=== PATIENT | male | born 1965 | race Caucasian/White ===

== ENCOUNTER 2020-01-22 15:58 | Inpatient (IN) | payer BC, MEDICAID, SELFPAY ==
[2020-01-22] VITALS (9 sets, daily range): BP systolic 128–182; BP diastolic 94–127; PULSE 72–91; RESP 14–23; TEMP 35.7–36; O2SAT 95–98; BMI 31.5
--- NOTE | ~2020-01-22 | US_ITS ---
US right upper quadrant DATE: 01/24/2020 08:32 INDICATION: Elevated liver function tests TECHNIQUE: Real-time imaging and Doppler analysis of the right upper quadrant COMPARISON: None FINDINGS: There is no evidence of gallstones, gallbladder wall thickening, pericholecystic fluid aleisha ection. Negative sonographic Ramirez's sign. The common bile duct measures 3.5 mm, normal. Normal hepatopedal portal venous flow direction. The pancreas is obscured by bowel gas. IMPRESSION: Pancreas is obscured Hepatic steatosis Unremarkable gallbladder Reviewed, dictated and finalized at [facility]. Reviewed, dictated and finalized at location A.
--- NOTE | ~2020-01-22 | CT_ITS ---
EXAMINATION: CT brain wo con EXAM DATE: 01/22/2020 20:15 INDICATION: Seizure in the waiting room. TECHNIQUE: Spiral CT of the head was performed without contrast. Axial, coronal and sagittal images were reviewed. The dose-length product (DLP) for this examination was 605.33 mGy-cm. The exposure w as tailored according to patient size, and iterative reconstruction (ASIR) was used as additional dos e reduction technique. There is no prior study for comparison. FINDINGS: There is no acute intraparenchymal hemorrhage. No evidence of intraparenchymal brain mass lesion. No evidence of acute infarction. There is no mass effect or midline shift. The ventricles are normal in size. There are no extra-axial collections. There are no acute calvarial fractures. T he orbits are unremarkable. Soft tissue is unremarkable. The visualized sinuses and mastoid air lisa ls are well aerated. IMPRESSION: 1. No acute intracranial findings. Reviewed, dictated and finalized at location A.
--- NOTE | ~2020-01-22 | XR_ITS ---
XR chest 1V portable DATE: 01/24/2020 07:59 INDICATION: Shortness of breath TECHNIQUE: Portable AP chest on 01/24/2020 at 0758 hours COMPARISON: None FINDINGS: Normal heart size. No hilar or mediastinal enlargement. No pulmonary infiltrate or consolid ation, pleural effusion or pulmonary vascular congestion or pneumothorax is evident. Mild left apical capping. IMPRESSION: No active cardiopulmonary disease Reviewed, dictated and finalized at location A.
--- NOTE | ~2020-01-22 | XR_ITS ---
EXAMINATION: XR chest 1V portable DATE: 01/27/2020 12:17 INDICATION: Shortness of breath. TECHNIQUE: A single frontal view of the chest was obtained. COMPARISON: Chest single view 01/24/2020 FINDINGS: There is mild atelectasis in left lower lung zone. No pleural effusion or pneumothorax. The heart size is normal. IMPRESSION: 1. Mild atelectasis in left lower lung zone. Reviewed, dictated and finalized at location A.
--- NOTE | 2020-01-22 18:30 | PC.NURSE ---
pt observed in waiting room start shaking and slidding out of a wheel chair. Possible seizure activity noted. RN brought back to room 14 and placed pt on bed with seizure pads. BS 197. RN at bedside for iv insertion. pt placed on cardiac, nibp, o2 monitor at this time.
[2020-01-22 18:33] LABS: Glucose Point of Care 197 (65-105)
[2020-01-22 18:57] LABS: Basophils Absolute Auto 0.1 K/mm3 (0.0-0.1); Basophils Percent Auto 0.4 % (0.2-1.2); Eosinophils Percent Auto 0.3 % (0-4.4); Hematocrit 52.8 % (42.0-52.0); Hemoglobin 18.2 g/dL (14.0-18.0); Immature Granulocyte Absolute 0.07 K/mm3 (0.00-0.031); Immature Granulocyte Percent A 0.6 % (0-0.5); Lymphocytes Absolute Auto 1.81 K/mm3 (0.9-3.2); Lymphocytes Percent Auto 15.8 % (18.3-44.2); Mean Corpuscular HGB Conc 34.5 g/dl (32-36); Mean Corpuscular Volume 95.7 fl (80-100); Mean Platelet Volume 10.2 fl (7.4-10.4); Monocytes Absolute Auto 1.2 K/mm3 (0.1-0.6); Monocytes Percent Auto 10.5 % (2.6-8.5); Neutrophils Absolute Auto 8.3 K/mm3 (1.3-6.7); Neutrophils Percent Auto 72.4 % (45.5-73.1); Platelet Count Result 139 k/mm3 (150-375); Red Blood Count 5.52 M/mm3 (4.6-6.20); Red Cell Distribution Width 12.1 % (11.5-14.5); White Blood Count 11.5 K/mm3 (4.5-10.0)
[2020-01-22 19:14] LABS: Ethanol < 10 mg/dL (<10)
[2020-01-22] MEDS: LACTATED RINGERS 1,000 ML 999 ML IV CONT ×2 (19:35→21:55)
[2020-01-22] MEDS: THIAMINE HCL 200 MG/2 ML VIAL IV PUSH (19:35)
[2020-01-22 19:38] LABS: Albumin Level 4.5 g/dL (3.5-5.1); Alkaline Phosphatase 123 U/L (38-126); Anion Gap 22.8 mmol/L (7-16); Aspartate Amino Transferase 153 U/L (17-59); Blood Urea Nitrogen 10 mg/dL (9-20); Calcium 9.3 mg/dL (8.4-10.2); Carbon Dioxide 24 mmol/L (22-30); Chloride 88 mmol/L (98-107); Estimated CRCL calculation 163 ml/min; Estimated Glomerular Filt Rate > 60; Glucose 156 mg/dL (75-110); Lipase 181 U/L (23-300); Potassium 3.8 mmol/L (3.4-5.0); Sodium 131 mmol/L (137-145)
[2020-01-22 19:45] LABS: Alanine Aminotransferase 66 U/L (4-50)
--- NOTE | 2020-01-22 19:52 | ED.GENADULT ---
HPI - General Adult General Chief complaint: Unspecified Stated complaint: Muscle Spasms Time Seen by Provider: 01/22/20 18:45 Source: patient and family History of Present Illness HPI narrative: 54-year-old male He is currently out of work and as such has been drinking about 18+ beers a day sometimes with a little bit of hard liquor but generally not He was recently seen for back pain and had some new medications prescribed including Neurontin and metformin About 3 days ago he started to become more shaky and tremulous and dizzy and his back pain got worse He is also had nausea vomiting and anorexia for a couple of days As such his alcohol consumption is rather precipitously dropped from the above 18 beers a day to 0-1 beers a day His shakiness has increased His thinks he may have been hallucinating He had a brief seizure in the waiting room while his blood sugar was 190 Onset (ago): day(s) Associated symptoms: confusion, diaphoresis, loss of appetite, malaise, nausea/vomiting and seizure Treatments prior to arrival: none Related Data Home Medications Medication Instructions Recorded Confirmed metoprolol tartrate 01/22/20 sertraline 01/22/20 Allergies Allergy/AdvReac Type Severity Reaction Status Date / Time No Known Allergies Allergy Unverified 01/22/20 16:48 Review of Systems Review of Systems: All systems reviewed & are unremarkable except as noted in HPI and below Constitutional: Constitutional: Reports chills, Reports fatigue, Denies fever(s), Denies headache(s) and Denies night sweats Eyes: Eyes: Denies change in vision, Denies loss of vision and Denies other visual disturbances ENT: Denies headache(s), Denies hoarseness, Denies epistaxis, Denies nasal congestion and Denies sore throat Cardiovascular: Cardiovascular: Denies chest pain, Denies leg edema, Denies palpitations and Denies dyspnea Respiratory: Respiratory: Denies cough, Denies dyspnea and Denies wheezing Gastrointestinal: Gastrointestinal: Denies abdominal pain, Reports diarrhea, Reports nausea and Reports vomiting Genitourinary: Genitourinary: Denies hematuria, Denies dysuria and Denies urinary frequency Musculoskeletal: Musculoskeletal: Denies abnormal gait, Denies deformity, Denies joint swelling, Denies muscle weakness and Denies numbness Integumentary/Breasts: Skin/Breast: Denies rash, Denies unusual bruising and Denies wounds Neurologic: Denies abnormal gait, Reports confusion, Reports dizziness, Denies headache(s), Denies focal weakness, Denies loss of vision, Denies numbness and Reports weakness Psychiatric: Psychiatric: Reports no additional psychiatric complaints Endocrine: Endocrine: Denies fatigue and Denies palpitations Hematologic/Lymphatic: Hematologic/Lymphatic: Denies easy bleeding and Denies easy bruising Allergic/Immunologic: Allergic/Immunologic: Denies wheezing [facility] Social History Social History Gender identity (if verbalized by the patient): Male Exam Const: General: confusion Limitations: altered mental status HENMT: Head: normal to inspection Mouth: Yes moist mucous membranes Other: oral laceration Eyes: Conjunctivae: conjunctivae normal Pupils: Equal, round and reactive pupils present Resp: Effort & Inspection: normal respiratory effort Auscultation: clear to auscultation bilaterally and no wheezes Cardio: Rate: regular rate Rhythm: regular rhythm GI: Inspection: non-distended GI Palp: Yes Soft to palpation Skin: General skin exam: normal color and no jaundice Neuro: General: moves all extremities, no meningeal signs and no focal motor deficits Other: Tremulous Extrem: Other: Abrasion to the back of the left shoulder Course Course Emergency Course: d/w dr verdugo for admit wd tx'ed w/ jarek cote Vital Signs Vital signs: Vital Signs Temperature 35.7 C L 01/22/20 16:36 Pulse Rate 91 01/22/20 16:36
--- NOTE | 2020-01-22 20:05 | ECG_ITS ---
Measurements Intervals [place] Rate: 72 P: 66 [place]: 173 QRS: 4 QRSD: 96 T: 47 QT: 402 QTc: 443 Interpretive Statements SINUS RHYTHM BASELINE ARTIFACT- I, II, III, AVR, AVL, AVF, V1-V6 BORDERLINE ECG Electronically Signed On 01-23-2020 7:34:32 CDT by Damir Larsen D.O.
[2020-01-22 21:04] LABS: Amphetamine Screen Urine Negative (Negative); Barbiturate Screen Urine Negative (Negative); Benzodiazepines Screen Urine Positive (Negative); Cannabinoid Screen Urine Negative (Negative); Cocaine Screen Urine Negative (Negative); Methadone Screen Urine Negative (Negative); Opiate Screen Urine Negative (Negative); Phencyclidine Screen Urine Negative (Negative)
[2020-01-22] MEDS: chlordiazePOXIDE 25 MG CAPSULE 50 MG PO ×2 (21:55→23:59)
--- NOTE | 2020-01-22 23:15 | ADMGEN ---
This patient, Vu Yung, was admitted to IMU Room 207-01. Patient/family oriented to hospital policies and general routines including ID bracelet, bed and alarms, visiting hours, pain management, procedures, bathroom and other care routines, personal items, smoking policy, room service/diet, and visiting hours. Valuables list has been completed. Information on how to activate the Rapid Response Team has been discussed. Patient/Family are encouraged to report perceived risks to care and to ask questions if they do not understand what they are told or what they should do.
--- NOTE | 2020-01-22 23:30 | PM.IMHP ---
H&P: HPI History of Present Illness Chief complaint: muscle spasms, shaking Narrative: date and time of patient contact: 01/22/2020 at 11:30 p.m. Vu Yung is a 54 year old male with a past medical history of hypertension, diabetes and chronic alcohol abuse who presented to the ER with complaints of involuntary muscle spasms and shaking. he reports that he went to a new primary care doctor January 06 and was started on Wellbutrin in addition to his prior prescription for sertraline. He returned to his primary care provider on the and received new prescriptions for metformin Neurontin and diclofenac. He did not start the metformin. However he did start the Neurontin and diclofenac. A few days after starting the medications he became dizzy And had some vomiting. He stopped taking the medications. however he had not been able to drink his usual amount of alcohol during the days when he was having dizziness and vomiting. He denies hematemesis or coffee-ground emesis. he has not had any further nausea or vomiting since arrival to the ER. He denies dizziness currently. He has not had any diarrhea or changes in bowel habits. He usually drinks about 18 alcoholic beverages a day. Over recent days he has only been able to drink 1 or 2 alcoholic beverages. His last alcoholic beverage was at least 2 days ago. The patient is easily distracted and had reported having some visual hallucinations. He reports a couple of days of having hallucinations was laying in bed. He would see objects that he thought were present but when he would reach for them they would be gone. He had also been noticing muscle spasms in his legs and shaking all over. he had been unable to get up and walk around due to his shaking. His girlfriend thought that his symptoms may be due to anxiety because the patient's brother 3 days ago complications of coronary artery disease and stage IV lung cancer. Patient was tremoring so much in the ER waiting room that it was thought he may have had a seizure. The patient vehemently denies having a seizure. He still states that he was having an anxiety attack. at the time of my interview patient could not do serial additions and stated that her 7+ 7 equal 13. He initially had difficulty naming the hospital. He required frequent redirection and was repeatedly trying to climb out of the bed. He had perfuse diaphoresis and was tremoring to the point that he was shaking the bed. He stated that he has had intermittent paresthesias over the last couple of days. Reports the paresthesias have improved since he has received medications here. He reported having facial paresthesias a couple of weeks ago and was evaluated at [facility]. Patient denies feeling anxious but is evasive when answering questions regarding anxiety or mood. The patient's CIWA score at the time my evaluation was 23. Source of information is ER records and patient report. The patient himself is a poor historian. Review of Systems Review of Systems: Narrative: 12 systems were reviewed with pertinent positives and negatives per HPI. Except as documented in the HPI, all other systems were reviewed and are negative. However , the patient is confused and is a poor historian. [facility] Past Medical History Medical History (Updated 01/23/20 @ 02:07 by Shayy Qureshi DO) Chronic lower back pain Depression Essential hypertension Obstructive sleep apnea intolerant to CPAP therapy Type 2 diabetes mellitus Surgical History Surgical History (Updated 01/23/20 @ 00:48 by Shayy Qureshi DO) History of hand surgery right hand surgery x5 due to trauma Family History Family History (Updated 01/23/20 @ 01:55 by Shayy Qureshi DO) Sibling , brother 01/20/2020 At 61 years of age Lung cancer Heart attack Social History Social History (Updated 01/23/20 @ 01:57 by Shayy Qureshi DO) Social History: Primary care provider:
[2020-01-23] VITALS (21 sets, daily range): BP systolic 97–159; BP diastolic 51–104; PULSE 65–101; RESP 18–45; TEMP 36.5–37.7; O2SAT 93–100
[2020-01-23 00:04] LABS: Glucose Point of Care 138 (65-105)
[2020-01-23] MEDS: chlordiazePOXIDE 25 MG CAPSULE 50 MG PO (00:14)
[2020-01-23] MEDS: LACTATED RINGERS 1,000 ML 125 ML IV CONT ×2 (00:17→07:57)
[2020-01-23] MEDS: NICOTINE (*PBKC) 4 MG GUM PO (03:54)
[2020-01-23] MEDS: chlordiazePOXIDE 25 MG CAPSULE 100 MG PO ×2 (05:07→14:19)
[2020-01-23 05:43] LABS: Glucose Point of Care 109 (65-105)
--- NOTE | 2020-01-23 05:43 | P.PNCROSS_ITS ---
Event Note Event Note Event Note: 01/23/2020 at around 5:20 a.m. nursing staff called me to notify me that the patient had climbed out of bed and was crawling on the floor. He was searching the floor for his nephews toy. The patient had artery he received over 250 mg and 112 hours. He had received a stat dose of 2 mg of Ativan in addition to the 2 mg of Ativan he had received an hour and 15 minutes prior. His next p.r.n. dose of Ativan was available to be given in subsequently the patient received 6 mg of Ativan in 2 hours. Despite these medications and measures the patient's CIWA score which had initially improved from 23 down to 20 has now climbed up to 30. on examination:He was having continuous hallucinations, moderately agitated and restless, extremely anxious, with obvious sweating and continuous tremor. Assessment: Alcohol withdrawal with worsening delirium Plan: I contacted the feather separator who agreed the patient would benefit from transfer to the ICU. I have ordered a Precedex bolus and continuous infusion. 30 minutes was spent in critical care activities. This case had a high probability of a clinically significant, sudden, or life threatening deterioration of this patient's condition which required my full and direct attention, intervention and personal management.
--- NOTE | 2020-01-23 06:06 | PC.NURSE ---
Called and spoke with pt's harriet Manriquez to let her know that pt would need to be moved over to icu for a sedative drip for withdrawal. She states that she understands.
--- NOTE | 2020-01-23 06:34 | PC.NURSE ---
This patient, Vu Yung, was received from [ 207] on 01/23/20 at 0620. Personal belongings list checked and signed. Patient/family oriented to unit policies and routines
--- NOTE | 2020-01-23 06:34 | PC.NURSE ---
This patient, Vu Yung, was transferred to [ icu 10] on 01/23/20 at 0615 for withdrawal symptoms unmanaged by ativan. Pt to be placed on precedex drip. Personal belongings sent with patient. Belongings list checked and signed with receiving [ ]. Report given to [Shelley ]. Appropriate documentation sent with patient.
[2020-01-23 08:03] LABS: Hematocrit 42.6 % (42.0-52.0); Hemoglobin 14.6 g/dL (14.0-18.0); Immature Platelet Fraction Pct 4.3 % (0.9-11.2); Mean Corpuscular HGB Conc 34.3 g/dl (32-36); Mean Corpuscular Hemoglobin 32.9 pg (26-34); Mean Corpuscular Volume 95.9 fl (80-100); Mean Platelet Volume 9.6 fl (7.4-10.4); Platelet Count Result 80 k/mm3 (150-375); Red Blood Count 4.44 M/mm3 (4.6-6.20); Red Cell Distribution Width 12.3 % (11.5-14.5); White Blood Count 4.7 K/mm3 (4.5-10.0)
[2020-01-23 08:10] LABS: Alanine Aminotransferase 55 U/L (4-50); Albumin Level 3.6 g/dL (3.5-5.1); Alkaline Phosphatase 91 U/L (38-126); Anion Gap 14.2 mmol/L (7-16); Aspartate Amino Transferase 98 U/L (17-59); Bilirubin,Total 2.1 mg/dL (0.2-1.3); Blood Urea Nitrogen 12 mg/dL (9-20); Calcium 8.8 mg/dL (8.4-10.2); Carbon Dioxide 28 mmol/L (22-30); Chloride 93 mmol/L (98-107); Estimated CRCL calculation 186 ml/min; Estimated Glomerular Filt Rate > 60; Glucose 132 mg/dL (75-110); Magnesium 1.4 mg/dL (1.6-2.3); Phosphorus 4.3 mg/dL (2.5-4.5); Potassium 3.2 mmol/L (3.4-5.0); Sodium 132 mmol/L (137-145)
[2020-01-23 08:42] LABS: Lipase 149 U/L (23-300)
[2020-01-23 09:15] LABS: Folic Acid 6.3 ng/mL (2.76->20)
--- NOTE | 2020-01-23 10:00 | WPDCNINT ---
Assessment and Plan Assessment and plan (1) Alcohol withdrawal: Code(s): F10.239 - Alcohol dependence with withdrawal, unspecified Status: Acute Assessment and Plan: Continue CIWA score monitoring; start scheduled Ativan IV (too somnolent for PO Librium at this time) and wean Precedex as able. Continue thiamine and folate. (2) Diabetes mellitus: Code(s): E11.9 - Type 2 diabetes mellitus without complications Status: Acute Assessment and Plan: Continue metformin when able to take PO. (3) Hypertension: Code(s): I10 - Essential (primary) hypertension Status: Acute Assessment and Plan: Continue metoprolol. (4) Thrombocytopenia: Code(s): D69.6 - Thrombocytopenia, unspecified Status: Acute Assessment and Plan: Query if related to alcoholic liver disease/splenic sequestration. May need abdominal imaging. Monitor. No bleeding. (5) Elevated LFTs: Code(s): R79.89 - Other specified abnormal findings of blood chemistry Status: Acute Assessment and Plan: May have alcoholic hepatitis vs development of cirrhosis. Check viral hepatitis panel and RUQ U/S in AM. Trend. Additional Plan Critical care time: 32 minutes. [employer] Consult Note Consult date: 01/23/20 Time Seen: 08:00 HPI: Vu Yung is a 54 year old male with a history of alcoholism, HTN, DM II, and ILYA not on CPAP who presented to the ED with involuntary shaking. The history is obtained from the Hospitalist H&P as he is currently encephalopathic and unable to provide. Per the H&P: He reports that he went to a new primary care doctor January 06 and was started on Wellbutrin in addition to his prior prescription for sertraline. He returned to his primary care provider on the and received new prescriptions for metformin Neurontin and diclofenac. He did not start the metformin. However he did start the Neurontin and diclofenac. A few days after starting the medications he became dizzy And had some vomiting. He stopped taking the medications. however he had not been able to drink his usual amount of alcohol during the days when he was having dizziness and vomiting. He typically drinks 18 beers a day but has not had a drink for the past 2-4 days. His brother 3 days prior to admission due to lung CA and CAD which may have contributed to his symptoms. He was admitted to the medical floor for alcohol withdrawals but had continued symptoms. He was transferred to the ICU for Precedex infusion. He has never had withdrawals before per his girlfriend. Review of Systems Review of Systems: ROS unobtainable: Yes unobtainable due to mental status PMFSH Past Medical History Medical History (Updated 01/23/20 @ 14:30 by Ildefonso Esquivel DO) Chronic lower back pain Depression Essential hypertension Obstructive sleep apnea intolerant to CPAP therapy Type 2 diabetes mellitus Surgical History Surgical History (Updated 01/23/20 @ 00:48 by Shayy Qureshi DO) History of hand surgery right hand surgery x5 due to trauma Family History Family History (Updated 01/23/20 @ 01:55 by Shayy Qureshi DO) Sibling , brother 01/20/2020 At 61 years of age Lung cancer Heart attack Social History Social History (Updated 01/23/20 @ 01:57 by Shayy Qureshi DO) Social History: Primary care provider: Sloan Peng the patient has 3 adult children who reportedly healthy. Smoking status: Former smoker Smokeless tobacco user: chewing tobacco Additional smoking assessment comments: 1 can of chewing tobacco daily since age 21. Alcohol intake: current Drinks per week: 126 Alcohol use details: Patient drinks about 18 pack a day. He has drank heavily since was 19 years old. Substance use: former Substance use type: marijuana Additional living arrangements comments: The patient lives with girlfriend for the last 8 years. He has a
[2020-01-23 13:26] LABS: Glucose Point of Care 128 (65-105)
[2020-01-23] MEDS: FAMOTIDINE 20 MG/2 ML VIAL IV PUSH ×2 (14:20→21:47)
[2020-01-23] MEDS: ENOXAPARIN 40 MG/0.4 ML SYRINGE SUB-Q (14:20)
[2020-01-23] MEDS: FOLIC ACID 1 MG TABLET PO (14:21)
[2020-01-23] MEDS: metFORMIN HCL 500 MG TABLET PO ×2 (14:21→18:29)
[2020-01-23] MEDS: SERTRALINE HCL 50 MG TABLET 100 MG PO (14:21)
[2020-01-23] MEDS: METOPROLOL SUCCINATE EXT REL 100 MG TABCR 200 MG PO (14:21)
[2020-01-23] MEDS: THIAMINE HCL 100 MG TABLET PO (14:22)
--- NOTE | 2020-01-23 14:46 | PM.IMPN ---
Progress Note: A&P Assessment and Plan (1) Alcohol withdrawal: Code(s): F10.239 - Alcohol dependence with withdrawal, unspecified Status: Acute Assessment and Plan: Patient was having hallucinations and his CIWA score on initial assessment was 23. Patient received Ativan IV and high dose Librium but his condition worsened and ultimately moved to ICU of 01/23/20 and started on Precedex. Librium stopped and started on scheduled Ativan IV. Appreciate concessions manager input. Continue Thiamine and Folate. (2) Alcoholism: Code(s): F10.20 - Alcohol dependence, uncomplicated Status: Acute Assessment and Plan: Will need to educate patient about benefits of abstaining from alcohol later. CM to provide information about services available to help stop drinking. (3) Diabetes mellitus: Code(s): E11.9 - Type 2 diabetes mellitus without complications Status: Acute Assessment and Plan: Glucose reviewed on 01/23/2020. Glucose well controlled. Metformin has been resumed. Continue to monitor with Accu-Cheks covering with sliding scale protocol. (4) Hypertension: Code(s): I10 - Essential (primary) hypertension Status: Acute Assessment and Plan: BP reviewed on 01/23/20. BP soft at times but overall stable. Continue to monitor closely. Continue Metoprolol XL 200mg. Watch for lows. (5) Polycythemia: Code(s): D75.1 - Secondary polycythemia Status: Acute Assessment and Plan: Hgb 18.2. [place] 2nd to volume depletion. Repeat Hgb down to 14. Continue to monitor. (6) Obstructive sleep apnea: Code(s): G47.33 - Obstructive sleep apnea (adult) (pediatric) Status: Acute Assessment and Plan: Margarita has odd respiratory pattern when he sleeps which could be related to his untreated ILYA and the sedation. Monitor closely. (7) Elevated LFTs: Code(s): R79.89 - Other specified abnormal findings of blood chemistry Status: Acute Assessment and Plan: LFTs elevated on admission with TB 2, AST 153 and ALT 66. Related to alcoholism and probable underlying alcoholic liver disease. AST and ALT trending downward. Will check RUQ US. Check hepatitis panel (8) Thrombocytopenia: Code(s): D69.6 - Thrombocytopenia, unspecified Status: Acute Assessment and Plan: Plt count 139K on admission but has dropped to 80K. Probably related to either underlying live disease or the toxic effects of alcohol. Contineue to monitor. Subjective Date/time seen: 01/23/20 14:46 Interval history: 54yo male with alcoholism, HTN and DM here for alcohol withdrawal. Patient moved to the ICU earlier and started on Precedex due to hallucinations and agitation. Patient seen in the ICU and is awake but not very alert with mumbled speech. Family in the room. Exam Narrative: Exam Narrative: AF 133/68 73 37 93% Gen - tachypneic with short breaths Chest - clear anteriorly and in the flanks. CV - RRR S1/S2; Tele showing no significnat dysrhythmias Abd - Soft, obese, NT, umbilical reducible hernia noted Ext - No pedal edema Neuro - mumbled speech Skin - diaphoretic Called by RN about increased RR and more somnolent so Precedex to be turned down. Returned to see patient and he was tachypneic sleeping but improved when awoke. He mildly obtunded but oriented x4. philosophy instructor equal. (seen after Precedex turned down) Objective Data Vital Signs Vital Signs: Vital Signs - 24 hr 01/22/20 16:36 01/22/20 18:34 01/22/20 19:36 Temperature 96.2 F L Pulse Rate 91 72 89 Pulse Rate [Monitor] Respiratory Rate 18 14 23 H Blood Pressure 128/96 H 182/95 H 158/99 H Pulse Oximetry 98 98 96 01/22/20 22:04 01/22/20 22:09 01/22/20 23:01 Temperature Pulse Rate 90 90 90 Pulse Rate [Monitor] Respiratory Rate 18 18 18 Blood Pressure 137/127 H 137/127 H 137/127 H Pulse Oximetry 95 95 95 01/22/20 23:16 01/22/20
[2020-01-23] MEDS: MAGNESIUM SULF 2 GM/WATER 50ML 2 GM/50 ML BAG IVPB (15:04)
[2020-01-23] MEDS: SODIUM CHLORIDE 0.9% IV 1,000 ML 100 ML IV CONT (15:04)
[2020-01-23 22:35] LABS: Alveolar/Arterial O2 Gradient 31.7 mmHg; Base Excess ABG 3.4 mEq/l (+/-2.0); Carboxyhemoglobin 0.8 % THb (0-2.0); Device ROOM AIR; Fractional Inspired Oxygen 21 %; HCO3 ABG 27.2 mEq/l (22.0-26.0); Methemoglobin ABG 0.4 %THb (0-1.5); Modified Allen's Test Pass; Oxygen Content ABG 19.3 %vol (16.0-22.0); Oxygen Saturation ABG 95.3 % (95.0-100.0); Oxyhemoglobin 92.9 % THb (90.0-100.0); PCO2 ABG 38.7 mmHg (35.0-45.0); PO2 ABG 71.7 mmHg (80.0-100.0); PO2 FiO2 Ratio Arterial Blood 3.41 %; Reduced Hemoglobin 5.9 %THb (0-5.0); Site Drawn RIGHT RADIAL; Total Hemoglobin 14.8 g/dL (12.0-18.0); pH ABG 7.465 (7.350-7.450)
[2020-01-24] VITALS (27 sets, daily range): BP systolic 94–158; BP diastolic 63–108; PULSE 62–86; RESP 20–41; TEMP 36.7–37.7; O2SAT 93–99
[2020-01-24 01:17] LABS: Glucose Point of Care 110 (65-105)
[2020-01-24 04:21] LABS: Basophils Percent Auto 0.5 % (0.2-1.2); Eosinophils Absolute Auto 0.1 K/mm3 (0-0.3); Eosinophils Percent Auto 1.4 % (0-4.4); Hematocrit 40.9 % (42.0-52.0); Hemoglobin 13.8 g/dL (14.0-18.0); Immature Granulocyte Absolute 0.02 K/mm3 (0.00-0.031); Immature Granulocyte Percent A 0.5 % (0-0.5); Immature Platelet Fraction Pct 3.7 % (0.9-11.2); Lymphocytes Absolute Auto 0.73 K/mm3 (0.9-3.2); Lymphocytes Percent Auto 17.6 % (18.3-44.2); Mean Corpuscular HGB Conc 33.7 g/dl (32-36); Mean Corpuscular Hemoglobin 32.9 pg (26-34); Mean Corpuscular Volume 97.4 fl (80-100); Mean Platelet Volume 9.9 fl (7.4-10.4); Monocytes Absolute Auto 0.3 K/mm3 (0.1-0.6); Monocytes Percent Auto 7.5 % (2.6-8.5); Neutrophils Percent Auto 72.5 % (45.5-73.1); Platelet Count Result 75 k/mm3 (150-375); Red Cell Distribution Width 12.3 % (11.5-14.5); White Blood Count 4.1 K/mm3 (4.5-10.0)
[2020-01-24 04:29] LABS: INR 1.2; Prothrombin Time 14.5 Seconds (11.1-14.7)
[2020-01-24 04:38] LABS: Alanine Aminotransferase 50 U/L (4-50); Albumin Level 3.4 g/dL (3.5-5.1); Alkaline Phosphatase 81 U/L (38-126); Anion Gap 10.4 mmol/L (7-16); Aspartate Amino Transferase 86 U/L (17-59); Bilirubin,Total 1.9 mg/dL (0.2-1.3); Blood Urea Nitrogen 11 mg/dL (9-20); Calcium 8.3 mg/dL (8.4-10.2); Carbon Dioxide 30 mmol/L (22-30); Chloride 95 mmol/L (98-107); Estimated CRCL calculation 186 ml/min; Estimated Glomerular Filt Rate > 60; Glucose 109 mg/dL (75-110); Potassium 3.4 mmol/L (3.4-5.0); Sodium 132 mmol/L (137-145)
[2020-01-24 05:49] LABS: Hepatitis B Surface Antigen Negative (Negative)
[2020-01-24 05:55] LABS: HAV RESULT Negative (Negative); Hepatitis B Core IgM Result Negative (Negative)
[2020-01-24 06:07] LABS: Hepatitis C Virus Antibody Negative (Negative)
[2020-01-24] MEDS: SODIUM CHLORIDE 0.9% IV 1,000 ML 100 ML IV CONT ×2 (06:48→16:00)
--- NOTE | 2020-01-24 07:35 | WPDINTPN ---
Progress Note: A&P Assessment and Plan (1) Alcohol withdrawal: Code(s): F10.239 - Alcohol dependence with withdrawal, unspecified Status: Acute Assessment and Plan: Continue CIWA score monitoring; start scheduled PO Librium with PRN IV Ativan and wean Precedex as able. Continue thiamine and folate. (2) Diabetes mellitus: Code(s): E11.9 - Type 2 diabetes mellitus without complications Status: Acute Assessment and Plan: Continue metformin when able to take PO. (3) Hypertension: Code(s): I10 - Essential (primary) hypertension Status: Acute Assessment and Plan: Continue metoprolol. (4) Thrombocytopenia: Code(s): D69.6 - Thrombocytopenia, unspecified Status: Acute Assessment and Plan: Query if related to alcoholic liver disease/splenic sequestration. Monitor. No bleeding. (5) Elevated LFTs: Code(s): R79.89 - Other specified abnormal findings of blood chemistry Status: Acute Assessment and Plan: RUQ U/S suggestive of alcoholic steatosis. Additional Plan Critical care time: 32 minutes. Subjective Date/time seen: 01/24/20 07:35 Pt denies any complaints. Remains on Precedex at 0.2mcg/kg/hr. Review of Systems Review of Systems: All systems reviewed & are unremarkable except as noted in HPI and below (HPI) Exam Const: General: no acute distress HENMT: Mouth: Yes moist mucous membranes Eyes: Pupils: Equal, round and reactive pupils present Neck: Neck: no JVD Resp: Auscultation: clear to auscultation bilaterally Other: more tachypneic today, audible wheezes in all lung granda Cardio: Rate: regular rate Rhythm: regular rhythm Skin: General skin exam: normal color Neuro: Cranial nerves: Yes Equal, round and reactive pupils present Other: Moving all extremities spontaneously, tremulous. Extrem: General: normal to inspection Objective Data Vital Signs Vital Signs: Vital Signs - 24 hr 01/23/20 07:48 01/23/20 08:00 01/23/20 09:30 Temperature 36.5 C Pulse Rate 71 67 Pulse Rate [Monitor] 73 Respiratory Rate 39 H 33 H Blood Pressure 104/59 L Pulse Oximetry 96 01/23/20 10:00 01/23/20 11:00 01/23/20 12:00 Temperature 37.1 C Pulse Rate 65 67 68 Pulse Rate [Monitor] 67 67 Respiratory Rate 41 H 41 H 41 H Blood Pressure 101/51 L 97/58 L Pulse Oximetry 97 96 01/23/20 14:00 01/23/20 14:21 01/23/20 16:00 Temperature 36.9 C Pulse Rate 73 75 71 Pulse Rate [Monitor] 73 73 Respiratory Rate 37 H 32 H Blood Pressure 133/68 112/64 Pulse Oximetry 93 100 01/23/20 18:00 01/23/20 20:00 01/23/20 20:01 Temperature 37.7 C H Pulse Rate 76 85 85 Pulse Rate [Monitor] 73 85 Respiratory Rate 20 35 H Blood Pressure 126/85 125/72 125/72 Pulse Oximetry 99 96 01/23/20 22:00 01/23/20 22:01 01/24/20 00:00 Temperature Pulse Rate 71 71 69 Pulse Rate [Monitor] 70 70 Respiratory Rate 45 H Blood Pressure 125/89 125/89 126/77 Pulse Oximetry 93 01/24/20 00:01 01/24/20 02:00 01/24/20 02:01 Temperature 37.7 C H Pulse Rate 69 70 70 Pulse Rate [Monitor] 70 Respiratory Rate 41 H 39 H Blood Pressure 126/77 127/84 127/84 Pulse Oximetry 95 98 01/24/20 04:00 01/24/20 04:01 01/24/20 06:00 Temperature 37.5 C Pulse Rate 75 82 78 Pulse Rate [Monitor] 70 70 Respiratory Rate 30 H Blood Pressure 94/63 L 94/63 L 147/108 H Pulse Oximetry 01/24/20 06:01 Temperature Pulse Rate 78 Pulse Rate [Monitor] Respiratory Rate 29 H Blood Pressure 147/108 H Pulse Oximetry Intake/Output Intake/Output: Intake & Output 01/21/20 01/22/20 01/23/20 01/24/20 23:59 23:59 23:59 23:59 Intake Total 1999 3500 1000 Output Total 525 375 Balance 1999 2975 631 Meds/Results Medications: Active Medications Generic Name Dose Route Start Last Admin Trade Name Freq PRN Reason Stop Dose Admin Acetaminophen 650 mg 01/22/20 21:26 Tylenol Tablet PO Q4H PRN Mil
[2020-01-24] MEDS: FAMOTIDINE 20 MG/2 ML VIAL IV PUSH (08:39)
[2020-01-24] MEDS: METOPROLOL SUCCINATE EXT REL 100 MG TABCR 200 MG PO (08:40)
[2020-01-24] MEDS: FOLIC ACID 1 MG TABLET PO (08:40)
[2020-01-24] MEDS: metFORMIN HCL 500 MG TABLET PO ×2 (08:40→18:31)
[2020-01-24] MEDS: SERTRALINE HCL 50 MG TABLET 100 MG PO (08:40)
[2020-01-24] MEDS: NICOTINE (*PBKC) 4 MG GUM PO (08:41)
[2020-01-24] MEDS: THIAMINE HCL 100 MG TABLET PO (08:41)
[2020-01-24] MEDS: ALBUTEROL SULFATE NEB 2.5 MG/0.5 ML INH INHALATION ×3 (09:25→21:37)
[2020-01-24] MEDS: chlordiazePOXIDE 25 MG CAPSULE PO ×2 (12:46→18:30)
[2020-01-24 13:03] LABS: Glucose Point of Care 119 (65-105)
--- NOTE | 2020-01-24 19:04 | PM.IMPN ---
Progress Note: A&P Assessment and Plan (1) Alcohol withdrawal: Code(s): F10.239 - Alcohol dependence with withdrawal, unspecified Status: Acute Assessment and Plan: Patient was having hallucinations and his CIWA score on initial assessment was 23. Patient received Ativan IV and high dose Librium but his condition worsened and ultimately moved to ICU of 01/23/20 and started on Precedex. Currently on Precedex and Librium. Ativan IV availoable as needed. Appreciate olericulturist input. Continue Thiamine and Folate. (2) Alcoholism: Code(s): F10.20 - Alcohol dependence, uncomplicated Status: Acute Assessment and Plan: Will need to educate patient about benefits of abstaining from alcohol later. CM to provide information about services available to help stop drinking. Continue thiamine and folate. (3) Diabetes mellitus: Code(s): E11.9 - Type 2 diabetes mellitus without complications Status: Acute Assessment and Plan: Glucose reviewed on 01/24/2020. Glucose well controlled. Metformin has been resumed. Continue to monitor with Accu-Cheks covering with sliding scale protocol. (4) Hypertension: Code(s): I10 - Essential (primary) hypertension Status: Acute Assessment and Plan: BP reviewed on 01/24/20. BP overall stable. Continue to monitor closely. Continue Metoprolol XL 200mg. HR okay. Watch for lows. (5) Polycythemia: Code(s): D75.1 - Secondary polycythemia Status: Acute Assessment and Plan: Hgb 18.2. [place] 2nd to volume depletion. Repeat Hgb down to 14. Continue to monitor. (6) Obstructive sleep apnea: Code(s): G47.33 - Obstructive sleep apnea (adult) (pediatric) Status: Acute Assessment and Plan: Pateint has odd respiratory pattern when he sleeps which could be related to his untreated ILYA and/or the sedation. Monitor closely. Will encourage complinace when he is down on the sedation. (7) Elevated LFTs: Code(s): R79.89 - Other specified abnormal findings of blood chemistry Status: Acute Assessment and Plan: LFTs elevated on admission with TB 2, AST 153 and ALT 66. Related to alcoholism and/or probable underlying alcoholic liver disease. AST and ALT trending downward. RUQ US showing hepatic steatosis. Hepatitis panel negative. (8) Thrombocytopenia: Code(s): D69.6 - Thrombocytopenia, unspecified Status: Acute Assessment and Plan: Plt count 139K on admission but has dropped to 75K. Probably related to either underlying live disease and/or the toxic effects of alcohol. Continue to monitor. Subjective Date/time seen: 01/24/20 19:04 Interval history: 54yo male with alcoholism, HTN and DM here for alcohol withdrawal. Patient more tremulous earlier per RN but better now. Patietn eating okay. He feels lethargic. Still on Precedex. Oral medications adjusted. Has not been able to wean down precendex today. No CP or SOB. +BM. Urine incontinent. Exam Narrative: Exam Narrative: AF 131/75 80 23 98% Gen - NARD sitting up in bed Chest - CTA bilaterally CV - RRR S1/S2; Tele showing no significant dysrhythmias Abd - Soft, obese, NT, umbilical reducible hernia noted Ext - No pedal edema Neuro - Alert, mildly obtunded but oriented x4. mild tremors notes Skin - warm and dry Objective Data Vital Signs Vital Signs: Vital Signs - 24 hr 01/23/20 20:00 01/23/20 20:01 01/23/20 22:00 Temperature 99.9 F H Pulse Rate 85 85 71 Pulse Rate [Bilateral Pedal (Dorsalis Pedis) Palpation] Pulse Rate [Monitor] 85 70 Respiratory Rate 35 H Blood Pressure 125/72 125/72 125/89 Pulse Oximetry 96 01/23/20 22:01 01/24/20 00:00 01/24/20 00:01 Temperature 99.8 F H Pulse Rate 71 69 69 Pulse Rate [Bilateral Pedal (Dorsalis Pedis) Palpation] Pulse Rate [Monitor] 70 Respiratory Rate 45 H 41 H Blood Pressure 125/89 126/77 126/77
[2020-01-25] VITALS (16 sets, daily range): BP systolic 141–164; BP diastolic 82–106; PULSE 60–82; RESP 17–52; TEMP 36.4–36.9; O2SAT 96–100
[2020-01-25] MEDS: chlordiazePOXIDE 25 MG CAPSULE PO ×2 (00:54→06:03)
[2020-01-25 01:02] LABS: Glucose Point of Care 115 (65-105)
[2020-01-25] MEDS: SODIUM CHLORIDE 0.9% IV 1,000 ML 100 ML IV CONT (02:51)
[2020-01-25 05:10] LABS: Hemoglobin 13.6 g/dL (14.0-18.0); Immature Platelet Fraction Pct 3.9 % (0.9-11.2); Mean Corpuscular Volume 97.1 fl (80-100); Mean Platelet Volume 10.1 fl (7.4-10.4); Platelet Count Result 69 k/mm3 (150-375); Red Blood Count 4.12 M/mm3 (4.6-6.20); White Blood Count 3.6 K/mm3 (4.5-10.0)
[2020-01-25 05:21] LABS: Albumin Level 3.2 g/dL (3.5-5.1); Anion Gap 10.2 mmol/L (7-16); Blood Urea Nitrogen 6 mg/dL (9-20); Carbon Dioxide 29 mmol/L (22-30); Chloride 95 mmol/L (98-107); Estimated CRCL calculation 187 ml/min; Estimated Glomerular Filt Rate > 60; Glucose 109 mg/dL (75-110); Magnesium 1.7 mg/dL (1.6-2.3); Phosphorus 4.3 mg/dL (2.5-4.5); Potassium 3.2 mmol/L (3.4-5.0); Sodium 131 mmol/L (137-145)
[2020-01-25] MEDS: ALBUTEROL SULFATE NEB 2.5 MG/0.5 ML INH INHALATION (06:06)
[2020-01-25] MEDS: SERTRALINE HCL 50 MG TABLET 100 MG PO (08:58)
[2020-01-25] MEDS: FOLIC ACID 1 MG TABLET PO (08:58)
[2020-01-25] MEDS: METOPROLOL SUCCINATE EXT REL 100 MG TABCR 200 MG PO (08:58)
[2020-01-25] MEDS: THIAMINE HCL 100 MG TABLET PO (08:59)
[2020-01-25] MEDS: metFORMIN HCL 500 MG TABLET PO ×2 (08:59→18:27)
[2020-01-25] MEDS: MAGNESIUM SULF 2 GM/WATER 50ML 2 GM/50 ML BAG IVPB (10:59)
[2020-01-25] MEDS: POTASSIUM CHLORIDE 20 MEQ TABLET 40 MEQ PO (10:59)
[2020-01-25 12:21] LABS: Glucose Point of Care 116 (65-105)
[2020-01-25] MEDS: chlordiazePOXIDE 25 MG CAPSULE 50 MG PO ×3 (12:26→23:49)
[2020-01-25 12:33] LABS: Hemoglobin A1C 7.3 % (<5.7)
--- NOTE | 2020-01-25 14:34 | WPDINTPN ---
Progress Note: A&P Assessment and Plan (1) Alcohol withdrawal: Qualifiers: Complication of substance-induced condition: with delirium Qualified Code(s): F10.231 - Alcohol dependence with withdrawal delirium Code(s): F10.239 - Alcohol dependence with withdrawal, unspecified Status: Acute Assessment and Plan: Continue CIWA score monitoring; - increase Librium, continue IV Ativan p.r.n. and Precedex infusion. Wean Precedex as tolerated - Continue thiamine and folate. (2) Diabetes mellitus: Code(s): E11.9 - Type 2 diabetes mellitus without complications Status: Acute Assessment and Plan: Continue metformin when able to take PO. (3) Hypertension: Code(s): I10 - Essential (primary) hypertension Status: Acute Assessment and Plan: Continue metoprolol. (4) Thrombocytopenia: Code(s): D69.6 - Thrombocytopenia, unspecified Status: Acute Assessment and Plan: Query if related to alcoholic liver disease/splenic sequestration. Monitor. No bleeding. (5) Elevated LFTs: Code(s): R79.89 - Other specified abnormal findings of blood chemistry Status: Acute Assessment and Plan: RUQ U/S suggestive of alcoholic steatosis. Additional Plan discussed with patient updated with his condition and plan of care. He is aware that Precedex infusion is being weaned off. Librium doses increased Critical care time: 32 minutes. code status: Full code Subjective Date/time seen: 01/25/20 14:34 Interval history: 01/25/2020: Patient seen and examined this morning. Is awake, alert, able to answer questions appropriately. Patient is on Precedex 0.1 mcg /kg/hr infusion. Patient continues to have mild tremors on outstretched hands. Patient denies any chest pain, shortness of breath, abdominal pain, nausea, vomiting Review of Systems Review of Systems: All systems reviewed & are unremarkable except as noted in HPI and below (HPI) Exam Const: General: no acute distress HENMT: Mouth: Yes moist mucous membranes Eyes: Pupils: Equal, round and reactive pupils present Neck: Neck: no JVD Resp: Effort & Inspection: normal respiratory effort Auscultation: clear to auscultation bilaterally Other: more tachypneic today, audible wheezes in all lung granda Cardio: Rate: regular rate Rhythm: regular rhythm GI: Inspection: non-distended GI Palp: Yes Soft to palpation and No Tenderness to palpation present (GI) Auscultation: normal bowel sounds : Other: deferred Urinary Catheter: Urinary Catheter: urine clear Skin: General skin exam: normal color Neuro: Cranial nerves: Yes Equal, round and reactive pupils present Speech: normal speech Other: patient is awake, alert, answers to questions appropriately and moves all extremities. Patient does have tremors on outstretched hands Extrem: General: normal to inspection, no edema and no pedal edema Psych: Mental Status: mental status grossly normal Affect: Anxious affect present Objective Data Vital Signs Vital Signs: Vital Signs - 24 hr 01/24/20 16:00 01/24/20 16:55 01/24/20 17:08 Temperature Pulse Rate 80 74 69 Pulse Rate [Monitor] 76 Respiratory Rate 38 H 22 H 26 H Blood Pressure 153/93 H Pulse Oximetry 93 01/24/20 18:00 01/24/20 18:29 01/24/20 20:00 Temperature 98.4 F Pulse Rate 77 81 70 Pulse Rate [Monitor] 77 77 Respiratory Rate 20 34 H 34 H Blood Pressure 135/81 130/98 H Pulse Oximetry 98 98 01/24/20 21:37 01/24/20 21:44 01/24/20 22:00 Temperature Pulse Rate 75 71 67 Pulse Rate [Monitor] 77 Respiratory Rate 22 H 24 H 32 H Blood Pressure 158/92 H Pulse Oximetry 96 99 01/25/20 00:00 01/25/20 01:22 01/25/20 02:00 Temperature 98.5 F Pulse Rate 70 67 63 Pulse Rate [Monitor] 77 77 Respiratory Rate 38 H 38 H 30 H Blood Pressure 162/92 H 153/82 H Pulse Oximetry 100 97 01/25/20 02:51 01/25/20 03:50 01/25/20 04:00 Temperat
[2020-01-25] MEDS: NICOTINE (*PBKC) 4 MG GUM PO (16:45)
[2020-01-25 18:02] LABS: Glucose Point of Care 112 (65-105)
--- NOTE | 2020-01-25 21:15 | PM.IMPN ---
Progress Note: A&P Assessment and Plan (1) Alcohol withdrawal: Qualifiers: Complication of substance-induced condition: with delirium Qualified Code(s): F10.231 - Alcohol dependence with withdrawal delirium Code(s): F10.239 - Alcohol dependence with withdrawal, unspecified Status: Acute Assessment and Plan: Patient was having hallucinations and his CIWA score on initial assessment was 23. Patient received Ativan IV and high dose Librium but his condition worsened and ultimately moved to ICU of 01/23/20 and started on Precedex. Able to come off of the Precedex and just on the Librium now. Ativan IV available as needed. Continue Thiamine and Folate. (2) Alcoholism: Code(s): F10.20 - Alcohol dependence, uncomplicated Status: Acute Assessment and Plan: Alcohol cessation reinforced. CM to provide information about services available to help stop drinking. Continue thiamine and folate. (3) Diabetes mellitus: Code(s): E11.9 - Type 2 diabetes mellitus without complications Status: Acute Assessment and Plan: Glucose reviewed on 01/25/2020. Glucose well controlled. Continue Metformin. Continue to monitor with Accu-Cheks covering with sliding scale protocol. (4) Hypertension: Code(s): I10 - Essential (primary) hypertension Status: Acute Assessment and Plan: BP reviewed on 01/25/20. BP mildly elevated at times probably related to withdrawal. Continue to monitor closely. Continue Metoprolol XL 200mg. HR okay. (5) Polycythemia: Code(s): D75.1 - Secondary polycythemia Status: Acute Assessment and Plan: Hgb was 18.2. [place] 2nd to volume depletion. Repeat Hgb down to 13.6 with IV fluids. Continue to monitor intermittently. (6) Obstructive sleep apnea: Code(s): G47.33 - Obstructive sleep apnea (adult) (pediatric) Status: Acute Assessment and Plan: Pateint has odd respiratory pattern when he sleeps which could be related to his untreated ILYA and/or the sedation and/or withdrawal. Monitor closely. (7) Elevated LFTs: Code(s): R79.89 - Other specified abnormal findings of blood chemistry Status: Acute Assessment and Plan: LFTs elevated on admission with TB 2, AST 153 and ALT 66. Related to alcoholism and/or probable underlying alcoholic liver disease. AST and ALT have been trending downward (not checked today). RUQ US showing hepatic steatosis. Hepatitis panel negative. (8) Thrombocytopenia: Code(s): D69.6 - Thrombocytopenia, unspecified Status: Acute Assessment and Plan: Plt count 139K on admission but has dropped to 69K. Probably related to either underlying liver disease and/or the toxic effects of alcohol. Continue to monitor periodically. Lovenox on hold. Subjective Date/time seen: 01/25/20 21:15 Interval history: 54yo male with alcoholism, HTN and DM here for alcohol withdrawal. Patient able to come off of the Precedex and able to moved out of the ICU. He feels less tremulous. Eating okay. No CP or SOB. Exam Narrative: Exam Narrative: AF 153/93 80 18 96% Gen - NARD lying semi-recumbent in bed Chest - decreased BS in the bases o/w clear CV - RRR S1/S2 Abd - Soft, obese, NT, umbilical reducible hernia noted Ext - No pedal edema Neuro - Alert, mildly obtunded but oriented x4. very minimal tremors noted Skin - warm and dry Objective Data Vital Signs Vital Signs: Vital Signs - 24 hr 01/24/20 21:37 01/24/20 21:44 01/24/20 22:00 Temperature Pulse Rate 75 71 67 Pulse Rate [Monitor] 77 Respiratory Rate 22 H 24 H 32 H Blood Pressure 158/92 H Pulse Oximetry 96 99 01/25/20 00:00 01/25/20 01:22 01/25/20 02:00 Temperature 98.5 F Pulse Rate 70 67 63 Pulse Rate [Monitor] 77 77 Respiratory Rate 38 H 38 H 30 H Blood Pressure 162/92 H 153/82 H Pulse Oximetry 100 97 01/25/20 02:51 01/25/20 03:50 07
[2020-01-26] VITALS (8 sets, daily range): BP systolic 107–165; BP diastolic 73–98; PULSE 64–84; RESP 18–22; TEMP 36.2–37; O2SAT 97–99
[2020-01-26 01:04] LABS: Glucose Point of Care 99 (65-105)
[2020-01-26] MEDS: chlordiazePOXIDE 25 MG CAPSULE 50 MG PO ×4 (05:56→23:29)
[2020-01-26] MEDS: ACETAMINOPHEN 325 MG TABLET 650 MG PO (06:00)
[2020-01-26] MEDS: NICOTINE (*PBKC) 4 MG GUM PO ×2 (08:55→12:20)
[2020-01-26] MEDS: METOPROLOL SUCCINATE EXT REL 100 MG TABCR 200 MG PO (09:00)
[2020-01-26] MEDS: SERTRALINE HCL 50 MG TABLET 100 MG PO (09:00)
[2020-01-26] MEDS: FOLIC ACID 1 MG TABLET PO (09:02)
[2020-01-26] MEDS: metFORMIN HCL 500 MG TABLET PO ×2 (09:02→17:05)
[2020-01-26] MEDS: THIAMINE HCL 100 MG TABLET PO (09:04)
--- NOTE | 2020-01-26 12:12 | ADMGEN ---
This patient, Vu Yung, was admitted to [facility] Surg Room 312-01. Patient/family oriented to hospital policies and general routines including ID bracelet, bed and alarms, visiting hours, pain management, procedures, bathroom and other care routines, personal items, smoking policy, room service/diet, and visiting hours. Valuables list has been completed. Information on how to activate the Rapid Response Team has been discussed. Patient/Family are encouraged to report perceived risks to care and to ask questions if they do not understand what they are told or what they should do.
[2020-01-26 12:30] LABS: Glucose Point of Care 121 (65-105)
--- NOTE | 2020-01-26 14:10 | PM.IMPN ---
Progress Note: A&P Assessment and Plan (1) Alcohol withdrawal: Qualifiers: Complication of substance-induced condition: with delirium Qualified Code(s): F10.231 - Alcohol dependence with withdrawal delirium Code(s): F10.239 - Alcohol dependence with withdrawal, unspecified Status: Acute Assessment and Plan: Patient is still tremuolous and shakey. continue thiamine and folate and librium. ON CIWA precautions in IMU (2) Alcoholism: Code(s): F10.20 - Alcohol dependence, uncomplicated Status: Acute Assessment and Plan: Adviced to quit alcholol, rehab outpatient number given to patient pt is calling around today, hopeful discharge octavio AM (3) Diabetes mellitus: Code(s): E11.9 - Type 2 diabetes mellitus without complications Status: Acute Assessment and Plan: Continue to monitor with Accu-Cheks covering with sliding scale protocol. (4) Hypertension: Code(s): I10 - Essential (primary) hypertension Status: Acute Assessment and Plan: continue to watch Bps today bp is 147/81 pt is on metoprolol. (5) Polycythemia: Code(s): D75.1 - Secondary polycythemia Status: Acute Assessment and Plan: Hgb is 13 (6) Obstructive sleep apnea: Code(s): G47.33 - Obstructive sleep apnea (adult) (pediatric) Status: Acute Assessment and Plan: Benefits from a sleep study OPD (7) Elevated LFTs: Code(s): R79.89 - Other specified abnormal findings of blood chemistry Status: Acute Assessment and Plan: LFTs elevated on admission Related to alcoholism. (8) Thrombocytopenia: Code(s): D69.6 - Thrombocytopenia, unspecified Status: Acute Assessment and Plan: PLts are 69. Continue to monitor periodically. Lovenox on hold. pt walking in the room Subjective Date/time seen: 01/26/20 14:10 Interval history: 54yo male with alcoholism, HTN and DM here for alcohol withdrawal. Pt is very shakey and tremulous, just discharged from ICU. Pt is eating better but still appears anxious. Pt is calling outpatient rehab numbers today. Review of Systems Review of Systems: All systems reviewed & are unremarkable except as noted in HPI and below Exam Const: General: cooperative and healthy appearing Nutritional Appearance: overweight Orientation/consciousness: Other orientation findings (Mild confusion at times very anxious and tremulous ) HENMT: Head: normal to inspection Resp: Effort & Inspection: no respiratory distress Auscultation: no rhonchi and no wheezes Cardio: Rate: regular rate Rhythm: regular rhythm GI: Inspection: normal to inspection GI Palp: No abdominal tenderness, No Guarding due to palpation present (GI) and No Hepatomegaly present Auscultation: normal bowel sounds Objective Data Vital Signs Vital Signs: Vital Signs - 24 hr 01/25/20 16:00 01/25/20 20:00 01/26/20 00:00 Temperature 36.8 C 36.7 C Pulse Rate 78 80 74 Pulse Rate [Bilateral Pedal (Dorsalis Pedis) Palpation] Pulse Rate [Monitor] 77 Respiratory Rate 28 H 18 18 Blood Pressure 144/94 H 153/93 H 140/89 Pulse Oximetry 97 96 99 01/26/20 04:00 01/26/20 08:21 01/26/20 09:00 Temperature 36.2 C L Pulse Rate 66 72 Pulse Rate [Bilateral Pedal (Dorsalis Pedis) Palpation] 64 Pulse Rate [Monitor] Respiratory Rate 20 Blood Pressure 107/73 Pulse Oximetry 98 01/26/20 11:50 Temperature 36.8 C Pulse Rate 74 Pulse Rate [Bilateral Pedal (Dorsalis Pedis) Palpation] Pulse Rate [Monitor] Respiratory Rate 18 Blood Pressure 147/81 H Pulse Oximetry 99 Intake/Output Intake/Output: Intake & Output 01/23/20 01/24/20 01/25/20 01/26/20 23:59 23:59 23:59 23:59 Intake Total 3500 5559 1721 480 Output Total 870 9865 1925 300 Balance 2975 2003 180 Meds/Results Medications: Active Medications Generic Name Dose Route Start Last Admin Trade Nam
[2020-01-26 21:34] LABS: Glucose Point of Care 122 (65-105)
[2020-01-27] VITALS (9 sets, daily range): BP systolic 137–149; BP diastolic 86–88; PULSE 78–84; RESP 18–28; TEMP 36.2–37.1; O2SAT 94–98
[2020-01-27] MEDS: chlordiazePOXIDE 25 MG CAPSULE 50 MG PO ×3 (05:34→17:43)
[2020-01-27 05:43] LABS: Glucose Point of Care 102 (65-105)
[2020-01-27] MEDS: SERTRALINE HCL 50 MG TABLET 100 MG PO (09:28)
[2020-01-27] MEDS: THIAMINE HCL 100 MG TABLET PO (09:29)
[2020-01-27] MEDS: FOLIC ACID 1 MG TABLET PO (09:29)
[2020-01-27] MEDS: METOPROLOL SUCCINATE EXT REL 100 MG TABCR 200 MG PO (09:29)
[2020-01-27] MEDS: metFORMIN HCL 500 MG TABLET PO ×2 (09:30→17:39)
--- NOTE | 2020-01-27 12:00 | PM.IMPN ---
Progress Note: A&P Assessment and Plan (1) Alcohol withdrawal: Qualifiers: Complication of substance-induced condition: with delirium Qualified Code(s): F10.231 - Alcohol dependence with withdrawal delirium Code(s): F10.239 - Alcohol dependence with withdrawal, unspecified Status: Acute Assessment and Plan: Patient less tremuolous and shakey. continue thiamine and folate and librium. ON CIWA precautions (2) Alcoholism: Code(s): F10.20 - Alcohol dependence, uncomplicated Status: Acute Assessment and Plan: Adviced to quit alcholol, rehab outpatient number given to patient pt is calling around today, hopeful discharge (3) Diabetes mellitus: Code(s): E11.9 - Type 2 diabetes mellitus without complications Status: Acute Assessment and Plan: Continue to monitor with Accu-Cheks covering with sliding scale protocol. (4) Hypertension: Code(s): I10 - Essential (primary) hypertension Status: Acute Assessment and Plan: pt is on metoprolol. (5) Polycythemia: Code(s): D75.1 - Secondary polycythemia Status: Acute Assessment and Plan: Hgb is 13 (6) Obstructive sleep apnea: Code(s): G47.33 - Obstructive sleep apnea (adult) (pediatric) Status: Acute Assessment and Plan: Benefits from a sleep study OPD order CXR today as pt is slightly SOB and order incentive spirometer (7) Elevated LFTs: Code(s): R79.89 - Other specified abnormal findings of blood chemistry Status: Acute Assessment and Plan: LFTs elevated on admission Related to alcoholism. (8) Thrombocytopenia: Code(s): D69.6 - Thrombocytopenia, unspecified Status: Acute Assessment and Plan: PLts are 69. Continue to monitor periodically. Lovenox on hold. pt walking in the room , rechecks labs in AM Subjective Date/time seen: 01/27/20 12:00 Interval history: 54yo male with alcoholism, HTN and DM here for alcohol withdrawal. Pt appears less tremulous today, but is SOB and weak in his legs. Pt is calling outpatient rehab numbers today. Continue PT/ OT, order CXR and incentive spirometry Review of Systems Review of Systems: All systems reviewed & are unremarkable except as noted in HPI and below Exam Const: General: cooperative and healthy appearing Nutritional Appearance: overweight Orientation/consciousness: Other orientation findings (Mild confusion at times very anxious and tremulous ) Resp: Effort & Inspection: tachypneic Auscultation: no rhonchi and no wheezes Cardio: Rate: regular rate Rhythm: regular rhythm GI: Inspection: normal to inspection Auscultation: normal bowel sounds Objective Data Vital Signs Vital Signs: Vital Signs - 24 hr 01/26/20 14:00 01/26/20 20:00 01/26/20 21:37 Temperature 36.5 C 37.0 C Pulse Rate 81 84 Pulse Rate [Bilateral Pedal (Dorsalis Pedis) Palpation] 80 Respiratory Rate 18 22 H Blood Pressure 165/98 H 151/82 H Pulse Oximetry 98 97 01/27/20 00:00 01/27/20 06:00 01/27/20 08:00 Temperature 36.2 C L Pulse Rate 80 80 Pulse Rate [Bilateral Pedal (Dorsalis Pedis) Palpation] 78 78 Respiratory Rate 22 H 22 H Blood Pressure 149/88 H 149/88 H Pulse Oximetry 98 98 Intake/Output Intake/Output: Intake & Output 01/24/20 01/25/20 01/26/20 01/27/20 23:59 23:59 23:59 23:59 Intake Total 3279 1721 1290 840 Output Total 1275 1925 300 750 Balance 2003 990 90 Meds/Results Medications: Active Medications Generic Name Dose Route Start Last Admin Trade Name Freq PRN Reason Stop Dose Admin Acetaminophen 650 mg 01/22/20 21:26 01/26/20 06:00 Tylenol Tablet PO 650 mg Q4H PRN Administration Mild Pain (1-3) or Fever Albuterol 2.5 mg 01/24/20 07:35 01/25/20 06:06 Albuterol Sulf Neb 2.5mg/0.5ml INHALATION 2.5 mg Q6HRT PRN Administration Shortness Of Breath C
[2020-01-27 12:12] LABS: Glucose Point of Care 141 (65-105)
[2020-01-27 17:54] LABS: Glucose Point of Care 134 (65-105)
[2020-01-27] MEDS: ALBUTEROL SULFATE NEB 2.5 MG/0.5 ML INH INHALATION (21:16)
--- NOTE | 2020-01-27 21:43 | ECG_ITS ---
Measurements Intervals [place] Rate: 82 P: 46 WV: 167 QRS: -14 QRSD: 110 T: 10 QT: 384 QTc: 449 Interpretive Statements SINUS RHYTHM BORDERLINE T WAVE ABNORMALITY- INFERIOR LEADS BASELINE ARTIFACT- II, III, AVR, AVL, AVF, V2 BORDERLINE ECG Electronically Signed On 01-28-2020 7:20:40 CDT by Damir Larsen D.O.
[2020-01-27 21:59] LABS: Hematocrit 40.6 % (42.0-52.0); Mean Corpuscular HGB Conc 34.5 g/dl (32-36); Mean Corpuscular Hemoglobin 32.8 pg (26-34); Mean Corpuscular Volume 95.1 fl (80-100); Mean Platelet Volume 9.6 fl (7.4-10.4); Platelet Count Result 117 k/mm3 (150-375); Red Blood Count 4.27 M/mm3 (4.6-6.20); Red Cell Distribution Width 12.1 % (11.5-14.5); White Blood Count 4.5 K/mm3 (4.5-10.0)
[2020-01-27 22:06] LABS: Alveolar/Arterial O2 Gradient 38.5 mmHg; Base Excess ABG 0.2 mEq/l (+/-2.0); Carboxyhemoglobin 0.7 % THb (0-2.0); Fractional Inspired Oxygen 21 %; HCO3 ABG 23.9 mEq/l (22.0-26.0); Methemoglobin ABG 0.3 %THb (0-1.5); Oxygen Content ABG 19.5 %vol (16.0-22.0); Oxygen Saturation ABG 94.2 % (95.0-100.0); Oxyhemoglobin 92.4 % THb (90.0-100.0); PCO2 ABG 36.4 mmHg (35.0-45.0); PO2 ABG 67.6 mmHg (80.0-100.0); PO2 FiO2 Ratio Arterial Blood 3.22 %; Reduced Hemoglobin 6.6 %THb (0-5.0); pH ABG 7.436 (7.350-7.450)
[2020-01-27 22:07] LABS: Device ROOM AIR; Modified Allen's Test Pass; Site Drawn RIGHT RADIAL
[2020-01-27 22:10] LABS: D Dimer 0.37 ug/mL (<0.48)
[2020-01-27 22:16] LABS: Alanine Aminotransferase 42 U/L (4-50); Albumin Level 3.4 g/dL (3.5-5.1); Alkaline Phosphatase 103 U/L (38-126); Anion Gap 12.3 mmol/L (7-16); Aspartate Amino Transferase 69 U/L (17-59); Blood Urea Nitrogen 11 mg/dL (9-20); Calcium 8.5 mg/dL (8.4-10.2); Carbon Dioxide 26 mmol/L (22-30); Chloride 98 mmol/L (98-107); Estimated CRCL calculation 186 ml/min; Estimated Glomerular Filt Rate > 60; Glucose 109 mg/dL (75-110); Magnesium 1.8 mg/dL (1.6-2.3); Potassium 3.3 mmol/L (3.4-5.0); Sodium 133 mmol/L (137-145)
[2020-01-28] VITALS (7 sets, daily range): BP systolic 129–148; BP diastolic 79–90; PULSE 75–84; RESP 18–44; TEMP 36.4–36.9; O2SAT 96–100
[2020-01-28] MEDS: chlordiazePOXIDE 25 MG CAPSULE 50 MG PO ×4 (00:18→17:09)
[2020-01-28 00:31] LABS: Glucose Point of Care 108 (65-105)
[2020-01-28 05:57] LABS: Glucose Point of Care 97 (65-105)
[2020-01-28 06:16] LABS: Hematocrit 41.9 % (42.0-52.0); Hemoglobin 14.2 g/dL (14.0-18.0); Immature Platelet Fraction Pct 2.8 % (0.9-11.2); Mean Corpuscular HGB Conc 33.9 g/dl (32-36); Mean Corpuscular Volume 97.4 fl (80-100); Mean Platelet Volume 9.6 fl (7.4-10.4); Platelet Count Result 144 k/mm3 (150-375); Red Cell Distribution Width 12.2 % (11.5-14.5); White Blood Count 4.5 K/mm3 (4.5-10.0)
[2020-01-28 06:31] LABS: Anion Gap 11.1 mmol/L (7-16); Blood Urea Nitrogen 10 mg/dL (9-20); Calcium 8.4 mg/dL (8.4-10.2); Carbon Dioxide 28 mmol/L (22-30); Chloride 98 mmol/L (98-107); Estimated CRCL calculation 158 ml/min; Estimated Glomerular Filt Rate > 60; Glucose 102 mg/dL (75-110); Potassium 3.1 mmol/L (3.4-5.0); Sodium 134 mmol/L (137-145)
[2020-01-28] MEDS: THIAMINE HCL 100 MG TABLET PO (08:35)
[2020-01-28] MEDS: metFORMIN HCL 500 MG TABLET PO ×2 (08:35→17:09)
[2020-01-28] MEDS: METOPROLOL SUCCINATE EXT REL 100 MG TABCR 200 MG PO (08:36)
[2020-01-28] MEDS: POTASSIUM CHLORIDE 20 MEQ PACKET (FOR LIQUID) 40 MEQ PO (08:37)
[2020-01-28] MEDS: FOLIC ACID 1 MG TABLET PO (08:37)
[2020-01-28] MEDS: SERTRALINE HCL 50 MG TABLET 100 MG PO (08:38)
--- NOTE | 2020-01-28 12:04 | PM.IMPN ---
Progress Note: A&P Assessment and Plan (1) Alcohol withdrawal: Qualifiers: Complication of substance-induced condition: with delirium Qualified Code(s): F10.231 - Alcohol dependence with withdrawal delirium Code(s): F10.239 - Alcohol dependence with withdrawal, unspecified Status: Acute Assessment and Plan: Patient less tremuolous and shakey. continue thiamine and folate and librium. ON CIWA precautions (2) Alcoholism: Code(s): F10.20 - Alcohol dependence, uncomplicated Status: Acute Assessment and Plan: Adviced to quit alcholol, rehab outpatient number given to patient pt is calling around today, hopeful discharge soon (3) Diabetes mellitus: Code(s): E11.9 - Type 2 diabetes mellitus without complications Status: Acute Assessment and Plan: Continue to monitor with Accu-Cheks covering with sliding scale protocol. (4) Hypertension: Code(s): I10 - Essential (primary) hypertension Status: Acute Assessment and Plan: pt is on metoprolol. (5) Polycythemia: Code(s): D75.1 - Secondary polycythemia Status: Acute Assessment and Plan: Hgb is 13 (6) Obstructive sleep apnea: Code(s): G47.33 - Obstructive sleep apnea (adult) (pediatric) Status: Acute Assessment and Plan: Benefits from a sleep study OPD (7) Elevated LFTs: Code(s): R79.89 - Other specified abnormal findings of blood chemistry Status: Acute Assessment and Plan: LFTs elevated on admission Related to alcoholism. (8) Thrombocytopenia: Code(s): D69.6 - Thrombocytopenia, unspecified Status: Acute Assessment and Plan: PLts are 69. Continue to monitor periodically. Lovenox on hold. pt walking in the room , rechecks labs in AM (9) Bronchitis: Code(s): J40 - Bronchitis, not specified as acute or chronic Status: Acute Assessment and Plan: Order BT oxygen for pt , pt had cxr yesterday Subjective Date/time seen: 01/28/20 12:04 Interval history: 54yo male with alcoholism, HTN and DM here for alcohol withdrawal. Pt appears less tremulous today, but is SOB and weak in his legs. Pt is more SOB and wheezy today, states he chews tobacco. Continue PT/ OT, order BT and spirometry Review of Systems Review of Systems: ROS unobtainable: Yes other (SOB, wheezing, shakes and weakness ) Exam Const: General: cooperative and healthy appearing Nutritional Appearance: overweight Orientation/consciousness: Other orientation findings (Mild confusion at times very anxious and tremulous ) Resp: Effort & Inspection: tachypneic Auscultation: no rhonchi Other: wheezy lungs Cardio: Rate: regular rate Rhythm: regular rhythm GI: Inspection: normal to inspection Auscultation: normal bowel sounds Objective Data Vital Signs Vital Signs: Vital Signs - 24 hr 01/27/20 14:00 01/27/20 16:00 01/27/20 21:18 Temperature 37.1 C Pulse Rate 81 80 Pulse Rate [Bilateral Pedal (Dorsalis Pedis) Palpation] 78 Respiratory Rate 18 24 H Blood Pressure 137/86 137/86 Pulse Oximetry 94 01/27/20 21:28 01/27/20 22:00 01/28/20 06:00 Temperature 36.6 C 36.4 C Pulse Rate 84 84 75 Pulse Rate [Bilateral Pedal (Dorsalis Pedis) Palpation] Respiratory Rate 28 H 24 H 25 H Blood Pressure 146/86 H 148/90 H Pulse Oximetry 96 99 01/28/20 08:36 Temperature Pulse Rate 82 Pulse Rate [Bilateral Pedal (Dorsalis Pedis) Palpation] Respiratory Rate Blood Pressure Pulse Oximetry Intake/Output Intake/Output: Intake & Output 01/25/20 01/26/20 01/27/20 01/28/20 23:59 23:59 23:59 23:59 Intake Total 1721 1290 1640 780 Output Total 3948 478 3307 Balance -204 990 40 780 Meds/Results Medications: Active Medications Generic Name Dose Route Start Last Admin Trade Name Freq PRN Reason Stop Dose Admin Acetaminophen 650 mg 01/22/20 21:26
[2020-01-28 13:20] LABS: Glucose Point of Care 139 (65-105)
--- NOTE | 2020-01-28 15:39 | PC.NURSE ---
1400 CALLED GIRLFRIEND AND REPORTED WHAT DR GOINS IS GOING TO DO FOR DISCHARGE MEDICATION [facility].
[2020-01-28 17:22] LABS: Glucose Point of Care 104 (65-105)
[2020-01-29] VITALS (7 sets, daily range): BP systolic 135–139; BP diastolic 89; PULSE 72–80; RESP 18–22; TEMP 36.6–37.7; O2SAT 93–99
[2020-01-29] MEDS: chlordiazePOXIDE 25 MG CAPSULE 50 MG PO ×4 (00:19→17:13)
[2020-01-29 00:39] LABS: Glucose Point of Care 142 (65-105)
[2020-01-29 00:39] LABS: Glucose Point of Care 124 (65-105)
[2020-01-29 05:55] LABS: Glucose Point of Care 104 (65-105)
[2020-01-29] MEDS: metFORMIN HCL 500 MG TABLET PO ×2 (08:47→17:13)
[2020-01-29] MEDS: METOPROLOL SUCCINATE EXT REL 100 MG TABCR 200 MG PO (08:47)
[2020-01-29] MEDS: FOLIC ACID 1 MG TABLET PO (08:47)
[2020-01-29] MEDS: SERTRALINE HCL 50 MG TABLET 100 MG PO (08:49)
[2020-01-29] MEDS: THIAMINE HCL 100 MG TABLET PO (08:49)
[2020-01-29] MEDS: POTASSIUM CHLORIDE 20 MEQ PACKET (FOR LIQUID) 40 MEQ PO (08:49)
[2020-01-29] MEDS: NICOTINE (*PBKC) 4 MG GUM PO (08:50)
[2020-01-29 13:06] LABS: Glucose Point of Care 123 (65-105)
--- NOTE | 2020-01-29 13:49 | PCDIET ---
Weekly nutritional screen. Patient is tolerating current diet with adequate intake. No weight loss reported. No nutritional needs at this time.
--- NOTE | 2020-01-29 14:36 | PCOTNOTE ---
OT treatment unable to be completed as patient was eating breakfast on first attempt then declined due to fatigue on second attempt. Will continue per plan of care.
--- NOTE | 2020-01-29 15:39 | PM.DS ---
DS: Admitting Diagnosis Admitting Diagnosis Admitting Diagnosis: Alcohol dependence with withdrawal, unspecified DS: Discharge Diagnosis Discharge Diagnosis (1) Alcohol withdrawal: Qualifiers: Complication of substance-induced condition: with delirium Qualified Code(s): F10.231 - Alcohol dependence with withdrawal delirium Code(s): F10.239 - Alcohol dependence with withdrawal, unspecified Status: Resolved Assessment and Plan: (2) Alcoholism: Code(s): F10.20 - Alcohol dependence, uncomplicated Status: Acute Assessment and Plan: Adviced to quit alcholol, rehab outpatient number given to patient. Pt to follow outpatient (3) Diabetes mellitus: Code(s): E11.9 - Type 2 diabetes mellitus without complications Status: Acute Assessment and Plan: Continue to monitor at home (4) Hypertension: Code(s): I10 - Essential (primary) hypertension Status: Acute Assessment and Plan: Pt is on metoprolol. (5) Polycythemia: Code(s): D75.1 - Secondary polycythemia Status: Acute Assessment and Plan: Hgb is 13 (6) Obstructive sleep apnea: Code(s): G47.33 - Obstructive sleep apnea (adult) (pediatric) Status: Acute Assessment and Plan: Benefits from a sleep study OPD (7) Elevated LFTs: Code(s): R79.89 - Other specified abnormal findings of blood chemistry Status: Acute Assessment and Plan: LFTs elevated on admission Related to alcoholism. (8) Thrombocytopenia: Code(s): D69.6 - Thrombocytopenia, unspecified Status: Acute Assessment and Plan: PLts are 69. Continue to monitor periodically. (9) Bronchitis: Code(s): J40 - Bronchitis, not specified as acute or chronic Status: Acute Assessment and Plan: Order BT oxygen, pt looks much better told dc with inhaler DS: Summary Time Spent with Patient Time attestation: Total time spent providing and/or coordinating discharge services:40 minutes on day of discharge Exam Const: General: cooperative and healthy appearing Nutritional Appearance: overweight Resp: Auscultation: no rhonchi and no wheezes Cardio: Rate: regular rate Rhythm: regular rhythm GI: Inspection: normal to inspection Auscultation: normal bowel sounds DS: Data Data Completed and Pending Labs on day of discharge: Labs from last 24 hours 01/29/20 01/29/20 01/29/20 13:03 05:43 00:20 POC Capillary Glucose 123 H 104 124 H 01/28/20 01/28/20 19:54 17:20 POC Capillary Glucose 142 H 104 Discharge Plan Discharge Attending physician on discharge: Nancy Guadarrama Consulting providers: ; Ildefonso Esquivel Discharging Clinician: Nancy Guadarrama Anticipated Discharge Date/Time: 01/29/20 15:34 Patient Disposition: Home, Self-Care Activity: as tolerated Diet: regular Patient Instructions: Antibiotic Form, Alcohol Intoxication (DC), Alcohol Withdrawal (DC) Stand Alone Forms: General Discharge Information Follow-up/Referrals: Danish,NY Guillermo [Primary Care Provider] - Discharge Medications: New chlordiazepoxide HCl 25 mg Capsule 25 mg PO Q6HR Qty: 20 RF: 0 thiamine HCl (vitamin B1) [Vitamin B-1] 100 mg Tablet 100 mg PO QAM Qty: 30 RF: 0 potassium chloride 20 mEq Packet 40 meq PO DAILY Qty: 10 RF: 0 albuterol sulfate [ProAir HFA] 90 mcg/actuation HFA aerosol inhaler 1 inhalation INHALATION QID PRN (Reason: shortness of breath or wheezing) Qty: 6.7 RF: 0 Continued metformin 500 mg tablet 500 mg PO BID RF: 0 bupropion HCl 150 mg tablet sustained-release 12 hr 150 mg PO BID RF: 0 metoprolol succinate 200 mg tablet extended release 24 hr 200 mg PO DAILY RF: 0 sertraline 100 mg tablet 100 mg PO DAILY RF: 0 gabapentin 300 mg capsule 300 mg PO TID RF: 0 diclofenac sodium 75
== END 2020-01-29 17:40 | disposition home or self-care (01) | DRG 775 ==
LOC: ANHED 21:39 → ANHIMU 23:38 → ANHICU 01-23 06:54 → ANH3MEDSUR 01-27 10:22 → ANHICU 02-02 11:58 → ANHIMU 02-02 11:58
PROVIDERS: Family Medicine; Internal Medicine Critical Care Medicine; Physician Assistant; Admitting Provider Internal Medicine; Emergency Provider Emergency Medicine; PCP Physician Assistant; Visit Provider Internal Medicine
DX: F10.231 Alcohol dependence with withdrawal delirium (principal); D69.6 Thrombocytopenia, unspecified; R56.9 Unspecified convulsions; D75.1 Secondary polycythemia; I10 Essential (primary) hypertension; J40 Bronchitis, not specified as acute or chronic; G47.33 Obstructive sleep apnea (adult) (pediatric); F17.220 Nicotine dependence, chewing tobacco, uncomplicated; E11.9 Type 2 diabetes mellitus without complications; R79.89 Other specified abnormal findings of blood chemistry; M54.5 Low back pain; G89.29 Other chronic pain; Z79.84 Long term (current) use of oral hypoglycemic drugs; Z79.899 Other long term (current) drug therapy; Z63.4 Disappearance and death of family member
CPT/HCPCS: 36415; 36600; 70450; 71045; 76705; 80048; 80053; 80069; 80074; 80307; 82375; 82607; 82746; 82805; 83036; 83050; 83690; 83735; 84100; 85025; 85027; 85055; 85380; 85610; 93005; 94640; 96361; 96374; 96375; 97110; 97116; 97161; 97165; 97535; 99285; A9270; J1650; J2060; J3411; J3475; J3480; J7030; J7120

== ENCOUNTER 2024-10-15 10:34 | Emergency (ER) | payer BC, OTHER, SELFPAY ==
--- NOTE | ~2024-10-15 | CT_ITS ---
History: Fall PROCEDURE: CT head without contrast. COMPARISON: 01/22/2020 TECHNIQUE: Axial imaging of the head performed from the skull base to the vertex without IV contrast. Sagittal a nd coronal reformations obtained. DLP: 605 mGy-cm FINDINGS: The ventricles are normal in size, shape and position. There is no mass, mass effect or midline shift. There is no abnormal extra-axial fluid collection or intracranial hemorrhage. Visualized paranasal sinuses are clear. The mastoid air cells are well aerated. No acute displaced fractures within the overlying cranium. Impression: No acute intracranial hemorrhage or suspicious mass effect. Reviewed, dictated and finalized at location A. Impression: No acute intracranial hemorrhage or suspicious mass effect.
--- NOTE | ~2024-10-15 | XR_ITS ---
HISTORY: fall COMPARISON: None TECHNIQUE: 2 views of the left shoulder were performed FINDINGS: No acute fracture. The glenohumeral and acromioclavicular joint space is maintained The visualized portion of the adjacent left lung is clear. The humeral head is well seated within the glenoid fossa. IMPRESSION: No acute fracture or anterior dislocation. Reviewed, dictated and finalized at location A.
--- NOTE | ~2024-10-15 | XR_ITS ---
HISTORY: fall COMPARISON: None TECHNIQUE: 2 views of the left humerus were performed. FINDINGS: No acute or subacute fracture. Joint spaces are preserved and alignment is maintained. Soft tissues are unremarkable without radiopaque foreign body or significant calcification. Age-appropriate mineralization. IMPRESSION: No acute fracture or dislocation, as detailed above. Reviewed, dictated and finalized at location A.
--- NOTE | ~2024-10-15 | XR_ITS ---
EXAMINATION: XR elbow LT min 3V DATE: 10/15/2024 13:17 INDICATION: Left elbow injury post fall TECHNIQUE: Anteroposterior, two oblique and lateral views of the left elbow were obtained. COMPARISON: None. FINDINGS: Alignment is normal. No fracture. Mild osteoarthritis at the left elbow with some subarticular cystli ke changes along the coronoid process of the olecranon and at the capitellum. Small enthesophyte and adjacent corticated enthesopathic ossicle at the lateral epicondyle. Additional small enthesopathic o ssicle at the posterior margin of the medial epicondyles. No elbow joint effusion.. Soft tissues are unremarkable. IMPRESSION: 1. Mild osteoarthritis at the left elbow. No joint effusion or acute osseous abnormality. Reviewed, dictated and finalized at location A. IMPRESSION: 1. Mild osteoarthritis at the left elbow. No joint effusion or acute osseous ab normality.
[2024-10-15 10:49] VITALS: BP 133/78; PULSE 98; RESP 17; TEMP 36.4; O2SAT 97
--- OUTSIDE RECORDS SUMMARY | 2024-10-15 11:24 | XMS_ITS | Clinical Summary ---
Author Organization [facility] Address [address] [place] [address] Care Team Providers Care Tangled Yarn Worker Name Role Phone Edgar Li MD Primary Care Provider [phone] Source Comments [facility],non-owned Affiliates and Associated Physician Practices is amultiple site organization consisting of ambulatory clinics and hospital sitesin [place], [place], [place] and [place]. This disclosure is being madepursuant to the Care Everywhere program and may not contain all information available regarding this patient. Last updated 18.[facility] Allergies No known active allergies Medications * Be aware that medications may not be up to date on this document. Alwaysverify current medications with the patient. atorvastatin (Lipitor) 40 MG tabletIndicatio ns:Diabetes mellitus, new onset (HCC) Take 1 (one) tablet by mouth at bedtime 90 tablet 1 03/18/20 23 Active buPROPion XL 24hr (Wellbutrin-XL) 150 MG tablet Take 1 (one) tablet by mouth once daily 90 tablet 1 03/18/20 23 Active gabapentin (Neurontin) 300 MG capsule Take 1 (one) capsule by mouth 3 times daily 270 capsule 1 03/18/20 23 Active sildenafil (Viagra) 50 MG tablet Take 1 (one) tablet by mouth once as needed 20 tablet 3 03/18/20 23 Active ibuprofen (Motrin) 600 MG tablet Take 1 (one) tablet by mouth every 6 hours as needed for Pain 30 tablet 06/11/20 23 Active senna-docusate (Senokot-S) 8.6-50 MG tablet Take 1 (one) tablet by mouth once daily 30 tablet 06/11/20 23 Active Additional Information Patient not taking.Reported on 08/20/2023 metFORMIN (Glucophage) 500 MG tabletIndicatio ns:Type 2 diabetes mellitus with other specified complication, without long-term current use of insulin (HCC) Take 2 (two) tablets by mouth 2 times daily with morning and evening meal 400 tablet 1 01/15/20 24 025 Active DULoxetine (Cymbalta) 60 MG capsuleIndicati ons:Current severe episode of major depressive disorder without psychotic features without prior episode (HCC) Take 1 capsule by mouth once daily 30 capsule 08/17/19 25 Active Trulicity 1.5 MG/0.5ML injectionIndica tions:Type 2 diabetes mellitus with other specified complication, without long-term current use of insulin (HCC) INJECT 1.5MG SUBCUTANEOUSLY ONCE WEEKLY 4 mL 08/21/19 25 Active chlorthalidone (Hygroton) 25 MG tabletIndicatio ns:Hypertension , unspecified type Take 1 tablet by mouth once daily 30 tablet 08/24/19 25 Active Active Problems Problem Noted Date Diagnosed Date Umbilical hernia without obstruction and without gangrene 05/20/2023 Type 2 diabetes mellitus wit h other specified complication, without long-term current use of insulin 03/18/2023 Current severe episode of ma buck depressive disorder without psychotic features without prior episode 07/25/2021 Obesity 06/07/2010 Gastroesophageal reflux disease 11/10/2009 Essential hypertension 08/09/2005 Panic disorder without agoraphobia 06/05/2004 Resolved Problems Problem Noted Date Diagnosed Date Resolved Date Alcohol abuse, daily use 08/18/2015 Chewing tobacco use 06/16/2013 03/18/20 23 Prediabetes 12/08/2012 03/18/2023 Encounters Date Type Department Care Team Description 09/21/2024 Refill [facility] - Family Medicine [address] [place] [address], [place] [phone] Edgar Li MD Refill Request 09/15/2024 Telephone [facility] [address], [place] [address] Edgar Li MD Appointment 09/14/[address], [place] [address] Edgar Li MD Refill Request 09/14/[address], [place] [address] Edgar Li MD Refill Request 08/23/[address], [place] [address] Edgar Li MD Refill Request 08/21/[address], [place] [address] Edgar Li MD Refill Request 08/15/[address], [place] [address] Edgar Li MD Refill Request 07/29/[address], [place] [address] Edgar Li MD Refill Request 07/28/[address], [place] [address] Edgar Li MD Refill Request 07/19/[address], [place] [address] Edgar Li MD Refill Request from Last 3 Months Immunizations Immunization Administration Dates Next Due INFLUENZA VACCINE, TRIV. (AF LURIA, FLUZONE TRIVALENT; 6MO+) (IIV3) 04/02/2014,03/31/2014 FLU VACCINE TRI IIV3 SPLIT PF IM (FLUVIRIN) 09/2017 HEP B VACCINE, ADULT 3 DOSE 08/20/202309/30 INFLUENZA VACCINE 07/04/2017 INFLUENZA VACCINE, QUADR. (F LUZONE; FLULAVAL; FLUARIX; AFLURIA QUADRIVALENT; 6MO+), 0.5 ML (IIV4) 07/02/2023 PNEUMOCOCCAL PPSV23 07/25/2021 TDAP (7yrs+) 07/25/2021,11/08/2009 TETANUS 12/06/2009 Zoster Hzv Vacc Recombinant Inj Im 08/20/2023, Social History Tobacco Use Types Packs/Day Years Used Date Smoking Tobacco: Never Smokeless Tobacco: Current Chew Tobacco Cessation:Ready to Q uit: Not Asked; Counseling Given: Not Answered Alcohol Use Standard Drinks/Week Comments Not Currently 0 (1 standard drink = 0.6 oz pur e alcohol) AUDIT-C Answer Date Recorded Q1: How often do you have a drink containing alc ohol? Never 05/19/2021 Q2: How many drinks containi ng alcohol do you have on a typical day when you are drinking? 1 or 2 05/19/2021 Q3: How often do you have six or more drinks on one occasion? Never 05/19/2021 PHQ-2 Answer Date Recorded Patient Health Questionnaire-2 Score 0 07/02/2023 Sex and Gender Information Value Date Recorded Sex Assigned at Not on file Legal Sex Male 12:39 PM CDT Gender Identity Not on file Sexual Orientation Not on file Last Filed Vital Signs Vital Sign Reading Time Taken Comments Blood Pressure 124/88 08/20/2023 1:11 PM JANITORIAL TECH Pulse 105 08/20/2023 1:11 PM JANITORIAL TECH Temperature 36.7 C (98.1 F) 06/11/2023 10:09 AM JANITORIAL TECH Respiratory Rate 16 06/17/2023 3:24 PM JANITORIAL TECH Oxygen Saturation 98% 08/20/2023 1:11 PM JANITORIAL TECH Inhaled Oxygen Concentration - - Weight 108.4 kg (239 lb) 08/20/2023 1:11 PM JANITORIAL TECH Height 188 cm (6' 2 ) 08/20/2023 1:11 PM JANITORIAL TECH Body Mass Index 30.69 08/20/2023 1:11 PM JANITORIAL TECH Plan of Treatment Health Maintenance Due Date Last Done Comments COLOGUARD (AGES 45-75) - COLON CA SCREENING 1964 COLON MONITORING 1964 COLONOSCOPY - COLON CA SCREENING 1964 CT COLONOGRAPHY - COLON CA SCREENING 1964 Colorectal Cancer Screening 1964 FIT - COLON CA SCREENING 1964 FLEX SIG - COLON CA SCREENING 1964 PNEUMOCOCCAL VACCINE 50+ (2 of 2 - PCV) 07/25/2022 07/25/2021 HEPATITIS B VACCINE (2 of 3 - Risk 3-dose series) 09/17/2023 08/20/2023 DIABETES-HGB A1C 11/18/2023 08/20/2023, , 03/09/2022, Additional history exists COVID-19 VACCINE (2 - season) 2024 06/21/2021 DIABETES-FOOT EXAM WITH MONOFILAMENT 03/18/2024 03/18/2023 DIABETES-SERUM CREATININE 03/26/20242022, 03/09/2022, 07/31/2021, Additional history exists DEPRESSION SCREENING 07/01/2024 07/02/2023, 05/06/2023, 03/18/2023, Additional history exists DIABETES - URINE PROTEIN SCREENING 07/01/2024 03/26/2023, 07/31/2021, 05/03/2014 DIABETES RETINOPATHY SCREENING 01/29/2025 01/29/2023 (Done Outside Per Patient) INFLUENZA VACCINE (Season Ended) 2025 07/02/2023, 07/04/2017, 07/04/2017, Additional history exists DTAP/TDAP/TD VACCINES (4 - Td or Tdap) 07/25/2031 07/25/2021, 12/06/2009, 11/08/2009 Respiratory Syncytial Virus (RSV) Vaccine Pt: or over 60 yrs (1 - 1-dose 75+ series) 2039 HEPATITIS C SCREENING Completed 07/31/2021 HIV SCREENING Completed 07/31/2021 ZOSTER VACCINE Completed 08/20/2023, 07/25/2021 HIB VACCINE Aged Out No longer eligi ble based on patient's age to complete this topic HPV VACCINE Aged Out No longer eligi ble based on patient's age to complete this topic MENINGOCOCCAL (Group B) VACCINE SHARED DECISION-MAKING Aged Out No longer eligible based on patient's age to complete this topic MENINGOCOCCAL GROUPS A/C/Y/W VACCINE Aged Out No longer eligible based on patient's age to complete this topic Medical Devices Implanted Type Area Automated Teller Manager Device Identifier Shelf Expiration Date Model / Serial / Lot Mesh Srg Ventralight St Sepra Echo 4.5in Implanted:Qty: 1 on 06/11/2023 by Ryanne Mcelroy MD at [facility] N/A: Abdomen [employer] 12/26/2024 [id number] / / [id number] Procedures Procedure Name Priority Date/Time Associated Diagnosis Comments HEMOGLOBIN A1C - POINT OF CARE (AMB) [facility] Routine 08/20/2023 2:08 PM JANITORIAL TECH Type 2 diabetes mellitus with other specified complication, without long-term current use of insulin MICROALB/CREAT RATIO URINE RANDOM PANEL Routine 03/26/2023 7:17 AM CDT Type 2 diabetes mellitus with other specified complication, without long-term current use of insulin COMPREHENSIVE METABOLIC PANEL Routine 03/26/2023 7:17 AM CDT Type 2 diabetes mellitus with other specified complication, without long-term current use of insulin HEPATITIS C AB W/RFLX TO HCV RNA QN PCR Routine 07/31/2021 11:11 AM JANITORIAL TECH Weight loss, abnormal HIV-1 HIV-2 ANTIBODY + HIV P24 AG PANEL Routine 07/31/2021 11:11 AM JANITORIAL TECH Weight loss, abnormal from Last 3 Months or Most Recently Relevant to Health Maintenance Results * HEMOGLOBIN A1C - POINT OF CARE (AMB) [facility] (08/20/2023 2:08 PM JANITORIAL TECH) Hemoglobin A1c POCT 9.1 % [facility] [address] [facility] Blood BLOOD SPECIMEN / Unknown 08/20/2023 2:08 PM JANITORIAL TECH Edgar Li MD LAB - POINT OF CARE ORDERJulieta REBOLLAR Final Result Performing Organization Address [facility]/ZIP Co de Phone Number PINEDA [address] [facility] [address] [facility], [place] [address], [facility] [phone] * MICROALB/CREAT RATIO URINE RANDOM PANEL (03/26/2023 7:17 AM CDT) Creatinine Urine 105 20 - 320 mg/dL [facility] Microalbumin Urine 0.5 mg/dL [facility] Comment: Reference Range Not established Microalbumin/Creat inine Ratio 5 <30 mcg/mg creat [facility] Comment: The ADA defines abnormalities in albumin excretion as follows: Albuminuria Category Result (mcg/mg creatinine) Normal to Mildly increased <30 Moderately increased 30-299 Severely increased > OR = 300 The ADA recommends that at least two of three specimens collected within a 3-6 month period be abnormal before considering a patient to be within a diagnostic category. Test Performed at: [facility] [id number] [place] [phone] CHARLY GÓMEZ MD Urine URINE SPECIMEN OBTAINED BY CLEAN CATCH PROCEDURE / Unknown 03/26/2023 7:17 AM CDT 03/26/2023 7:19 AM CDT us Edgar Li MD LAB - URINE CHEMISTRY ORDNatalya STRANGE Final Result Performing Organization Address [facility] Co de Phone Number [facility] [address] [place] [address] * (ABNORMAL) COMPREHENSIVE METABOLIC PANEL (03/26/2023 7:17 AM CDT) Glucose 180(H) 65 - 99 mg/dL [facility] Comment: Fasting reference interval For someone without known diabetes, a glucose value >125 mg/dL indicates that they may have diabetes and this should be confirmed with a follow-up test. BUN 15 7 - 25 mg/dL [facility] Creatinine 0.78 0.70 - 1.30 mg/dL [facility] eGFR by Cystatin C 103 > OR = 60 mL/min/1. 73m2 [facility] BUN/Creatinine Ratio SEE NOTE: 6 - 22 (calc) [facility] Comment: Not Reported: BUN and Creatinine are within reference range. Sodium 137 135 - 146 mmol/L [facility] Potassium 3.6 3.5 - 5.3 mmol/L [facility] Chloride 96(L) 98 - 110 mmol/L [facility] CO2 31 20 - 32 mmol/L [facility] Calcium 9.8 8.6 - 10.3 mg/dL [facility] Protein Total 7.3 6.1 - 8.1 g/dL [facility] Albumin 4.5 3.6 - 5.1 g/dL [facility] Globulin Total 2.8 1.9 - 3.7 g/dL (calc) [facility] Albumin/Globulin Ratio 1.6 1.0 - 2.5 (calc) [facility] Bilirubin Total 0.6 0.2 - 1.2 mg/dL [facility] Alkaline Phosphatase 84 35 - 144 U/L [facility] AST 15 10 - 35 U/L [facility] ALT 18 9 - 46 U/L [facility] Comment: Test Performed at: [facility] [address] CHARLY GÓMEZ MD Blood BLOOD SPECIMEN / Unknown 03/26/2023 7:17 AM CDT 03/26/2023 7:19 AM CDT Edgar Li MD LAB - CHEMISTRY ORDERABLES Final Result [address] [address] * HEPATITIS C AB W/RFLX TO HCV RNA QN PCR (07/31/2021 11:11 AM JANITORIAL TECH) Hepatitis C Antibody NON-REACTI VE NON-REACT XIANG [facility] Signal to Cut-Off 0.01 <1.00 [facility] Comment: HCV antibody was non-reactive. There is no laboratory evidence of HCV infection. In most cases, no further action is required. However, if recent HCV exposure is suspected, a test for HCV RNA (test code 74748) is suggested. For additional information please refer to http://education.[employer]/faq/GUW53h5 (This link is being provided for informational/ educational purposes only.) Test Performed at: [facility] [address] [place] [address] JODI WELCH DO,MPH Blood BLOOD SPECIMEN / Unknown 07/31/2021 11:11 AM JANITORIAL TECH 07/31/2021 11:15 AM JANITORIAL TECH Ai Wilkes APRN-[facility] LAB - CHEMISTRY ORDERABLE S Final Result Performing Organization Address [facility] de Phone Number DARYL [address] [place] [address] * HIV-1 HIV-2 ANTIBODY + HIV P24 AG PANEL (07/31/2021 11:11 AM JANITORIAL TECH) HIV Screen 4th Generation w Reflex NON-REACT XIANG NON-REACT XIANG [facility] Comment: HIV-1 antigen and HIV-1/HIV-2 antibodies were not detected. There is no laboratory evidence of HIV infection. PLEASE NOTE: This information has been disclosed to you from records whose confidentiality may be protected by state law. If your state requires such protection, then the state law prohibits you from making any further disclosure of the information without the specific written consent of the person to whom it pertains, or as otherwise permitted by law. A general authorization for the release of medical or other information is NOT sufficient for this purpose. For additional information please refer to http://education.[employer]/faq/ARQ975 (This link is being provided for informational/ educational purposes only.) The performance of this assay has not been clinically validated in patients less than 2 years old. Test Performed at: [facility] [address] [place] [address] JODI WELCH DO,MPH Blood BLOOD SPECIMEN / Unknown 07/31/2021 11:11 AM JANITORIAL TECH 07/31/2021 11:15 AM JANITORIAL TECH Ai Wilkes APRN-TECHNOLOGY PROGRAM MANAGER LAB - CHEMISTRY ORDERABLE S Final Result Performing Organization Address [facility] Co de Phone Number [facility] [address] [place] [address] from Last 3 Months or Most Recently Relevant to Health Maintenance Insurance MEDICAID [employer] [place] [employer] Care Teams Tangled Yarn Worker Relationship Specialty Start Date End Date Edgar Li MD [address] [phone] PCP - General 08/25/20
--- OUTSIDE RECORDS SUMMARY | 2024-10-15 11:24 | XMS_ITS | Clinical Summary ---
Author Organization [facility] Care Team Providers Care Video Tape Editor Name Role Phone Unavailable Primary Care Provider Unavailabl e Social History Tobacco Use Types Packs/Day Years Used Date Smoking Tobacco: Never Assessed Sex and Gender Information Value Date Recorded Sex Assigned at Not on file Legal Sex Male 7:58 AM CONSTRUCTION SECRETARY Gender Identity Not on file Sexual Orientation Not on file Plan of Treatment Health Maintenance Due Date Last Done Comments Hepatitis C Virus (HCV) Screening 1965 TdaP Immunization 1965 Colonoscopy 2009 Colorectal Cancer Screening 2009 Cologuard 2014 Immunochemical Fecal Occult Blood 2014 Pneumococcal Immunization (5 0+ years) (1 of 1 - PCV) 2014 Zoster Immunization (1 of 2) 2014 PSA Discussion 2019 Influenza Immunization (#1) 2024 SARS-COV-2 Immunization ( - season) 2024 Respiratory Syncytial Virus (RSV) Immunization (Adult) (1 - 1-dose 75+ series) 2039 Hepatitis B Immunization Aged Out No longer eligible based on patient's age to complete this topic Meningococcal Immunization (ACWY) Aged Out No longer eligible based on patient's age to complete this topic Pneumococcal Immunization Combined Aged Out No longer eligible based on patient's age to complete this topic Rotavirus Immunization Aged Out No lo nger eligible based on patient's age to complete this topic
--- OUTSIDE RECORDS SUMMARY | 2024-10-15 11:24 | XMS_ITS | Referral Summary ---
Author Organization [facility] [address] [place] [id number] Care Team Providers Care Foundry Tender Name Role Phone Lewis Miranda MD Primary Care Provider Allergies No known active allergies Medications DULoxetine DR (CYMBALTA) 60 mg capsule Take 1 capsule (60 mg total) by mouth daily Active chlorthalidone (HYGROTON) 25 mg tablet Take 1 tablet (25 mg total) by mouth daily Active atorvastatin (LIPITOR) 40 mg tablet Take 1 tablet (40 mg total) by mouth nightly 3 Active gabapentin (NEURONTIN) 300 mg capsule Take 1 capsule (300 mg total) by mouth 3 (three) times a day 3 Active metFORMIN XR (GLUCOPHAGE XR) 500 mg 24 hr tablet Take 2 tablets (1,000 mg total) by mouth 2 (two) times a day Active dulaglutide (TRULICITY) 1.5 mg/0.5 mL pen injectorIndicati ons:type 2 diabetes mellitus Inject 0.5 mL (1.5 mg total) under the skin every 7 days Active buPROPion XL (WELLBUTRIN XL) 150 mg 24 hr tabletIndication s:Moderate episode of recurrent major depressive disorder (HCC) Take 1 tablet (150 mg total) by mouth every morning 90 tablet 3 5 07/10/19 26 Active sildenafiL (VIAGRA) 100 mg tabletIndication s:Vasculogenic erectile dysfunction, unspecified vasculogenic erectile dysfunction type Take 1 tablet (100 mg total) by mouth as needed for erectile dysfunction 30 tablet 5 Active cyanocobalamin (Vitamin B-12) 500 mcg tabletIndication s:Prevention of Vitamin B12 Deficiency Take 1 tablet (500 mcg total) by mouth daily 90 tablet 3 5 07/13/19 26 Active Active Problems Problem Noted Date Diagnosed Date History of umbilical hernia repair 07/13/2024 Assessment & Plan (07/13/2024 10:35 AM VENTILATION MECHANIC): - s/p laparoscopic umbilical hernia repair in 2022 - reports mesh placement - reports intermittent discomfort Hypertension associated with diabetes 07/10/2024 Assessment & Plan (07/13/2024 10:33 AM VENTILATION MECHANIC): Blood Pressure Management BP Readings from Last 3 Encounters: 07/10/24 128/78 Chronic condition Status - is adequately controlled. Current medications are: Chlorthalidone 25 mg daily Patient is compliant with medications. Patient denies any side effects or adverse side effects from the medication/s. Follow a low salt diet Monitor blood pressure regularly at home Continue current management unless change made above The 10-year ASCVD risk score (Kermit ROBLEDO, et al., 2019) is: 19.5% Values used to calculate the score: Age: 59 years Sex: Male Is Non- : No Diabetic: Yes Tobacco smoker: No Systolic Blood Pressure: 128 mmHg Is BP treated: Yes HDL Cholesterol: 52 mg/dL Total Cholesterol: 220 mg/dL Lab Results Component Value Date LDLCALC 144 (H) 07/10/2024 Lab Results Component Value Date GLUCOSE 252 (H) 07/10/2024 CALCIUM 10.3 07/10/2024 SODIUM 139 07/10/2024 POTASSIUM 4.5 07/10/2024 CO2 32 07/10/2024 CHLORIDE 95 (L) 07/10/2024 BUNSER 12 07/10/2024 CREATININE 0.66 (L) 07/10/2024 Dyslipidemia associated with type 2 diabetes mauricio litus 07/10/2024 Assessment & Plan (07/13/2024 10:31 AM VENTILATION MECHANIC): - chronic condition - status: not well controlled. - current management/medications: restart Atorvastatin 40 mg nightly - other comorbid conditions: T2DM, hypertension - patient is compliant with medications. - most recent LDL as shown below - maintain a healthy weight, diet - will monitor closely - continue current management Lab Results Component Value Date LDLCALC 144 (H) 07/10/2024 Lab Results Component Value Date ALT 18 07/10/2024 AST 21 07/10/2024 ALKPHOS 102 07/10/2024 BILITOT 0.5 07/10/2024 Type 2 diabetes mellitus wit h diabetic polyneuropathy, without long-term current use of insulin 07/10/2024 Assessment & Plan (07/13/2024 10:35 AM VENTILATION MECHANIC): - chronic condition, not at goal, poorly controlled - gal A1c <7.0 - has diabetic neuropathy and hyperglycemia - currently on Metformin 1000 BID (States needs to gets better at taking them twice), Trulicity 1.5 mg weekly injection (was out of it and restarted taking it 1 month prior) - check labs, order placed with results as shown below - recommend consistency with medication and will recheck on next visit - need to do diabetic eye exams Lab Results Component Value Date HGBA1C 9.0 (H) 07/10/2024 Lab Results Component Value Date LDLCALC 144 (H) 07/10/2024 CREATININE 0.66 (L) 07/10/2024 Moderate episode of recurrent major depressive d isorder 07/10/2024 Assessment & Plan (07/13/2024 10:31 AM VENTILATION MECHANIC): - chronic condition, worse - has depression, low motivation - currently on Duloxetine DR 60 mg daily - restart Wellbutrin XL 150 mg daily which he used to be on but has been without for some time, script sent in Diabetic polyneuropathy asso ciated with type 2 diabetes mellitus 07/10/2024 Assessment & Plan (07/13/2024 10:32 AM VENTILATION MECHANIC): - chronic condition, not at goal - currently on Gabapentin 300 [address] 60 mg daily - check labs, order placed with results as shown below - hx of alcohol overuse, not at goal - start B12 500 mcg daily - discussed need for better glucemic control Lab Results Component Value Date VITB12 325 07/10/2024 Lab Results Component Value Date FOLATE 11.7 07/10/2024 Alcohol use disorder 07/10/2024 Assessment & Plan (07/13/2024 10:32 AM VENTILATION MECHANIC): - chronic condition, not at goal of being alcohol free - has been to rehab facility for alcohol disorder in the past - currently drinks 2 beers/daily - in the past used to drink more - check labs, order placed with results as shown below - start B12 500 mcg daily - recommend alcohol abstinence Lab Results Component Value Date ALT 18 07/10/2024 AST 21 07/10/2024 ALKPHOS 102 07/10/2024 BILITOT 0.5 07/10/2024 Lab Results Component Value Date VITB12 325 07/10/2024 Lab Results Component Value Date FOLATE 11.7 07/10/2024 Preventative health care 07/10/2024 Assessment & Plan (07/13/2024 10:33 AM VENTILATION MECHANIC): - New or chronic worsening conditions: Dyslipidemia, Depression, Type 2 diabetes, Low vitamin b12 - Mental health: has significant psychiatric/mental health conditions affecting her day to day functioning - Dental health: not up to date, Recommend regular dental care and cleaning. Discussed importance of regular tooth brushing, flossing, and dental visits. - Nutrition: Recommend moderation in sodium/caffeine intake, saturated fat and cholesterol, caloric balance, sufficient intake of fresh fruits, vegetables - Exercise: Recommend to exercise at least 30 minutes moderate to vigorous exercise most days of the week. (minimum 150 minutes weekly) - Immunizations: Age and sex appropriate immunizations reviewed and offered - Prostate cancer screening: Recommended, order placed - Colon cancer screening: Recommended, order placed - Lung cancer screening: not indicated No results found for: PSA Vasculogenic erectile dysfunction 07/10/2024 Assessment & Plan (07/13/2024 10:30 AM VENTILATION MECHANIC): - chronic condition, not at goal. Persisting difficulty with erection maintenance - increase Sildenafil from 50 mg to 100 mg for use prior to sexual intercourse - discussed warning signs, if prolonged erection over 4 hrs need to go to the Emergency department - no nitrate medications that he is on Encounter for screening colonoscopy 07/10/2024 Immunizations Immunization Administration Dates Next Due Hep B Vaccine 08/20/2023 Influenza, Quadrivalent, Spl it, Preservative Free, Intramuscular 07/02/2023 Influenza, Trivalent, IM (MDV) 04/02/2014,2013 Influenza, Trivalent, Preser vative Free, Intramuscular 07/04/2017 Influenza, Unspecified 07/10/2024(Deferred: Sharyn ent Refused) Pneumococcal Polysaccharide PPV23 07/25/2021 Tdap 07/25/2021,12/06/2009,11/08/2009 ZOSTER Recombinant 08/20/2023,07/25/2021 Social History Tobacco Use Types Packs/Day Years Used Date Smoking Tobacco: Never Smokeless Tobacco: Never Tobacco Cessation:Counseling Given: Not Answered Sex and Gender Information Value Date Recorded Sex Assigned at Not on file Legal Sex Male 11:26 AM VENTILATION MECHANIC Gender Identity Not on file Sexual Orientation Not on file Last Filed Vital Signs Vital Sign Reading Time Taken Comments Blood Pressure 128/78 07/10/2024 10:27 AM VENTILATION MECHANIC Pulse 92 07/10/2024 10:27 AM VENTILATION MECHANIC Temperature 36.7 C (98.1 F) 07/10/2024 10:27 AM VENTILATION MECHANIC Respiratory Rate - - Oxygen Saturation 98% 07/10/2024 10: 27 AM VENTILATION MECHANIC Inhaled Oxygen Concentration - - Weight 112.1 kg (247 lb 3.2 oz) 025 10:27 AM VENTILATION MECHANIC Height 188 cm (6' 2 ) 07/10/2024 10:27 AM VENTILATION MECHANIC Body Mass Index 31.74 07/10/2024 10:27 AM VENTILATION MECHANIC Plan of Treatment Upcoming Encounters Date Type Department Care Team (Late st Contact Info) Description 02/04/2025 10:00 AM CDT Hospital Encounter [address] [address] Vidal Estrada DO [address] [facility] [place] [address] 02/04/2025 10:00 AM CDT - 02/04/2025 10:30 AM CDT Surgery [address] [address] Vidal Estrada DO [address] [facility] [place] [address] COLONOSCOPY Scheduled Procedures Name Priority Associated Diagnoses Date/Ti me COLONOSCOPY Encounter for screening colonoscopy 02/04/2025 10:00 AM CDT Procedures Procedure Name Priority Date/Time Associated Diagnosis Comments HEPATITIS C ANTIBODY Routine 07/10/2024 11:24 AM VENTILATION MECHANIC Encounter for hepatitis C screening test for low risk patient EGFR Routine 07/10/2024 11:24 AM VENTILATION MECHANIC Dyslipidemia associated with type 2 diabetes mellitus (HCC) Type 2 diabetes mellitus with diabetic polyneuropathy, without long-term current use of insulin (HCC) Alcohol use disorder HEMOGLOBIN A1C Routine 07/10/2024 11:24 AM VENTILATION MECHANIC Type 2 diabetes mellitus with diabetic polyneuropathy, without long-term current use of insulin (HCC) LIPID PANEL Routine 07/10/2024 11:24 AM VENTILATION MECHANIC Dyslipidemia associated with type 2 diabetes mellitus (HCC) Type 2 diabetes mellitus with diabetic polyneuropathy, without long-term current use of insulin (HCC) ALBUMIN CREATININE RATIO, URINE Routine 07/10/2024 11:24 AM VENTILATION MECHANIC Type 2 diabetes mellitus with diabetic polyneuropathy, without long-term current use of insulin (HCC) PSA SCREEN Routine 07/10/2024 11:24 AM VENTILATION MECHANIC Prostate cancer screening from Last 3 Months or Most Recently Relevant to Health Maintenance Results * eGFR (07/10/2024 11:24 AM VENTILATION MECHANIC) eGFR >90 >=60 mL/min/1. 73 m2 Comment: Interpretive Data Reference Interval Normal >/= 90 mL/min/1.73m2 Mildly decreased* 60 - 89 mL/min/1.73m2 Mildly to moderately decreased 45 - 59 mL/min/1.73m2 Moderately to severely decreased 30 - 44 mL/min/1.73m2 Severely decreased 15 - 29 mL/min/1.73m2 Kidney Failure < 15 mL/min/1.73m2 *Relative to young adult level Estimated glomerular filtration rate is determined by the 2020 CKD-EPI equation recommended by the National Kidney Foundation (A Unifying Approach to GFR Estimation: Recommendations of the NKF-ASK Task Force on Reassessing the Inclusion of Race in Diagnosing Kidney Disease, JASN 2020). The CKD-EPI equation should not be used for patients with unstable renal function and has not been validated in children and those over 70. Current interpretive data was last reviewed 2021. Blood 07/10/2024 11:2 4 AM VENTILATION MECHANIC 07/10/2024 2:34 PM VENTILATION MECHANIC Lewis Miranda MD LAB BLOOD ORDERABLES nal Result Performing Organization Address [facility] de Phone Number [facility] [place] [address] [address] [place] [address] * PSA screen (07/10/2024 11:24 AM VENTILATION MECHANIC) PSA-Total 0.56 <=5.40 ng/mL Comment: Interpretive Data AGE SEX REFERENCE INTERVAL 0 minutes-150 years Female None 0 minutes-49 years Male None 50-59 years Male 0-3.90 60-69 years Male 0-5.40 70-79 years Male 0-6.20 80-150 years Male 0-6.20 The Srinivasa PSA Total assay procedure was used. Results from different manufacturers or methods may not be comparable. Serial testing should be performed using the same method. Current interpretive data last revised 21. Blood 07/10/2024 11:2 4 AM VENTILATION MECHANIC 07/10/2024 2:17 PM VENTILATION MECHANIC Lewis Miranda MD LAB BLOOD ORDERABLES [facility] Result Performing Organization Address [facility] de Phone [place] [address] [place] [address] * Hepatitis C antibody Blood (07/10/2024 11:24 AM VENTILATION MECHANIC) Hep C Ab Nonreactive Nonreactive Comment: Interpretive Data Nonreactive: Antibodies to HCV not detected. Does NOT exclude the possibility of recent exposure to HCV. Equivocal: Equivocal for HCV antibodies. Supplemental molecular testing will be automatically performed to determine infection status in accordance with current CDC screening recommendations. Reactive: Positive for HCV antibodies. This may represent current or past HCV infection. Supplemental molecular testing will be automatically performed to determine current infection status in accordance with current CDC screening recommendations. Interpretive data was last revised on 2019. Blood 07/10/2024 11:2 4 AM VENTILATION MECHANIC 07/10/2024 2:17 PM VENTILATION MECHANIC Lewis Miranda MD LAB MICROBIOLOGY - GENE RAL ORDERABLES Final Result Performing Organization Address [facility] de Phone Number [facility] [address] [place] [address] * Albumin Creatinine Ratio, Urine (07/10/2024 11:24 AM VENTILATION MECHANIC) Albumin Ur 16.5 mg/L Comment: Interpretive Data No reference range established. Current interpretive data was last revised 2018. Creatinine Ur 129.0 mg/dL [facility] Comment: Interpretive Data No reference range established. Current interpretive data was last revised 2018. Albumin Creatinine Ratio, Ur 13 1 - 29 mg/g [facility] Urine 07/10/2024 11:2 4 AM VENTILATION MECHANIC 07/10/2024 2:17 PM VENTILATION MECHANIC Lewis Miranda MD LAB URINE ORDERABLES Fi nal Result Performing Organization Address [facility] Phone Number [facility] [address] [address] [facility] [place] [address] * (ABNORMAL) Hemoglobin A1c (07/10/2024 11:24 AM VENTILATION MECHANIC) Hgb A1C 9.0(H) 4.0 - 5.6 % Estimated Average Glucose 212 mg/dL [facility] Comment: The ADA recommends reporting an estimated Average Glucose (eAG) with all Hemoglobin A1c results using the equation derived from a study of 507 normal and diabetic adults. Minority populations were underrepresented and children were not included. (Diabetes Care 31:3738-8211, 2008). The eAG is not equivalent to a fasting glucose. Blood 07/10/2024 11:2 4 AM VENTILATION MECHANIC 07/10/2024 2:17 PM VENTILATION MECHANIC us Lewis Miranda MD LAB BLOOD ORDERABLES Fi nal Result [facility] [id number] [facility] [place] [address] * (ABNORMAL) Lipid panel (07/10/2024 11:24 AM VENTILATION MECHANIC) Cholesterol 220(H) 30 - 199 mg/dL Comment: Interpretive Data Ages < or = 19 years Acceptable: <170 mg/dL Borderline high: 170-199 mg/dL High: >or= 200 mg/dL Ages > or = 20 years Desirable: <200 mg/dL Borderline high: 200-239 mg/dL High: >or= 240 mg/dL Literature References: 1. Expert Panel on Integrated Guidelines for Cardiovascular Health and Risk Reduction in Children and Adolescents. Pediatrics 2011;128:S213 2. NCEP Expert Panel. Circulation 2004;110:227 Current Interpretive Data was last revised on 2018. Triglycerides 134 <=149 mg/dL [facility] Comment: Interpretive Data Ages < or = 9 years Acceptable: <75 mg/dL Borderline high: 75-99 mg/dL High: >or= 100 mg/dL Ages 10 to 20 years Acceptable: <90 mg/dL Borderline high: 90-129 mg/dL High: >or= 130 mg/dL Ages > or = 20 years Desirable: <150 mg/dL Borderline high: 150-199 mg/dL High: 200-499 mg/dL Very high: >or= 499 mg/dL Literature References: 1. Expert Panel on Integrated Guidelines for Cardiovascular Health and Risk Reduction in Children and Adolescents. Pediatrics 2011;128:S213 2. NCEP Expert Panel. Circulation 2004;110:227 Current Interpretive Data was last revised on 2018. HDL 52 >=40 mg/dL [facility] Comment: Interpretive Data Ages < or = 19 years Acceptable: >45 mg/dL Borderline low: 40-45 mg/dL Low: <40 mg/dL Ages > or = 20 years Desirable: >or= 60 mg/dL Low: <40 mg/dL Literature References: 1. Expert Panel on Integrated Guidelines for Cardiovascular Health and Risk Reduction in Children and Adolescents. Pediatrics 2011;128:S213 2. NCEP Expert Panel. Circulation 2004;110:227 Current Interpretive Data was last revised on 2018. LDL, calculated 144(H) <=129 mg/dL [facility] Comment: Interpretive Data Ages < or = 19 years Acceptable: <110 mg/dL Borderline high: 110-129 mg/dL High: >or= 130 mg/dL Ages > or = 20 years Optimal: <100 mg/dL Near optimal: 100-129 mg/dL Borderline high: 130-159 mg/dL High: >160 mg/dL Calculated using the Nithin LDL-C estimating equation. This equation was implemented on 2024. Prior to this date LDL-C was estimated using the Friedewald equation. Literature References: 1. Expert Panel on Integrated Guidelines for Cardiovascular Health and Risk Reduction in Children and Adolescents. Pediatrics 2011;128:S213 2. NCEP Expert Panel. Circulation 2004;110:227 3. Nithin Peterson et al. THOMAS Cardiol. 2019October 29;5(5):540-548. doi: 10.1001/[email or web address].2020.0013 Current Interpretive Data was last revised on 2024. Non-HDL Cholesterol 168 mg/dL [facility] Comment: Interpretive Data Ages < or = 19 years Acceptable: <120 mg/dL Borderline high: 120-144 mg/dL High: >145 mg/dL Ages > or = 20 years When triglycerides are >200 mg/dL, Non-HDL cholesterol is a secondary target of therapy with treatment goals that are 30 mg/dL greater than the LDL cholesterol target. Literature References: 1. Expert Panel on Integrated Guidelines for Cardiovascular Health and Risk Reduction in Children and Adolescents. Pediatrics 2011;128:S213 2. NCEP Expert Panel. Circulation 2004;110:227 Current Interpretive Data was last revised on 2018. Chol/HDL ratio 4 [facility] Blood 07/10/2024 11:2 4 AM VENTILATION MECHANIC 07/10/2024 2:17 PM VENTILATION MECHANIC Narrative [facility] - 07/10/2024 3:13 PM VENTILATION MECHANIC Has the patient been fasting for 8 hours or more?->No us Lewis Miranda MD LAB BLOOD ORDERABLES Fi nal Result [facility] [id number] Department of Laboratories [place], [place] [id number] from Last 3 Months or Most Recently Relevant to Health Maintenance Insurance [employer] [facility] Care Teams Foundry Tender Relationship Specialty Start Date End Date Lewis Miranda MD [address] [facility] [address] JONES A [address] [address] PCP - General Family Medicine 07/10/24
--- OUTSIDE RECORDS SUMMARY | 2024-10-15 11:24 | XMS_ITS | Clinical Summary ---
Author Organization [facility] [address] Address [address] [place] [id number] Care Team Providers Care Bridge Instructor Name Role Phone Lewis Miranda MD Primary [...] 07/13/2024 Assessment & Plan (07/13/2024 10:35 AM FOSTER CARE SOCIAL WORKER): - s/p laparoscopic umbilical hernia repair in 2022 - reports mesh placement - reports intermittent discomfort Hypertension associated with diabetes 07/10/2024 Assessment & Plan (07/13/2024 10:33 AM FOSTER CARE SOCIAL WORKER): Blood Pressure Management BP Readings from Last [...] 07/10/2024 Assessment & Plan (07/13/2024 10:31 AM FOSTER CARE SOCIAL WORKER): - chronic condition - status: not well [...] 07/10/2024 Assessment & Plan (07/13/2024 10:35 AM FOSTER CARE SOCIAL WORKER): - chronic condition, not at goal, poorly [...] 07/10/2024 Assessment & Plan (07/13/2024 10:31 AM FOSTER CARE SOCIAL WORKER): - chronic condition, worse - has depression, low motivation - currently on Duloxetine DR 60 mg daily - restart Wellbutrin XL 150 mg daily which he used to be on but has been without for some time, script sent in Diabetic polyneuropathy asso ciated with type 2 diabetes mellitus 07/10/2024 Assessment & Plan (07/13/2024 10:32 AM FOSTER CARE SOCIAL WORKER): - chronic condition, not at goal - [...] 07/10/2024 Assessment & Plan (07/13/2024 10:32 AM FOSTER CARE SOCIAL WORKER): - chronic condition, not at goal of [...] 07/10/2024 Assessment & Plan (07/13/2024 10:33 AM FOSTER CARE SOCIAL WORKER): - New or chronic worsening conditions: Dyslipidemia, [...] 07/10/2024 Assessment & Plan (07/13/2024 10:30 AM FOSTER CARE SOCIAL WORKER): - chronic condition, not at goal. Persisting [...] on file Legal Sex Male 11:26 AM FOSTER CARE SOCIAL WORKER Gender Identity Not on file Sexual Orientation Not on file Obstetrics History Last Filed Vital Signs Vital Sign Reading Time Taken Comments Blood Pressure 128/78 07/10/2024 10:27 AM FOSTER CARE SOCIAL WORKER Pulse 92 07/10/2024 10:27 AM FOSTER CARE SOCIAL WORKER Temperature 36.7 C (98.1 F) 07/10/2024 10:27 AM FOSTER CARE SOCIAL WORKER Respiratory Rate - - Oxygen Saturation 98% 07/10/2024 10: 27 AM FOSTER CARE SOCIAL WORKER Inhaled Oxygen Concentration - - Weight 112.1 kg (247 lb 3.2 oz) 025 10:27 AM FOSTER CARE SOCIAL WORKER Height 188 cm (6' 2 ) 07/10/2024 10:27 AM FOSTER CARE SOCIAL WORKER Body Mass Index 31.74 07/10/2024 10:27 AM FOSTER CARE SOCIAL WORKER Plan of Treatment Upcoming Encounters Date Type Department Care Team (Late st Contact Info) Description 02/04/2025 10:00 AM CDT Hospital Encounter [address] [address] Vidal Estrada DO [address] [place] [address] 02/04/2025 10:00 AM CDT - 02/04/2025 10:30 AM CDT Surgery [address] [address] Vidal Estrada DO [address] [place] [address] COLONOSCOPY Scheduled Procedures Name Priority Associated Diagnoses Date/Ti me COLONOSCOPY Encounter for screening colonoscopy 02/04/2025 10:00 AM CDT Health Maintenance Due Date Last Done Comments Colon Cancer Screening-Colonoscopy 1965 Depression Screening 1965 Dilated Eye Exam 1965 Foot Exam 1965 Pneumococcal vaccine <65 (2 of 2 - PCV) 07/25/2022 07/25/2021 Covid-19 Vaccine (2 - season) 2024 06/21/2021 Influenza Vaccine (#1) 2024 , 07/04/2017, 04/02/2014, Additional history exists Postponed from 03/01/2024 (Patient declined, but will receive in the future) Hemoglobin A1C 01/07/2025 07/10/2024, 03/02, 07/31/2021 Albumin Creatinine Ratio, Urine 07/10/2025 07/10/2024 Lipid Panel 07/10/2025 07/10/2024 Regular Well Visit/Exam 18-64 07/10/2025 07/10/2024 eGFR 07/10/2025 07/10/2024 Prostate Cancer Screening-PSA 07/10/2026 07/10/2024 DTaP/Tdap/Td Vaccine (4 - Td or Tdap) 07/25/2031 07/25/2021, 12/06/2009, 11/08/2009 Hepatitis B Screening Completed 08/20/2023 Zoster Vaccine Completed 08/20/2023, 07/25/2021 Hepatitis C Screening Completed 07/10/2024 Procedures Procedure Name Priority Date/Time Associated Diagnosis Comments HEPATITIS C ANTIBODY Routine 07/10/2024 11:24 AM FOSTER CARE SOCIAL WORKER Encounter for hepatitis C screening test for low risk patient EGFR Routine 07/10/2024 11:24 AM FOSTER CARE SOCIAL WORKER Dyslipidemia associated with type 2 diabetes mellitus (HCC) Type 2 diabetes mellitus with diabetic polyneuropathy, without long-term current use of insulin (HCC) Alcohol use disorder HEMOGLOBIN A1C Routine 07/10/2024 11:24 AM FOSTER CARE SOCIAL WORKER Type 2 diabetes mellitus with diabetic polyneuropathy, without long-term current use of insulin (HCC) LIPID PANEL Routine 07/10/2024 11:24 AM FOSTER CARE SOCIAL WORKER Dyslipidemia associated with type 2 diabetes mellitus (HCC) Type 2 diabetes mellitus with diabetic polyneuropathy, without long-term current use of insulin (HCC) ALBUMIN CREATININE RATIO, URINE Routine 07/10/2024 11:24 AM FOSTER CARE SOCIAL WORKER Type 2 diabetes mellitus with diabetic polyneuropathy, without long-term current use of insulin (HCC) PSA SCREEN Routine 07/10/2024 11:24 AM FOSTER CARE SOCIAL WORKER Prostate cancer screening from Last 3 Months or Most Recently Relevant to Health Maintenance Results * eGFR (07/10/2024 11:24 AM FOSTER CARE SOCIAL WORKER) eGFR >90 >=60 mL/min/1. 73 m2 Comment: [...] of Race in Diagnosing Kidney Disease, JASN 202). The CKD-EPI equation should not be used for patients with unstable renal function and has not been validated in children and those over 70. Current interpretive data was last reviewed 2021. Blood 07/10/2024 11:2 4 AM FOSTER CARE SOCIAL WORKER 07/10/2024 2:34 PM FOSTER CARE SOCIAL WORKER us Lewis Miranda MD LAB BLOOD ORDERABLES Fi nal Result RORY HANDY [address] [address] Department of Laboratories [place], [place] [id number] * PSA screen (07/10/2024 11:24 AM FOSTER CARE SOCIAL WORKER) PSA-Total 0.56 <=5.40 ng/mL Comment: Interpretive Data [...] revised 21. Blood 07/10/2024 11:2 4 AM FOSTER CARE SOCIAL WORKER 07/10/2024 2:17 PM FOSTER CARE SOCIAL WORKER Lewis Miranda MD LAB BLOOD ORDERABLES Fi nal Result Performing Organization Address [facility] de Phone Number R[facility] HANDY [address] [place] [address] * Hepatitis C antibody Blood (07/10/2024 11:24 AM FOSTER CARE SOCIAL WORKER) [facility] Hep C Ab Nonreactive Nonreactive Comment: Interpretive [...] on 2019. Blood 07/10/2024 11:2 4 AM FOSTER CARE SOCIAL WORKER 07/10/2024 2:17 PM FOSTER CARE SOCIAL WORKER Lewis Miranda MD LAB MICROBIOLOGY - GENE RAL ORDERABLES Final Result Performing Organization Address [facility] [place] [address] [address] [place], [place] [id number] * Albumin Creatinine Ratio, Urine (07/10/2024 11:24 AM FOSTER CARE SOCIAL WORKER) [facility] Albumin Ur 16.5 mg/L Comment: Interpretive Data No reference range established. Current interpretive data was last revised 2018. Creatinine Ur 129.0 mg/dL [facility] Comment: Interpretive Data No reference range established. Current interpretive data was last revised 2018. Albumin Creatinine Ratio, Ur 13 1 - 29 mg/g [facility] Urine 07/10/2024 11:2 4 AM FOSTER CARE SOCIAL WORKER 07/10/2024 2:17 PM FOSTER CARE SOCIAL WORKER Lewis Miranda MD LAB URINE ORDERABLES Fi nal Result Performing Organization Address [facility] de Phone Number [facility] [address] [address] [employer] [place], [place] [id number] * (ABNORMAL) Hemoglobin A1c (07/10/2024 11:24 AM FOSTER CARE SOCIAL WORKER) Hgb A1C 9.0(H) 4.0 - 5.6 % Estimated Average Glucose 212 mg/dL [facility] Comment: The ADA recommends reporting an estimated Average Glucose (eAG) with all Hemoglobin A1c results using the equation derived from a study of 507 normal and diabetic adults. Minority populations were underrepresented and children were not included. (Diabetes Care 31:4910-2684, 2008). The eAG is not equivalent to a fasting glucose. Blood 07/10/2024 11:2 4 AM FOSTER CARE SOCIAL WORKER 07/10/2024 2:17 PM FOSTER CARE SOCIAL WORKER Lewis Miranda MD LAB BLOOD ORDERABLES Fi nal Result Performing Organization Address [facility] de Phone Number [facility] [address] [address] [place] [address] * (ABNORMAL) Lipid panel (07/10/2024 11:24 AM FOSTER CARE SOCIAL WORKER) Cholesterol 220(H) 30 - 199 mg/dL Comment: [...] on 2018. Triglycerides 134 <=149 mg/dL [facility] Comment: Interpretive Data Ages < or = [...] on 2018. HDL 52 >=40 mg/dL [facility] Comment: Interpretive Data Ages < or = [...] 2018. LDL, calculated 144(H) <=129 mg/dL [facility] Comment: Interpretive Data Ages < or = 19 years Acceptable: <110 mg/dL Borderline high: 110-129 mg/dL High: >or= 130 mg/dL Ages > or = 20 years Optimal: <100 mg/dL Near optimal: 100-129 mg/dL Borderline high: 130-159 mg/dL High: >160 mg/dL Calculated using the Weller LDL-C estimating equation. This equation was implemented on 2024. Prior to this date LDL-C was estimated using the Friedewald equation. Literature References: 1. Expert Panel on Integrated Guidelines for Cardiovascular Health and Risk Reduction in Children and Adolescents. Pediatrics 2011;128:S213 2. NCEP Expert Panel. Circulation 2004;110:227 3. Weller M et al. THOMAS Cardiol. 2020 October 29;5(5):540-548. doi: 10.1001/jamacardio.2020.0013 Current Interpretive Data was last revised on 2024. Non-HDL Cholesterol 168 mg/dL [facility] Comment: Interpretive Data Ages < or = [...] revised on 2018. Chol/HDL ratio 4 [facility] Blood 07/10/2024 11:2 4 AM FOSTER CARE SOCIAL WORKER 07/10/2024 2:17 PM FOSTER CARE SOCIAL WORKER [facility]ative [facility] 07/10/2024 3:13 PM FOSTER CARE SOCIAL WORKER Has the patient been fasting for 8 hours or more?->No Lewis Miranda MD LAB BLOOD ORDERABLES Fi nal Result RORY [address] [address] Department of Laboratories [place], [place] [phone] from Last 3 Months or Most Recently Relevant to Health Maintenance Insurance [facility] Care Teams Bridge Instructor Relationship Specialty Start Date End Date Lewis Miranda MD [address] JONES A [address] [address] PCP - General Family Medicine 07/10/24
--- OUTSIDE RECORDS SUMMARY | 2024-10-15 11:24 | XMS_ITS | Clinical Summary ---
Author Organization [facility] Address [address] [place] [address] Care Team Providers Care Furniture Salesperson Name Role Phone Edgar Li MD Primary Care Provider [phone] Allergies No known active allergies Social History Tobacco Use Types Packs/Day Years Used Date Smoking Tobacco: Never Smokeless Tobacco: Current Chew Alcohol Use Standard Drinks/Week Comments Yes 0 (1 standard drink = 0.6 oz pur e alcohol) 4 beers a day Sex and Gender Information Value Date Recorded Sex Assigned at Not on file Legal Sex Male 3:09 PM SCREENER PERFUMER Gender Identity Not on file Sexual Orientation Not on file Last Filed Vital Signs Vital Sign Reading Time Taken Comments Blood Pressure 148/100 05/15/2021 6:30 PM SCREENER PERFUMER Pulse 101 05/15/2021 6:30 PM SCREENER PERFUMER Temperature 36 C (96.8 F) 05/15/2021 3:34 PM SCREENER PERFUMER Respiratory Rate 18 05/15/2021 6:30 PM SCREENER PERFUMER Oxygen Saturation 98% 05/15/2021 6:30 PM SCREENER PERFUMER Inhaled Oxygen Concentration - - Weight 114.5 kg (252 lb 6.8 oz) 05/15/2021 3:34 PM SCREENER PERFUMER Height 188 cm (6' 2 ) 05/15/2021 3:34 PM SCREENER PERFUMER Body Mass Index 32.41 05/15/2021 3:34 PM SCREENER PERFUMER Plan of Treatment Health Maintenance Due Date Last Done Comments Colorectal Cancer Screening Colonoscopy (10 Years) 1964 Annual Physical 1967 Hepatitis C 1982 Zoster Vaccines (1 of 2) 2014 DTaP, Tdap and Td Vaccines ( 2 - Td or Tdap) 11/09/2019 11/08/2009 COVID-19 Vaccine (2023-2 5 season) 2024 RSV Immunization or 60+ Years (1 - 1-dose 75+ series) 2039 Meningococcal B Vaccine Aged Out No l onger eligible based on patient's age to complete this topic Meningococcal Vaccine Aged Out No naahi reba eligible based on patient's age to complete this topic Pneumococcal Vaccine: Pediat rics (0 to 5 Years) and At-Risk Patients (6 to 49 Years) Aged Out No longer eligi ble based on patient's age to complete this topic RSV Immunizations Under 20 Months Aged Out No longer eligible based on patient's age to complete this topic Insurance MEDICAID [facility] Care Teams Furniture Salesperson Relationship Specialty Start Date End Date Edgar Li MD [address] [place] [id number] PCP - General FAMILY PRACTICE 05/15/21
--- NOTE | 2024-10-15 12:37 | ED_ITS ---
HPI - Extremity Injury (Upper) General Chief Complaint: Extremity Injury, Upper Stated Complaint: left bicep pain Time Seen by Provider: 10/15/24 12:22 History of Present Illness HPI narrative: 59-year-old male with history of ETOH abuse, ILYA, depression, type 2 diabetes, hypertension presents to emergency department for left biceps pain. Patient states 2 days ago he was taking apart a large Pallet when he was pulling on a large 2 x 4, the 2 x 4 snapped and caused him to fall backwards. He did hit his head but did not lose consciousness. He is not anticoagulated. Since the injury he has been having pain to his left shoulder, left humerus and left biceps with a obvious deformity to his left bicep. 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 He denies neck pain, back pain, other injuries acquired. Related Data Home Medications ?Medication ?Instructions ?Recorded ?Confirmed ?Last Taken ?Type bupropion HCl 150 mg tablet,12 hr 150 mg PO BID 01/23/20 01/23/20 Unknown History sustained-release diclofenac sodium 75 mg 75 mg PO BID 01/23/20 01/23/20 Unknown History tablet,delayed release gabapentin 300 mg capsule 300 mg PO TID 01/23/20 01/23/20 Unknown History metformin 500 mg tablet 500 mg PO BID 01/23/20 01/23/20 Unknown History metoprolol succinate 200 mg 200 mg PO DAILY 01/23/20 01/23/20 Unknown History tablet,extended release 24 hr sertraline 100 mg tablet 100 mg PO DAILY 01/23/20 01/23/20 Unknown History Allergies Allergy/AdvReac Type Severity Reaction Status Date / Time No Known Allergies Allergy Unverified 01/22/20 16:48 Review of Systems Review of Systems: All systems reviewed & are unremarkable except as noted in HPI and below PMFSH Past Medical History Medical History Alcoholism Obstructive sleep apnea intolerant to CPAP therapy Depression Type 2 diabetes mellitus Chronic lower back pain Essential hypertension Surgical History Surgical History History of hand surgery right hand surgery x5 due to trauma Family History Family History Sibling , brother 01/20/2020 At 60 years of age Lung cancer Heart attack Social History Social History Social History: Primary care provider: Sloan Peng the patient has 3 adult children who reportedly healthy. Smoking status: Former smoker Smokeless tobacco user: chewing tobacco Additional smoking assessment comments: 1 can of chewing tobacco daily since age 21. Alcohol intake: current Drinks per week: 126 Alcohol use details: Patient drinks about 18 pack a day. He has drank heavily since was 19 years old. Substance use: former Substance use type: marijuana Additional living arrangements comments: The patient lives with girlfriend for the last 8 years. He has a difficultrelationship with his ex-. 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 Gender identity (if verbalized by the patient): Male Spiritual care concerns: No Exam Narrative: GENERAL: Well-appearing, well-nourished, and in no acute distress. Smells of ETOH HEAD: Normocephalic, atraumatic. EYES: EOMI. ENT: Nares clear, no rhinorrhea or epistaxis. Mucous membranes moist. NECK: No midline cervical spinous tenderness, crepitus, step-offs or deformities BACK: No midline thoracolumbar spinous tenderness, crepitus, step-offs or deformities CHEST: Clear to auscultation. No respiratory distress. HEART: Regular rate and rhythm. No murmur heard. Normal peripheral pulses. ABDOMEN: Soft, nontender, nondistended, normal active bowel sounds. EXTREMITIES: LUE: Diffuse tenderness to the left proximal humerus with no obvious deformity and full range of motion. Salty deformity to the left biceps with tenderness to the left bicep. Strength 5/5 in LUE. Radial pulse 2 +. Sensation intact. Radial, median and ulnar nerves are intact. SKIN: Warm, dry, no rash. NEURO: No focal deficits. Alert and oriented x4. Moving all extremities spontaneously Course Vital Signs Vital signs: Vital Signs Temperature 97.6 F 10/15/24 10:49 Pulse Rate 98 10/15/24 10:49 Respiratory Rate 17 10/15/24 10:49 Blood Pressure 133/78 10/15/24 10:49 Pulse Oximetry 97 10/15/24 10:49 Oxygen Delivery Room Air 10/15/24 10:49 Temperature 97.6 F 10/15/24 10:49 Pulse Rate 98 10/15/24 10:49 Respiratory Rate 17 10/15/24 10:49 Blood Pressure 133/78 10/15/24 10:49 Pulse Oximetry 97 10/15/24 10:49 Oxygen Delivery Room Air 10/15/24 10:49 MDM - Extremity Injury (Upper) MDM Narrative Medical decision making narrative: 59-year-old male presents to the emergency department for left shoulder and b iceps pain after a mechanical ground level fall that occurred 2 days ago. Patient hit his head but did not lose consciousness. Triage vitals are stable. Exam is notable for a Salty deformity to the left bicep. He is neurovascularly intact. Additionally patient does smell of EtOH although states he did not have any alcohol today. CT brain shows no acute intracranial process. X-ray of the left elbow, shoulder and humerus show no acute osseous findings. Patient updated on results. Was monitored in the ED for 3 hours and is clinically sober. He is ambulatory in the ED with a steady gait. I offered a sling to immobilize the biceps, however patient politely declined. Will provide follow-up with orthopedist due to concern for injury to the biceps tendon. Discussed strict ED return precautions. He is agreeable with the plan verbalized understanding. Discharged in stable condition. Discharge Plan Discharge Clinical Impression: Strain of left biceps tendon, Closed head injury Patient Disposition: Home Condition: Stable Instructions: Antibiotic Form, Head Injury (DC) Additional Instructions: Please follow-up with orthopedic surgeon. Take Tylenol as needed for pain as directed on the bottle. Return to the emergency department if you develop vision changes focal numbness or weakness or other concerning symptoms. Patient Language: Croatian Prescriptions: No Action metformin 500 mg tablet 500 mg PO BID bupropion HCl 150 mg tablet sustained-release 12 hr 150 mg PO BID metoprolol succinate 200 mg tablet extended release 24 hr 200 mg PO DAILY sertraline 100 mg tablet 100 mg PO DAILY gabapentin 300 mg capsule 300 mg PO TID diclofenac sodium 75 mg tablet,delayed release (DR/EC) 75 mg PO BID thiamine HCl (vitamin B1) [Vitamin B-1] 100 mg Tablet 100 mg PO QAM Qty: 30 0RF potassium chloride 20 mEq Packet 40 meq PO DAILY Qty: 10 0RF chlordiazepoxide HCl 25 mg Capsule 25 mg PO Q6HR Qty: 20 0RF albuterol sulfate [ProAir HFA] 90 mcg/actuation HFA aerosol inhaler 1 inhalation INHALATION QID PRN (Reason: shortness of breath or wheezing) Qty: 6.7 0RF Follow-up/Referrals: PHYSICIAN NOT ON STAFF,NONSTAFF [Non-Staff] - Ethan Rhoades MD [Physician] -
--- OUTSIDE RECORDS SUMMARY | 2024-10-15 13:23 | XMS_ITS | Clinical Summary ---
Author Organization [facility] Address [address] [place] [address] Care Team Providers Care Occupational Analyst Name Role Phone Edgar Li MD Primary Care Provider [phone] Allergies No known active allergies Social History Tobacco Use Types Packs/Day Years Used Date Smoking Tobacco: Never Smokeless Tobacco: Current Chew Alcohol Use Standard Drinks/Week Comments Yes 0 (1 standard drink = 0.6 oz pur e alcohol) 4 beers a day Sex and Gender Information Value Date Recorded Sex Assigned at Not on file Legal Sex Male 3:09 PM MARKETING PROJECT LEAD Gender Identity Not on file Sexual Orientation Not on file Last Filed Vital Signs Vital Sign Reading Time Taken Comments Blood Pressure 148/100 05/15/2021 6:30 PM MARKETING PROJECT LEAD Pulse 101 05/15/2021 6:30 PM MARKETING PROJECT LEAD Temperature 36 C (96.8 F) 05/15/2021 3:34 PM MARKETING PROJECT LEAD Respiratory Rate 18 05/15/2021 6:30 PM MARKETING PROJECT LEAD Oxygen Saturation 98% 05/15/2021 6:30 PM MARKETING PROJECT LEAD Inhaled Oxygen Concentration - - Weight 114.5 kg (252 lb 6.8 oz) 05/15/2021 3:34 PM MARKETING PROJECT LEAD Height 188 cm (6' 2 ) 05/15/2021 3:34 PM MARKETING PROJECT LEAD Body Mass Index 32.41 05/15/2021 3:34 PM MARKETING PROJECT LEAD Plan of Treatment Health Maintenance Due Date [...] this topic Meningococcal Vaccine Aged Out No anahi reba eligible based on patient's age to complete this topic Pneumococcal Vaccine: Pediat rics (0 to 5 Years) and At-Risk Patients (6 to 49 Years) Aged Out No longer eligi ble based on patient's age to complete this topic RSV Immunizations Under 20 Months Aged Out No longer eligible based on patient's age to complete this topic Insurance MEDICAID [facility] Care Teams Occupational Analyst Relationship Specialty Start Date End Date Edgar Li MD [address] [place] [id number] PCP - General FAMILY PRACTICE 05/15/21
--- OUTSIDE RECORDS SUMMARY | 2024-10-15 13:23 | XMS_ITS | Referral Summary ---
Author Organization [facility] [address] Address [address] [place] [address] Care Team Providers Care Cutter Brake Lining Name Role Phone Lewis Miranda MD Primary [...] 07/13/2024 Assessment & Plan (07/13/2024 10:35 AM ROLLER PNEUMATIC): - s/p laparoscopic umbilical hernia repair in 2022 - reports mesh placement - reports intermittent discomfort Hypertension associated with diabetes 07/10/2024 Assessment & Plan (07/13/2024 10:33 AM ROLLER PNEUMATIC): Blood Pressure Management BP Readings from Last [...] 07/10/2024 Assessment & Plan (07/13/2024 10:31 AM ROLLER PNEUMATIC): - chronic condition - status: not well [...] 07/10/2024 Assessment & Plan (07/13/2024 10:35 AM ROLLER PNEUMATIC): - chronic condition, not at goal, poorly [...] 07/10/2024 Assessment & Plan (07/13/2024 10:31 AM ROLLER PNEUMATIC): - chronic condition, worse - has depression, low motivation - currently on Duloxetine DR 60 mg daily - restart Wellbutrin XL 150 mg daily which he used to be on but has been without for some time, script sent in Diabetic polyneuropathy asso ciated with type 2 diabetes mellitus 07/10/2024 Assessment & Plan (07/13/2024 10:32 AM ROLLER PNEUMATIC): - chronic condition, not at goal - [...] 07/10/2024 Assessment & Plan (07/13/2024 10:32 AM ROLLER PNEUMATIC): - chronic condition, not at goal of [...] 07/10/2024 Assessment & Plan (07/13/2024 10:33 AM ROLLER PNEUMATIC): - New or chronic worsening conditions: Dyslipidemia, [...] 07/10/2024 Assessment & Plan (07/13/2024 10:30 AM ROLLER PNEUMATIC): - chronic condition, not at goal. Persisting [...] on file Legal Sex Male 11:26 AM ROLLER PNEUMATIC Gender Identity Not on file Sexual Orientation Not on file Last Filed Vital Signs Vital Sign Reading Time Taken Comments Blood Pressure 128/78 07/10/2024 10:27 AM ROLLER PNEUMATIC Pulse 92 07/10/2024 10:27 AM ROLLER PNEUMATIC Temperature 36.7 C (98.1 F) 07/10/2024 10:27 AM ROLLER PNEUMATIC Respiratory Rate - - Oxygen Saturation 98% 07/10/2024 10: 27 AM ROLLER PNEUMATIC Inhaled Oxygen Concentration - - Weight 112.1 kg (247 lb 3.2 oz) 025 10:27 AM ROLLER PNEUMATIC Height 188 cm (6' 2 ) 07/10/2024 10:27 AM ROLLER PNEUMATIC Body Mass Index 31.74 07/10/2024 10:27 AM ROLLER PNEUMATIC Plan of Treatment Upcoming Encounters Date Type Department Care Team (Late st Contact Info) Description 02/04/2025 10:00 AM CDT Hospital Encounter [address] [address] Vidal Estrada DO [address] [facility] [place] [address] 02/04/2025 10:00 AM CDT - 02/04/2025 10:30 AM CDT Surgery [address] [address] Vidal Estrada DO [address] [facility] [facility] [place] [address] COLONOSCOPY Scheduled Procedures Name Priority Associated Diagnoses Date/Ti me COLONOSCOPY Encounter for screening colonoscopy 02/04/2025 10:00 AM CDT Procedures Procedure Name Priority Date/Time Associated Diagnosis Comments HEPATITIS C ANTIBODY Routine 07/10/2024 11:24 AM ROLLER PNEUMATIC Encounter for hepatitis C screening test for low risk patient EGFR Routine 07/10/2024 11:24 AM ROLLER PNEUMATIC Dyslipidemia associated with type 2 diabetes mellitus (HCC) Type 2 diabetes mellitus with diabetic polyneuropathy, without long-term current use of insulin (HCC) Alcohol use disorder HEMOGLOBIN A1C Routine 07/10/2024 11:24 AM ROLLER PNEUMATIC Type 2 diabetes mellitus with diabetic polyneuropathy, without long-term current use of insulin (HCC) LIPID PANEL Routine 07/10/2024 11:24 AM ROLLER PNEUMATIC Dyslipidemia associated with type 2 diabetes mellitus (HCC) Type 2 diabetes mellitus with diabetic polyneuropathy, without long-term current use of insulin (HCC) ALBUMIN CREATININE RATIO, URINE Routine 07/10/2024 11:24 AM ROLLER PNEUMATIC Type 2 diabetes mellitus with diabetic polyneuropathy, without long-term current use of insulin (HCC) PSA SCREEN Routine 07/10/2024 11:24 AM ROLLER PNEUMATIC Prostate cancer screening from Last 3 Months or Most Recently Relevant to Health Maintenance Results * eGFR (07/10/2024 11:24 AM ROLLER PNEUMATIC) eGFR >90 >=60 mL/min/1. 73 m2 Comment: [...] reviewed 2021. Blood 07/10/2024 11:2 4 AM ROLLER PNEUMATIC 07/10/2024 2:34 PM ROLLER PNEUMATIC Lewis Miranda MD LAB BLOOD ORDERABLES nal Result Performing Organization Address [facility] de Phone [place] [address] [address] [place] [address] * PSA screen (07/10/2024 11:24 AM ROLLER PNEUMATIC) PSA-Total 0.56 <=5.40 ng/mL Comment: Interpretive Data [...] revised 21. Blood 07/10/2024 11:2 4 AM ROLLER PNEUMATIC 07/10/2024 2:17 PM ROLLER PNEUMATIC Lewis Miranda MD LAB BLOOD ORDERABLES [facility] Result Performing Organization Address [facility] [place] [address] [place] [address] * Hepatitis C antibody Blood (07/10/2024 11:24 AM ROLLER PNEUMATIC) Hep C Ab Nonreactive Nonreactive Comment: Interpretive [...] on 2019. Blood 07/10/2024 11:2 4 AM ROLLER PNEUMATIC 07/10/2024 2:17 PM ROLLER PNEUMATIC Lewis Miranda MD LAB MICROBIOLOGY - GENE RAL ORDERABLES Final Result Performing Organization Address [facility] de Phone Number [facility] [address] [place] [address] * Albumin Creatinine Ratio, Urine (07/10/2024 11:24 AM ROLLER PNEUMATIC) Albumin Ur 16.5 mg/L Comment: Interpretive Data No reference range established. Current interpretive data was last revised 2018. Creatinine Ur 129.0 mg/dL [facility] Comment: Interpretive Data No reference range established. Current interpretive data was last revised 2018. Albumin Creatinine Ratio, Ur 13 1 - 29 mg/g [facility] Urine 07/10/2024 11:2 4 AM ROLLER PNEUMATIC 07/10/2024 2:17 PM ROLLER PNEUMATIC Lewis Miranda MD LAB URINE ORDERABLES Fi nal Result Performing Organization Address [facility] Phone Number [facility] [address] [address] [facility] [place] [address] * (ABNORMAL) Hemoglobin A1c (07/10/2024 11:24 AM ROLLER PNEUMATIC) Hgb A1C 9.0(H) 4.0 - 5.6 % Estimated Average Glucose 212 mg/dL [facility] Comment: The ADA recommends reporting an estimated Average Glucose (eAG) with all Hemoglobin A1c results using the equation derived from a study of 507 normal and diabetic adults. Minority populations were underrepresented and children were not included. (Diabetes Care 31:2549-0058, 2008). The eAG is not equivalent to a fasting glucose. Blood 07/10/2024 11:2 4 AM ROLLER PNEUMATIC 07/10/2024 2:17 PM ROLLER PNEUMATIC us Lewis Miranda MD LAB BLOOD ORDERABLES Fi nal Result RORY [address] [facility] Department [place] [address] * (ABNORMAL) Lipid panel (07/10/2024 11:24 AM ROLLER PNEUMATIC) Cholesterol 220(H) 30 - 199 mg/dL Comment: [...] Circulation 2004;110:227 3. Nithin Peterson et al. HTOMAS Cardiol. 2019October 29;5(5):540-548. doi: 10.1001/jamacardio.2020.0013 Current Interpretive [...] RORY HANDY Blood 07/10/2024 11:2 4 AM ROLLER PNEUMATIC 07/10/2024 2:17 PM ROLLER PNEUMATIC Narrative [facility]Y - 07/10/2024 3:13 PM ROLLER PNEUMATIC Has the patient been fasting for 8 hours or more?->No us Lewis Miranda MD LAB BLOOD ORDERABLES Fi nal Result RORY HANDY [address] [address] Department of Laboratories [place] [phone] from Last 3 Months or Most Recently Relevant to Health Maintenance Insurance [facility] Care Teams Cutter Brake Lining Relationship Specialty Start Date End Date Lewis Miranda MD [address] JONES A [address] [address] PCP - General Family Medicine 07/10/24
--- OUTSIDE RECORDS SUMMARY | 2024-10-15 13:23 | XMS_ITS | Clinical Summary ---
Author Organization [facility] [employer] Address [address] [facility] [place] [address] Care Team Providers Care Front Desk Attendant Name Role Phone Edgar Li MD Primary Care Provider [phone]- [phone] [facility] [employer],non-owned Affiliates and Associated Physician Practices is amultiple site organization consisting of ambulatory clinics and hospital sitesin [place], [place], [place] and [place]. This disclosure is being madepursuant to the Care Everywhere program and may not contain all information available regarding this patient. Last updated 18.[facility] [employer] Allergies No known active allergies Medications * [...] Refill [facility] [address] [place] [address], [place] [phone] Edgar Li MD Refill Request 09/15/2024 Telephone [facility] [address], [place] [address] Edgar Li MD Appointment 09/14/[address], [place] [address] Edgar Li MD Refill Request 09/14/[address], [place] [address] Edgar Li MD Refill Request 08/23/[address], [place] [address] Edgar Li MD Refill Request 08/21/[address], [place] [address] Edgar Li MD Refill Request 08/15/[address], [place] [address] Edgar Li MD Refill Request 07/29/[address], [place] [address] Edgar Li MD Refill Request 07/28/[address], [place] [address] Edgar Li MD Refill Request 07/19/[address], [place] [address] Edgar Li MD Refill Request from Last [...] Comments Blood Pressure 124/88 08/20/2023 1:11 PM METAL WORK DUCT INSTALLER Pulse 105 08/20/2023 1:11 PM METAL WORK DUCT INSTALLER Temperature 36.7 C (98.1 F) 06/11/2023 10:09 AM METAL WORK DUCT INSTALLER Respiratory Rate 16 06/17/2023 3:24 PM METAL WORK DUCT INSTALLER Oxygen Saturation 98% 08/20/2023 1:11 PM METAL WORK DUCT INSTALLER Inhaled Oxygen Concentration - - Weight 108.4 kg (239 lb) 08/20/2023 1:11 PM METAL WORK DUCT INSTALLER Height 188 cm (6' 2 ) 08/20/2023 1:11 PM METAL WORK DUCT INSTALLER Body Mass Index 30.69 08/20/2023 1:11 PM METAL WORK DUCT INSTALLER Plan of Treatment Health Maintenance Due Date [...] this topic Medical Devices Implanted Type Area Exercise Equipment Repair Technician Device Identifier Shelf Expiration Date Model / Serial / Lot Mesh Srg Ventralight St Sepra Echo 4.5in Implanted:Qty: 1 on 06/11/2023 by Ryanne Mcelroy MD at [facility] N/A: Abdomen [employer] 12/26/2024 [id number] / / [id number] Procedures Procedure Name Priority Date/Time Associated Diagnosis Comments HEMOGLOBIN A1C - POINT OF CARE (AMB) [facility] Routine 08/20/2023 2:08 PM METAL WORK DUCT INSTALLER Type 2 diabetes mellitus with other specified [...] RNA QN PCR Routine 07/31/2021 11:11 AM METAL WORK DUCT INSTALLER Weight loss, abnormal HIV-1 HIV-2 ANTIBODY + HIV P24 AG PANEL Routine 07/31/2021 11:11 AM METAL WORK DUCT INSTALLER Weight loss, abnormal from Last 3 Months or Most Recently Relevant to Health Maintenance Results * HEMOGLOBIN A1C - POINT OF CARE (AMB) [facility] (08/20/2023 2:08 PM METAL WORK DUCT INSTALLER) Hemoglobin A1c POCT 9.1 % [facility] [address] [facility] Blood BLOOD SPECIMEN / Unknown 08/20/2023 2:08 PM METAL WORK DUCT INSTALLER Edgar Li MD LAB - POINT OF CARE ORDERJulieta REBOLLAR Final Result Performing Organization Address [facility]/ZIP Co de Phone Number PINEDA [address] [facility] [address] [facility] [place] [address], [facility] [phone] * MICROALB/CREAT RATIO URINE RANDOM PANEL (03/26/2023 [...] within a diagnostic category. Test Performed at: [facility] [id number] [place] [address] CHARLY GÓMEZ MD Urine URINE SPECIMEN OBTAINED BY CLEAN CATCH PROCEDURE / Unknown 03/26/2023 7:17 AM CDT 03/26/2023 7:19 AM CDT us Edgar Li MD LAB - URINE CHEMISTRY ORDNatalya STRANGE Final Result Performing Organization Address [facility] Co de Phone Number [facility] [address] [place] [address] * (ABNORMAL) COMPREHENSIVE METABOLIC PANEL (03/26/2023 7:17 [...] 46 U/L [facility] Comment: Test Performed at: [facility] [address] CHARLY GÓMEZ MD Blood BLOOD SPECIMEN / Unknown 03/26/2023 7:17 AM CDT 03/26/2023 7:19 AM CDT Edgar Li MD LAB - CHEMISTRY ORDERABLES Final Result [address] [address] * HEPATITIS C AB W/RFLX TO HCV RNA QN PCR (07/31/2021 11:11 AM METAL WORK DUCT INSTALLER) Hepatitis C Antibody NON-REACTI VE NON-REACT XIANG [facility] Signal to Cut-Off 0.01 <1.00 [facility] Comment: HCV antibody was non-reactive. There is no laboratory evidence of HCV infection. In most cases, no further action is required. However, if recent HCV exposure is suspected, a test for HCV RNA (test code 76608) is suggested. For additional information please refer to http://education.Girly Stuff/faq/HJS91e6 (This link is being provided for informational/ educational purposes only.) Test Performed at: [facility] [address] [place] [address] JODI WELCH DO,MPH Blood BLOOD SPECIMEN / Unknown 07/31/2021 11:11 AM METAL WORK DUCT INSTALLER 07/31/2021 11:15 AM METAL WORK DUCT INSTALLER Ai Wilkes APRN-[employer] LAB - CHEMISTRY ORDERABLE S Final Result Performing Organization Address [facility] de Phone Number DARY[facility] [address] [place] [address] * HIV-1 HIV-2 ANTIBODY + HIV P24 AG PANEL (07/31/2021 11:11 AM METAL WORK DUCT INSTALLER) HIV Screen 4th Generation w Reflex NON-REACT XIANG NON-REACT XIANG [employer] Comment: HIV-1 antigen and HIV-1/HIV-2 antibodies were [...] purpose. For additional information please refer to http://education.Girly Stuff/faq/ARK733 (This link is being provided for informational/ educational purposes only.) The performance of this assay has not been clinically validated in patients less than 2 years old. Test Performed at: [facility] [facility] [address] [place] [address] JODI WELCH DO,MPH Blood BLOOD SPECIMEN / Unknown 07/31/2021 11:11 AM METAL WORK DUCT INSTALLER 07/31/2021 11:15 AM METAL WORK DUCT INSTALLER Ai Wilkes APRN-[employer]UCK [employer] INSTRU[employer] LAB - CHEMISTRY ORDERABLE S Final Result Performing Organization Address [facility] Co de Phone Number [facility] [address] [place] [address] from Last 3 Months or Most Recently Relevant to Health Maintenance Insurance MEDICAID [employer] [facility] Care Teams Front Desk Attendant Relationship Specialty Start Date End Date Edgar Li MD [address] [phone] PCP - General 08/25/20
--- OUTSIDE RECORDS SUMMARY | 2024-10-15 13:23 | XMS_ITS | Clinical Summary ---
Author Organization [facility] [address] Address [address] [place] [address] Care Team Providers Care Commodities Requirements Analyst Name Role Phone Lewis Miranda MD Primary [...] 07/13/2024 Assessment & Plan (07/13/2024 10:35 AM STOCK TRADER): - s/p laparoscopic umbilical hernia repair in 2022 - reports mesh placement - reports intermittent discomfort Hypertension associated with diabetes 07/10/2024 Assessment & Plan (07/13/2024 10:33 AM STOCK TRADER): Blood Pressure Management BP Readings from Last [...] 07/10/2024 Assessment & Plan (07/13/2024 10:31 AM STOCK TRADER): - chronic condition - status: not well [...] 07/10/2024 Assessment & Plan (07/13/2024 10:35 AM STOCK TRADER): - chronic condition, not at goal, poorly [...] 07/10/2024 Assessment & Plan (07/13/2024 10:31 AM STOCK TRADER): - chronic condition, worse - has depression, low motivation - currently on Duloxetine DR 60 mg daily - restart Wellbutrin XL 150 mg daily which he used to be on but has been without for some time, script sent in Diabetic polyneuropathy asso ciated with type 2 diabetes mellitus 07/10/2024 Assessment & Plan (07/13/2024 10:32 AM STOCK TRADER): - chronic condition, not at goal - [...] 07/10/2024 Assessment & Plan (07/13/2024 10:32 AM STOCK TRADER): - chronic condition, not at goal of [...] 07/10/2024 Assessment & Plan (07/13/2024 10:33 AM STOCK TRADER): - New or chronic worsening conditions: Dyslipidemia, [...] 07/10/2024 Assessment & Plan (07/13/2024 10:30 AM STOCK TRADER): - chronic condition, not at goal. Persisting [...] on file Legal Sex Male 11:26 AM STOCK TRADER Gender Identity Not on file Sexual Orientation Not on file Obstetrics History Last Filed Vital Signs Vital Sign Reading Time Taken Comments Blood Pressure 128/78 07/10/2024 10:27 AM STOCK TRADER Pulse 92 07/10/2024 10:27 AM STOCK TRADER Temperature 36.7 C (98.1 F) 07/10/2024 10:27 AM STOCK TRADER Respiratory Rate - - Oxygen Saturation 98% 07/10/2024 10: 27 AM STOCK TRADER Inhaled Oxygen Concentration - - Weight 112.1 kg (247 lb 3.2 oz) 025 10:27 AM STOCK TRADER Height 188 cm (6' 2 ) 07/10/2024 10:27 AM STOCK TRADER Body Mass Index 31.74 07/10/2024 10:27 AM STOCK TRADER Plan of Treatment Upcoming Encounters Date Type Department Care Team (Late st Contact Info) Description 02/04/2025 10:00 AM CDT Hospital Encounter [address] [address] Vidal Estrada DO [address] [place] [address] 02/04/2025 10:00 AM CDT - 02/04/2025 10:30 AM CDT Surgery [address] [address] Vidal Estraad DO [address] [facility] [place] [address] COLONOSCOPY Scheduled Procedures Name Priority Associated Diagnoses [...] HEPATITIS C ANTIBODY Routine 07/10/2024 11:24 AM STOCK TRADER Encounter for hepatitis C screening test for low risk patient EGFR Routine 07/10/2024 11:24 AM STOCK TRADER Dyslipidemia associated with type 2 diabetes mellitus (HCC) Type 2 diabetes mellitus with diabetic polyneuropathy, without long-term current use of insulin (HCC) Alcohol use disorder HEMOGLOBIN A1C Routine 07/10/2024 11:24 AM STOCK TRADER Type 2 diabetes mellitus with diabetic polyneuropathy, without long-term current use of insulin (HCC) LIPID PANEL Routine 07/10/2024 11:24 AM STOCK TRADER Dyslipidemia associated with type 2 diabetes mellitus (HCC) Type 2 diabetes mellitus with diabetic polyneuropathy, without long-term current use of insulin (HCC) ALBUMIN CREATININE RATIO, URINE Routine 07/10/2024 11:24 AM STOCK TRADER Type 2 diabetes mellitus with diabetic polyneuropathy, without long-term current use of insulin (HCC) PSA SCREEN Routine 07/10/2024 11:24 AM STOCK TRADER Prostate cancer screening from Last 3 Months or Most Recently Relevant to Health Maintenance Results * eGFR (07/10/2024 11:24 AM STOCK TRADER) eGFR >90 >=60 mL/min/1. 73 m2 Comment: [...] reviewed 2021. Blood 07/10/2024 11:2 4 AM STOCK TRADER 07/10/2024 2:34 PM STOCK TRADER us Lewis Miranda MD LAB BLOOD ORDERABLES Fi nal Result RORY HANDY [address] [address] Department of Laboratories [place], [place] [phone] * PSA screen (07/10/2024 11:24 AM STOCK TRADER) PSA-Total 0.56 <=5.40 ng/mL Comment: Interpretive Data [...] revised 21. Blood 07/10/2024 11:2 4 AM STOCK TRADER 07/10/2024 2:17 PM STOCK TRADER Lewis Miranda MD LAB BLOOD ORDERABLES Fi nal Result Performing Organization Address [facility] de Phone Number [facility] HANDY [address] [address] [place] [address] * Hepatitis C antibody Blood (07/10/2024 11:24 AM STOCK TRADER) [facility] Hep C Ab Nonreactive Nonreactive Comment: [...] on 2019. Blood 07/10/2024 11:2 4 AM STOCK TRADER 07/10/2024 2:17 PM STOCK TRADER Lewis Miranda MD LAB MICROBIOLOGY - GENE RAL ORDERABLES Final Result Performing Organization Address [facility] [place] [address] [address] [employer] [place], [place] [phone] * Albumin Creatinine Ratio, Urine (07/10/2024 11:24 AM STOCK TRADER) [facility] Albumin Ur 16.5 mg/L Comment: Interpretive Data No reference range established. Current interpretive data was last revised 2018. Creatinine Ur 129.0 mg/dL [facility] Comment: Interpretive Data No reference range established. Current interpretive data was last revised 2018. Albumin Creatinine Ratio, Ur 13 1 - 29 mg/g [facility] Urine 07/10/2024 11:2 4 AM STOCK TRADER 07/10/2024 2:17 PM STOCK TRADER Lewis Miranda MD LAB URINE ORDERABLES Fi nal Result Performing Organization Address [facility] de Phone Number [facility] [address] [address] Department [employer] [place], [place] [phone] * (ABNORMAL) Hemoglobin A1c (07/10/2024 11:24 AM STOCK TRADER) Hgb A1C 9.0(H) 4.0 - 5.6 % Estimated Average Glucose 212 mg/dL [facility] Comment: The ADA recommends reporting an estimated Average Glucose (eAG) with all Hemoglobin A1c results using the equation derived from a study of 507 normal and diabetic adults. Minority populations were underrepresented and children were not included. (Diabetes Care 31:1618-7193, 2008). The eAG is not equivalent to a fasting glucose. Blood 07/10/2024 11:2 4 AM STOCK TRADER 07/10/2024 2:17 PM STOCK TRADER Lewis Miranda MD LAB BLOOD ORDERABLES Fi nal Result Performing Organization Address [facility] de Phone Number [facility] [address] [address] [employer] [place] [address] * (ABNORMAL) Lipid panel (07/10/2024 11:24 AM STOCK TRADER) Cholesterol 220(H) 30 - 199 mg/dL Comment: [...] 4 RORY Blood 07/10/2024 11:2 4 AM STOCK TRADER 07/10/2024 2:17 PM STOCK TRADER Narrative [facility] - 07/10/2024 3:13 PM STOCK TRADER Has the patient been fasting for 8 hours or more?->No Lewis Miranda MD LAB BLOOD ORDERABLES Fi nal Result RORY [address] [address] Department of Laboratories [place], [place] [phone] from Last 3 Months or Most Recently Relevant to Health Maintenance Insurance [facility] Care Teams Commodities Requirements Analyst Relationship Specialty Start Date End Date Lewis Miranda MD [address] JONES A [address] [address] PCP - General Family Medicine 07/10/24
--- OUTSIDE RECORDS SUMMARY | 2024-10-15 13:23 | XMS_ITS | Clinical Summary ---
Author Organization [facility] Care Team Providers Care Digital Media Representative Name Role Phone Unavailable Primary Care Provider Unavailabl e Social History Tobacco Use Types Packs/Day Years Used Date Smoking Tobacco: Never Assessed Sex and Gender Information Value Date Recorded Sex Assigned at Not on file Legal Sex Male 7:58 AM DUPLICATING MACHINE SERVICER Gender Identity Not on file Sexual Orientation [...]
== END 2024-10-15 14:00 | disposition home or self-care (01) ==
PROVIDERS: Emergency Provider Physician Assistant
DX: S46.212A Strain of muscle, fascia and tendon of other parts of biceps, left arm, initial encounter (principal); S09.90XA Unspecified injury of head, initial encounter; I10 Essential (primary) hypertension; E11.9 Type 2 diabetes mellitus without complications; G47.33 Obstructive sleep apnea (adult) (pediatric); F32.A Depression, unspecified; F10.20 Alcohol dependence, uncomplicated; F17.220 Nicotine dependence, chewing tobacco, uncomplicated; Z79.84 Long term (current) use of oral hypoglycemic drugs; Z79.899 Other long term (current) drug therapy; W18.39XA Other fall on same level, initial encounter
CPT/HCPCS: 70450; 73030; 73060; 73080; 99284

== ENCOUNTER 2024-10-22 14:19 | Outpatient (CLI) | payer OTHER, SELFPAY ==
--- NOTE | ~2024-10-22 | MR_ITS ---
MRI of the left shoulder Technique: Axial proton-density fat-sat images, coronal proton density fat-sat and T2 fat-sat images, and sagittal T1-weighted and T2 fat-sat images were acquired. Clinical History: Muscle strain Findings: There is mild AC joint degenerative change with small subacromial spur. Coracoclavicular, c oracoacromial, and coracohumeral ligaments are intact. Probable 12 x 8 mm full-thickness tear at the anterior, distal supraspinatus tendon insertion. No inf raspinatus tear identified. Subscapularis tendon demonstrates moderate grade interstitial tear at the myotendinous junction region. Tendon of long head of the biceps likely ruptured and retracted distal ly into the bicipital groove. There is degenerative attenuation and fraying of the superior labrum. Inferior glenohumeral ligament is intact. No significant effusion or degenerative change of the gleno humeral joint. There is minimal fluid in the subacromial/subdeltoid bursa. No muscle atrophy or edema . Impression: 12 x 8mm full-thickness tear at the anterior, distal supraspinatus tendon insertion. Probable complete rupture of the proximal long head biceps tendon which is presumed retracted out of the [id number] into the bicipital groove in the arm. Moderate grade interstitial tear of the subscapularis at the myotendinous junction region. Degenerative attenuation and fraying of the superior labrum. Reviewed, dictated and finalized at [facility]. Impression: 12 x 8mm full-thickness tear at the anterior, distal supraspinatus tendon inser tion. Probable complete rupture of the proximal long head biceps tendon which is pres umed retracted out of the [id number] into the bicipital groove in the arm. Moderate grade interstitial tear of the subscapularis at the myotendinous junct ion region. Degenerative attenuation and fraying of the superior labrum.
== END 2024-10-22 14:20 | disposition home or self-care (01) ==
LOC: GOSHIMG 14:20
PROVIDERS: PCP Orthopaedic Surgery; Visit Provider Orthopaedic Surgery
DX: S46.212A Strain of muscle, fascia and tendon of other parts of biceps, left arm, initial encounter (principal); X58.XXXA Exposure to other specified factors, initial encounter
CPT/HCPCS: 73221

== ENCOUNTER 2024-12-16 11:21 | Outpatient (CLI) | payer OTHER, SELFPAY ==
--- NOTE | 2024-12-16 | ECG_ITS ---
Test Date: 2024-12-16 12:01:30 Measurements Intervals Justice Rate: 100 P: 69 OH: 163 QRS: -59 QRSD: 106 T: 35 QT: 329 QTc: 425 Interpretive Statements SINUS TACHYCARDIA LEFT ANTERIOR FASCICULAR BLOCK ABNORMAL ECG No previous ECG available for comparison Electronically Signed On 12-16-2024 13:01:04 CDT by Damir Larsen D.O.
[2024-12-16 12:09] LABS: Anion Gap 16 mmol/L (4-12); Blood Urea Nitrogen 11 mg/dL (9-20); Calcium 9.2 mg/dL (8.4-10.2); Carbon Dioxide 24 mmol/L (22-30); Chloride 94 mmol/L (98-107); Estimated Glomerular Filt Rate > 60; Glucose 201 mg/dL (65-110); Potassium 3.8 mmol/L (3.4-5.0); Sodium 134 mmol/L (137-145)
--- OUTSIDE RECORDS SUMMARY | 2024-12-16 13:18 | XMS_ITS | Referral Summary ---
Author Organization [facility] Address [address] [place] [id number] Care Team Providers Care Maintainability Engineer Name Role Phone Lewis Miranda MD Primary Care Provider Encounters Date Type Department Care Team Description 11/12/2024 10:30 AM CDT Office Visit [facility] Primary Care at [address] [phone] Lewis Miranda MD Type 2 diabetes mellitus with diabetic polyneuropathy, without long-term current use of insulin (HCC) (Primary Dx); Dyslipidemia associated with type 2 diabetes mellitus (HCC); Diabetic polyneuropathy associated with type 2 diabetes mellitus (HCC); Hypertension associated with diabetes (HCC); Moderate episode of recurrent major depressive disorder (HCC); Alcohol use disorder; Encounter for screening colonoscopy; Traumatic tear of left rotator cuff, unspecified tear extent, sequela 10/22/2024 Telephone [facility] Primary Care at [address] [phone] Lewis Miranda MD Prior Auth (trulicity) from Last 3 Months Allergies No known active allergies Medications chlorthalidone (HYGROTON) 25 mg tablet Take 1 [...] mouth 2 (two) times a day Active sildenafiL (VIAGRA) 100 mg tabletIndication s:Vasculogenic erectile dysfunction, unspecified vasculogenic erectile dysfunction type Take 1 tablet (100 mg total) by mouth as needed for erectile dysfunction 30 tablet 5 Active cyanocobalamin (Vitamin B-12) 500 mcg tabletIndication s:Prevention of Vitamin B12 Deficiency Take 1 tablet (500 mcg total) by mouth daily 90 tablet 3 5 07/13/19 26 Active Additional Information Patient not taking.Reported on 11/12/2024 dulaglutide (TRULICITY) 1.5 mg/0.5 mL pen injectorIndicati ons:type 2 diabetes mellitus Inject 0.5 mL (1.5 mg total) under the skin every 7 days 2 mL [address] (CYMBALTA) 60 mg capsuleIndicatio ns:Moderate episode of recurrent major depressive disorder (HCC) Take 1 capsule (60 mg total) by mouth daily 90 capsule 3 5 Active buPROPion XL (WELLBUTRIN XL) 300 mg 24 hr tabletIndication s:Moderate episode of recurrent major depressive disorder (HCC) Take 1 tablet (300 mg total) by mouth every morning 90 tablet 3 5 11/13/19 26 Active Active Problems Problem Noted Date Diagnosed Date Traumatic tear of left rotator cuff 11/12/2024 Assessment & Plan (11/12/2024 10:45 AM CDT): Left shoulder rotator cuff tear Left shoulder rotator cuff tear with associated biceps tendon injury, sustained at work. He is under the care of a specialist and has an upcoming appointment for further evaluation and potential surgery. The specialist indicated that the biceps tendon injury may not require repair as it does not significantly affect strength. - Follow up with specialist appointment on November 18, 2024, for further evaluation and management. History of umbilical hernia repair 07/13/2024 Assessment & Plan (07/13/2024 10:35 AM SECURITY SYSTEMS MANAGER): - s/p laparoscopic umbilical hernia repair in 2022 - reports mesh placement - reports intermittent discomfort Hypertension associated with diabetes 07/10/2024 Assessment & Plan (11/12/2024 10:21 AM CDT): Blood Pressure Management BP Readings from Last 3 Encounters: 11/12/24 136/84 07/10/24 128/78 Chronic condition Status - is adequately controlled. Current medications are: Chlorthalidone 25 mg daily Patient is compliant with medications. Patient denies any side effects or adverse side effects from the medication/s. Follow a low salt diet Monitor blood pressure regularly at home The current medical regimen is effective; continue present plan and medications. The 10-year ASCVD risk score (Kermit ROBLEDO, et al., 2019) is: 21.5% Values used to calculate the score: Age: 59 years Sex: Male Is Non- : No Diabetic: Yes Tobacco smoker: No Systolic Blood Pressure: 136 mmHg Is BP treated: Yes HDL Cholesterol: 52 mg/dL Total Cholesterol: 220 mg/dL Lab Results Component Value Date LDLCALC 144 (H) 07/10/2024 Lab Results Component Value Date GLUCOSE 252 (H) 07/10/2024 CALCIUM 10.3 07/10/2024 SODIUM 139 07/10/2024 POTASSIUM 4.5 07/10/2024 CO2 32 07/10/2024 CHLORIDE 95 (L) 07/10/2024 BUNSER 12 07/10/2024 CREATININE 0.66 (L) 07/10/2024 Assessment & Plan (07/13/2024 10:33 AM SECURITY SYSTEMS MANAGER): Blood Pressure Management BP Readings from Last [...] Dyslipidemia associated with type 2 diabetes mauricio liamus 07/10/2024 Assessment & Plan (11/12/2024 10:32 AM CDT): - chronic condition - status: not well controlled. - current management/medications: still not taking it, restart Atorvastatin 40 mg nightly again - other comorbid conditions: T2DM, hypertension - patient is compliant with medications. - most recent LDL as shown below - maintain a healthy weight, diet - will monitor closely - recheck labs, order placed for next visit - continue current management with better adherence to plan of care Lab Results Component Value Date LDLCALC 144 (H) 07/10/2024 Lab Results Component Value Date ALT 18 07/10/2024 AST 21 07/10/2024 ALKPHOS 102 07/10/2024 BILITOT 0.5 07/10/2024 Assessment & Plan (07/13/2024 10:31 AM SECURITY SYSTEMS MANAGER): - chronic condition - status: not well [...] use of insulin 07/10/2024 Assessment & Plan (11/12/2024 10:46 AM CDT): - chronic condition, better controlled - gal A1c <7.0 - has diabetic neuropathy and hyperglycemia - currently on Metformin 1000 BID (States needs to gets better at taking them twice), Trulicity 1.5 mg weekly injection (was out of it and restarted taking it 1 month prior) - need to do diabetic eye exams, again reminder provided - needs to restart taking Atorvastatin 40 mg nightly POC A1c 7.4 11/12/2024 Lab Results Component Value Date HGBA1C 9.0 (H) 07/10/2024 HGBA1C 7.9 (H) 03/26/2023 HGBA1C 11.7 (H) 07/31/2021 Lab Results Component Value Date LDLCALC 144 (H) 07/10/2024 CREATININE 0.66 (L) 07/10/2024 Assessment & Plan (07/13/2024 10:35 AM SECURITY SYSTEMS MANAGER): - chronic condition, not at goal, poorly [...] depressive d isorder 07/10/2024 Assessment & Plan (11/12/2024 10:28 AM CDT): - chronic condition, not at goal with persisting symptoms - has depression, low motivation, and difficulty focusing - her personal issues with ex- - currently on Duloxetine DR 60 mg daily, refill provided - I did restart patient on Wellbutrin extended release 150 mg daily for better control of depression on last visit, reports compliance with medication --> increase to Wellbutrin XL 300 mg daily Assessment & Plan (07/13/2024 10:31 AM SECURITY SYSTEMS MANAGER): - chronic condition, worse - has depression, low motivation - currently on Duloxetine DR 60 mg daily - restart Wellbutrin XL 150 mg daily which he used to be on but has been without for some time, script sent in Diabetic polyneuropathy roddy goyal with type 2 diabetes mellitus 07/10/2024 Assessment & Plan (11/12/2024 10:37 AM CDT): - chronic condition, not at goal - currently on Gabapentin 300 mg TID [address] 60 mg daily - hx of alcohol overuse, not at goal - Recommended patient start B12 supplementation and prescription sent but has not been taking it, again reminder provided - discussed need for better glucemic control Lab Results Component Value Date VITB12 325 07/10/2024 Lab Results Component Value Date HGBA1C 9.0 (H) 07/10/2024 Lab Results Component Value Date FOLATE 11.7 07/10/2024 Assessment & Plan (07/13/2024 10:32 AM SECURITY SYSTEMS MANAGER): - chronic condition, not at goal - [...] Alcohol use disorder 07/10/2024 Assessment & Plan (11/12/2024 10:39 AM CDT): - chronic condition, not at goal of being alcohol free - has been to rehab facility for alcohol disorder in the past - currently drinks 5-6 beers/daily/nightly - in the past used to drink more - check labs, order placed with results as shown below - start B12 500 mcg daily again recommendation provided as he has not started to - recommend alcohol abstinence Lab Results Component Value Date ALT 18 07/10/2024 AST 21 07/10/2024 ALKPHOS 102 07/10/2024 BILITOT 0.5 07/10/2024 Lab Results Component Value Date VITB12 325 07/10/2024 Lab Results Component Value Date FOLATE 11.7 07/10/2024 Assessment & Plan (07/13/2024 10:32 AM SECURITY SYSTEMS MANAGER): - chronic condition, not at goal of [...] 07/10/2024 Assessment & Plan (07/13/2024 10:33 AM SECURITY SYSTEMS MANAGER): - New or chronic worsening conditions: Dyslipidemia, [...] 07/10/2024 Assessment & Plan (07/13/2024 10:30 AM SECURITY SYSTEMS MANAGER): - chronic condition, not at goal. Persisting difficulty with erection maintenance - increase Sildenafil from 50 mg to 100 mg for use prior to sexual intercourse - discussed warning signs, if prolonged erection over 4 hrs need to go to the Emergency department - no nitrate medications that he is on Encounter for screening colonoscopy 07/10/2024 Assessment & Plan (11/12/2024 10:23 AM CDT): - Referred to Gastroenterology and has a colonoscopy scheduled for February 04, 2025 Immunizations Immunization Administration Dates Next Due Hep [...] uit: Not Asked; Counseling Given: Not Answered PHQ-2 Answer Date Recorded PHQ-2 Total Score (If total score is 3 or more points, staff should administer the PHQ-9) 0 11/12/2024 Sex and Gender Information Value Date Recorded Sex Assigned at Not on file Legal Sex Male 11:26 AM SECURITY SYSTEMS MANAGER Gender Identity Not on file Sexual Orientation Not on file Last Filed Vital Signs Vital Sign Reading Time Taken Comments Blood Pressure 136/84 11/12/2024 10:16 AM CDT Pulse 90 11/12/2024 10:16 AM CDT Temperature 36.7 C (98.1 F) 11/12/2024 10:16 AM CDT Respiratory Rate - - Oxygen Saturation 98% 11/12/2024 10:16 AM CDT Inhaled Oxygen Concentration - - Weight 110.7 kg (244 lb) 11/12/2024 10:16 AM CDT Height 188 cm (6' 2) 11/12/2024 10:16 AM CDT Body Mass Index 31.33 11/12/2024 10:16 AM CDT Plan of Treatment Upcoming Encounters Date Type Department Care Team (Late st Contact Info) Description 02/04/2025 10:00 AM CDT Hospital Encounter [address] [address] Vidal Estrada DO [address] [place] [address] [place] [address] 02/04/2025 10:00 AM CDT - 02/04/2025 10:30 AM CDT Surgery [address] [address] Vidal Estrada, DO [address] [facility] [place] [address] COLONOSCOPY Scheduled Procedures Name Priority Associated Diagnoses Date/Ti me COLONOSCOPY Encounter for screening colonoscopy 02/04/2025 10:00 AM CDT Procedures Procedure Name Priority Date/Time Associated Diagnosis Comments POCT HEMOGLOBIN A1C Routine 11/12/2024 1 0:46 AM CDT Type 2 diabetes mellitus with diabetic polyneuropathy, without long-term current use of insulin (HCC) HEPATITIS C ANTIBODY Routine 07/10/2024 11:24 AM SECURITY SYSTEMS MANAGER Encounter for hepatitis C screening test for low risk patient EGFR Routine 07/10/2024 11:24 AM SECURITY SYSTEMS MANAGER Dyslipidemia associated with type 2 diabetes mellitus (HCC) Type 2 diabetes mellitus with diabetic polyneuropathy, without long-term current use of insulin (HCC) Alcohol use disorder LIPID PANEL Routine 07/10/2024 11:24 AM SECURITY SYSTEMS MANAGER Dyslipidemia associated with type 2 diabetes mellitus (HCC) Type 2 diabetes mellitus with diabetic polyneuropathy, without long-term current use of insulin (HCC) ALBUMIN CREATININE RATIO, URINE Routine 07/10/2024 11:24 AM SECURITY SYSTEMS MANAGER Type 2 diabetes mellitus with diabetic polyneuropathy, without long-term current use of insulin (HCC) PSA SCREEN Routine 07/10/2024 11:24 AM SECURITY SYSTEMS MANAGER Prostate cancer screening from Last 3 Months or Most Recently Relevant to Health Maintenance Results * (ABNORMAL) POCT hemoglobin A1c (11/12/2024 10:46 AM CDT) Hemoglobin A1C, POC 7.4(A) 4.0 - 5.6 % Blood 11/12/2024 10:4 6 AM CDT Lewis Miranda MD POINT OF CARE TEST ANUEL STRANGE Final Result * eGFR (07/10/2024 11:24 AM SECURITY SYSTEMS MANAGER) eGFR >90 >=60 mL/min/1. 73 m2 Comment: [...] reviewed 2021. Blood 07/10/2024 11:2 4 AM SECURITY SYSTEMS MANAGER 07/10/2024 2:34 PM SECURITY SYSTEMS MANAGER us Lewis Miranda MD LAB BLOOD ORDERABLES Fi nal Result [facility] [id number] Department [place] [address] * PSA screen (07/10/2024 11:24 AM SECURITY SYSTEMS MANAGER) PSA-Total 0.56 <=5.40 ng/mL Comment: Interpretive Data [...] revised 21. Blood 07/10/2024 11:2 4 AM SECURITY SYSTEMS MANAGER 07/10/2024 2:17 PM SECURITY SYSTEMS MANAGER Lewis Miranda MD LAB BLOOD ORDERABLES Fi nal Result Performing Organization Address [facility] de Phone Number [facility] [id number] [address] [facility] [place] [address] * Hepatitis C antibody Blood (07/10/2024 11:24 AM SECURITY SYSTEMS MANAGER) Hep C Ab Nonreactive Nonreactive Comment: Interpretive [...] on 2019. Blood 07/10/2024 11:2 4 AM SECURITY SYSTEMS MANAGER 07/10/2024 2:17 PM SECURITY SYSTEMS MANAGER Lewis Miranda MD LAB MICROBIOLOGY - GENE RAL ORDERABLES Final Result Performing Organization Address [facility] Phone Number [facility] [phone] [address] [facility] [place] [address] * Albumin Creatinine Ratio, Urine (07/10/2024 11:24 AM SECURITY SYSTEMS MANAGER) Albumin Ur 16.5 mg/L Comment: Interpretive Data No reference range established. Current interpretive data was last revised 2018. Creatinine Ur 129.0 mg/dL [facility] Comment: Interpretive Data No reference range established. Current interpretive data was last revised 2018. Albumin Creatinine Ratio, Ur 13 1 - 29 mg/g [facility] Urine 07/10/2024 11:2 4 AM SECURITY SYSTEMS MANAGER 07/10/2024 2:17 PM SECURITY SYSTEMS MANAGER Lewis Miranda MD LAB URINE ORDERABLES Fi nal Result Performing Organization Address [facility] de Phone Number [facility] [id number] [facility] Department [place] [address] * (ABNORMAL) Lipid panel (07/10/2024 11:24 AM SECURITY SYSTEMS MANAGER) Cholesterol 220(H) 30 - 199 mg/dL Comment: [...] NCEP Expert Panel. Circulation 2004;110:227 3. Nithin M et al. THOMAS Cardiol. 2020 October [...] 4 [facility] Blood 07/10/2024 11:2 4 AM SECURITY SYSTEMS MANAGER 07/10/2024 2:17 PM SECURITY SYSTEMS MANAGER Narrative [facility] - 07/10/2024 3:13 PM SECURITY SYSTEMS MANAGER Has the patient been fasting for 8 hours or more?->No Lewis Miranda MD LAB BLOOD ORDERABLES Fi nal Result [facility] [id number] Department [place] [address] from Last 3 Months or Most Recently Relevant to Health Maintenance Insurance [employer] [facility] Care Teams Maintainability Engineer Relationship Specialty Start Date End Date Lewis Miranda MD [address] [facility] [address] [place] [address] PCP - General Family Medicine 12/08/24
--- OUTSIDE RECORDS SUMMARY | 2024-12-16 13:18 | XMS_ITS | Clinical Summary ---
Author Organization [facility] Address [address] [place] [address] Care Team Providers Care Gathering Machine Setter Name Role Phone Edgar Li MD Primary Care Provider [phone] Source Comments [facility],non-owned Affiliates and Associated Physician Practices is amultiple site organization consisting of ambulatory clinics and hospital sitesin [place], [place], [place] and [place]. This disclosure is being madepursuant to the Care Everywhere program and may not contain all information available regarding this patient. Last updated 18.[facility] Allergies No known active allergies Medications * [...] long-term current use of insulin (HCC) INJECT 1.5 MG (1/2 ML) SUBCUTANEOUSLY ONCE A WEEK 12 mL 10/21/19 25 Active chlorthalidone (Hygroton) 25 MG tabletIndicatio ns:Hypertension , unspecified type Take 1 tablet by mouth once daily 15 tablet 11/14/19 25 Active Active Problems Problem Noted Date [...] Encounters Date Type Department Care Team Description 11/27/2024 Refill [facility] - Family Medicine [address] [place] [address], [place] [address] Edgar Li MD Refill Request 11/13/2024 Refill [facility] [address], [place] [address] Edgar iL MD Refill Request 10/20/[address], [place] [address] Edgar Li MD Refill Request 10/16/[address], [place] [address] Edgar Li MD Refill Request 09/21/[address], [place] [address] Edgar Li MD Refill Request 09/15/[address], [place] [address] Edgar Li MD Appointment from Last 3 Months Immunizations Immunization Administration [...] Comments Blood Pressure 124/88 08/20/2023 1:11 PM EMULSION OPERATOR Pulse 105 08/20/2023 1:11 PM EMULSION OPERATOR Temperature 36.7 C (98.1 F) 06/11/2023 10:09 AM EMULSION OPERATOR Respiratory Rate 16 06/17/2023 3:24 PM EMULSION OPERATOR Oxygen Saturation 98% 08/20/2023 1:11 PM EMULSION OPERATOR Inhaled Oxygen Concentration - - Weight 108.4 kg (239 lb) 08/20/2023 1:11 PM EMULSION OPERATOR Height 188 cm (6' 2) 08/20/2023 1:11 PM EMULSION OPERATOR Body Mass Index 30.69 08/20/2023 1:11 PM EMULSION OPERATOR Plan of Treatment Health Maintenance Due Date [...] , 03/09/2022, Additional history exists COVID-19 VACCINE ( - season) 2024 06/21/2021 DIABETES-FOOT EXAM WITH [...] this topic Medical Devices Implanted Type Area Packing Machine Can Feeder Device Identifier Shelf Expiration Date Model / Serial / Lot Mesh Srg Ventralight St Sepra Echo 4.5in Implanted:Qty: 1 on 06/11/2023 by Ryanne Mcelroy MD at [facility] N/A: Abdomen [employer] 12/26/2024 [id number] / / [id number] Procedures Procedure Name Priority Date/Time Associated Diagnosis Comments HEMOGLOBIN A1C - POINT OF CARE (AMB) [facility] Routine 08/20/2023 2:08 PM EMULSION OPERATOR Type 2 diabetes mellitus with other specified [...] RNA QN PCR Routine 07/31/2021 11:11 AM EMULSION OPERATOR Weight loss, abnormal HIV-1 HIV-2 ANTIBODY + HIV P24 AG PANEL Routine 07/31/2021 11:11 AM EMULSION OPERATOR Weight loss, abnormal from Last 3 Months or Most Recently Relevant to Health Maintenance Results * HEMOGLOBIN A1C - POINT OF CARE (AMB) [facility] (08/20/2023 2:08 PM EMULSION OPERATOR) Hemoglobin A1c POCT 9.1 % [address] Blood BLOOD SPECIMEN / Unknown 08/20/2023 2:08 PM EMULSION OPERATOR Edgar Li MD LAB - POINT OF CARE ORDERA BLES Final Result Performing Organization Address [facility]/State/ZIP Co de Phone Number [address], [place] [address], [facility] [phone] * MICROALB/CREAT RATIO URINE RANDOM PANEL (03/26/2023 [...] within a diagnostic category. Test Performed at: [employer] [facility] [address] [facility] [place] [address] CHARLY GÓMEZ MD Urine URINE SPECIMEN OBTAINED BY CLEAN CATCH PROCEDURE / Unknown 03/26/2023 7:17 AM CDT 03/26/2023 7:19 AM CDT Edgar Li MD LAB - URINE CHEMISTRY ANUEL STRANGE Final Result [address] [address] * (ABNORMAL) COMPREHENSIVE METABOLIC PANEL (03/26/2023 7:17 [...] 46 U/L [facility] Comment: Test Performed at: [facility] [address] [place] [address] CHARLY GÓMEZ MD Blood BLOOD SPECIMEN / Unknown 03/26/2023 7:17 AM CDT 03/26/2023 7:19 AM CDT Edgar Li MD LAB - CHEMISTRY ORDERABLES Final Result Performing Organization Address [facility] de Phone Number [facility] [address] [place] [address] * HEPATITIS C AB W/RFLX TO HCV RNA QN PCR (07/31/2021 11:11 AM EMULSION OPERATOR) Hepatitis C Antibody NON-REACTI VE NON-REACT XIANG [facility] Signal to Cut-Off 0.01 <1.00 [facility] Comment: HCV antibody was non-reactive. There is no laboratory evidence of HCV infection. In most cases, no further action is required. However, if recent HCV exposure is suspected, a test for HCV RNA (test code 37609) is suggested. For additional information please refer to http://education.[employer] ([employer])/faq/DLL97z1 (This link is being provided for informational/ educational purposes only.) Test Performed at: [employer] [address] [place] [address] JODI WELCH DO,MPH Blood BLOOD SPECIMEN / Unknown 07/31/2021 11:11 AM EMULSION OPERATOR 07/31/2021 11:15 AM EMULSION OPERATOR Result [facility] Ai Wilkes APRN-EXECUTIVE CHAIRMAN LAB - CHEMISTRY ORDERABLE S Final Result Performing Organization Address [facility] Co de Phone Number [facility] [address] [place] [address] * HIV-1 HIV-2 ANTIBODY + HIV P24 AG PANEL (07/31/2021 11:11 AM EMULSION OPERATOR) HIV Screen 4th Generation w Reflex NON-REACT XIANG NON-REACT XIANG [facility] Comment: HIV-1 antigen and HIV-1/HIV-2 antibodies were [...] purpose. For additional information please refer to http://education.[employer] ([employer]EEP)/faq/QAW385 (This link is being provided for informational/ educational purposes only.) The performance of this assay has not been clinically validated in patients less than 2 years old. Test Performed at: [employer] [facility] [address] [place] [address] JODI WELCH DO,MPH Blood BLOOD SPECIMEN / Unknown 07/31/2021 11:11 AM EMULSION OPERATOR 07/31/2021 11:15 AM EMULSION OPERATOR Ai Wilkes MOLDING PRESS OPERATOR-EXECUTIVE CHAIRMAN LAB - CHEMISTRY ORDERABLE S Final Result Performing Organization Address City/State/[facility] Co de Phone Number [facility] [address] [place] [address] from Last 3 Months or Most Recently Relevant to Health Maintenance Insurance MEDICAID [employer] [facility] Care Teams Gathering Machine Setter Relationship Specialty Start Date End Date Edgar Li MD [address] [place] [phone] PCP - General 08/25/20
--- OUTSIDE RECORDS SUMMARY | 2024-12-16 13:18 | XMS_ITS | Clinical Summary ---
Author Organization [facility] Care Team Providers Care Network Security Engineer Name Role Phone Unavailable Primary Care Provider Unavailabl e Social History Tobacco Use Types Packs/Day Years Used Date Smoking Tobacco: Never Assessed Sex and Gender Information Value Date Recorded Sex Assigned at Not on file Legal Sex Male 7:58 AM RUNNER ON Gender Identity Not on file Sexual Orientation [...]
--- OUTSIDE RECORDS SUMMARY | 2024-12-16 13:18 | XMS_ITS | Clinical Summary ---
Author Organization [facility] [address] Address [address] [place] [address] Care Team Providers Care Back Line Cook Name Role Phone Lewis Miranda MD Primary Care Provider Allergies No known active allergies Medications chlorthalidone [...] 07/13/2024 Assessment & Plan (07/13/2024 10:35 AM FURNITURE UPHOLSTERER): - s/p laparoscopic umbilical hernia repair in [...] 07/10/2024 Assessment & Plan (07/13/2024 10:33 AM FURNITURE UPHOLSTERER): Blood Pressure Management BP Readings from Last [...] diabetes mauricio litus 07/10/2024 Assessment & Plan (11/12/2024 10:32 AM [...] 07/10/2024 Assessment & Plan (07/13/2024 10:31 AM FURNITURE UPHOLSTERER): - chronic condition - status: not well [...] 07/10/2024 Assessment & Plan (07/13/2024 10:35 AM FURNITURE UPHOLSTERER): - chronic condition, not at goal, poorly [...] daily Assessment & Plan (07/13/2024 10:31 AM FURNITURE UPHOLSTERER): - chronic condition, worse - has depression, [...] 07/10/2024 Assessment & Plan (07/13/2024 10:32 AM FURNITURE UPHOLSTERER): - chronic condition, not at goal - [...] 07/10/2024 Lab Results Component Value Date FOLATE 1107/10/2024 Assessment & Plan (07/13/2024 10:32 AM FURNITURE UPHOLSTERER): - chronic condition, not at goal of [...] 07/10/2024 Assessment & Plan (07/13/2024 10:33 AM FURNITURE UPHOLSTERER): - New or chronic worsening conditions: Dyslipidemia, [...] 07/10/2024 Assessment & Plan (07/13/2024 10:30 AM FURNITURE UPHOLSTERER): - chronic condition, not at goal. Persisting [...] a colonoscopy scheduled for February 04, 2025 Encounters Date Type Department Care Team Description 11/12/2024 10:30 AM CDT Office Visit [facility] Medical [facility] Primary Care at [place] [phone] Lewis Miranda MD Type 2 diabetes mellitus [...] cuff, unspecified tear extent, sequela 10/22/2024 Telephone [facility] Medical [facility] Primary Care at [address] [address] Lewis Miranda MD Prior Auth (trulicity) from Last 3 Months Immunizations Immunization Administration Dates Next Due Hep [...] on file Legal Sex Male 11:26 AM FURNITURE UPHOLSTERER Gender Identity Not on file Sexual Orientation [...] Description 02/04/2025 10:00 AM CDT Hospital Encounter [address] [address] Vidal Estrada, [address] [place] [address] [place] [address] 02/04/2025 10:00 AM CDT - 02/04/2025 10:30 AM CDT Surgery [address] [place] [address] Vidal Estrada, DO [address] [facility] [place] [address] COLONOSCOPY Scheduled Procedures Name Priority Associated Diagnoses Date/Ti me COLONOSCOPY Encounter for screening colonoscopy 02/04/2025 10:00 AM CDT Health Maintenance Due Date Last Done Comments Colon Cancer Screening-Colonoscopy 1965 Dilated Eye Exam 1965 Foot Exam 1965 Pneumococcal vaccine <65 (2 of 2 - PCV) 07/25/2022 07/25/2021 Covid-19 Vaccine (2 - 2023-2 5 season) 2024 06/21/2021 Influenza Vaccine (Season Ended) 2025 07/02/2023, 07/04/2017, 04/02/2014, Additional history exists Hemoglobin A1C 05/15/2025 11/12/2024, 07/01, 03/26/2023, Additional history exists Albumin Creatinine Ratio, Urine 07/10/2025 Lipid Panel 07/10/2025 07/10/2024 Regular Well Visit/Exam 18-64 07/10/2025 07/10/2024 eGFR 07/10/2025 07/10/2024 Depression Screening 11/12/2025 11/12/2024 Prostate Cancer Screening-PSA 07/10/2026 07/10/2024 DTaP/Tdap/Td Vaccine [...] HEPATITIS C ANTIBODY Routine 07/10/2024 11:24 AM FURNITURE UPHOLSTERER Encounter for hepatitis C screening test for low risk patient EGFR Routine 07/10/2024 11:24 AM FURNITURE UPHOLSTERER Dyslipidemia associated with type 2 diabetes mellitus (HCC) Type 2 diabetes mellitus with diabetic polyneuropathy, without long-term current use of insulin (HCC) Alcohol use disorder LIPID PANEL Routine 07/10/2024 11:24 AM FURNITURE UPHOLSTERER Dyslipidemia associated with type 2 diabetes mellitus (HCC) Type 2 diabetes mellitus with diabetic polyneuropathy, without long-term current use of insulin (HCC) ALBUMIN CREATININE RATIO, URINE Routine 07/10/2024 11:24 AM FURNITURE UPHOLSTERER Type 2 diabetes mellitus with diabetic polyneuropathy, without long-term current use of insulin (HCC) PSA SCREEN Routine 07/10/2024 11:24 AM FURNITURE UPHOLSTERER Prostate cancer screening from Last 3 Months or Most Recently Relevant to Health Maintenance Results * (ABNORMAL) POCT hemoglobin A1c (11/12/2024 10:46 AM CDT) Hemoglobin A1C, POC 7.4(A) 4.0 - 5.6 % Blood 11/12/2024 10:4 6 AM CDT Lewis Miranda MD POINT OF CARE TEST ANUEL STRANGE Final Result * eGFR (07/10/2024 11:24 AM FURNITURE UPHOLSTERER) eGFR >90 >=60 mL/min/1. 73 m2 Comment: [...] of Race in Diagnosing Kidney Disease, JASN 2021). The CKD-EPI equation should not be used for patients with unstable renal function and has not been validated in children and those over 70. Current interpretive data was last reviewed 2021. Blood 07/10/2024 11:2 4 AM FURNITURE UPHOLSTERER 07/10/2024 2:34 PM FURNITURE UPHOLSTERER Lewis Miranda MD LAB BLOOD ORDERABLES nal Result Performing Organization Address [facility] de Phone Number [facility] [address] [address] [place] [address] * PSA screen (07/10/2024 11:24 AM FURNITURE UPHOLSTERER) PSA-Total 0.56 <=5.40 ng/mL Comment: Interpretive Data [...] revised 21. Blood 07/10/2024 11:2 4 AM FURNITURE UPHOLSTERER 07/10/2024 2:17 PM FURNITURE UPHOLSTERER Lewis Miranda MD LAB BLOOD ORDERABLES nal Result Performing Organization Address [facility] de Phone Number [facility] [place] [address] [address] Hassan Department [place] [address] * Hepatitis C antibody Blood (07/10/2024 11:24 AM FURNITURE UPHOLSTERER) Hep C Ab Nonreactive Nonreactive Comment: Interpretive [...] on 2019. Blood 07/10/2024 11:2 4 AM FURNITURE UPHOLSTERER 07/10/2024 2:17 PM FURNITURE UPHOLSTERER Lewis Miranda MD LAB MICROBIOLOGY - GENE RAL ORDERABLES Final Result Performing Organization Address [facility] Phone Number [facility] [address] [place] [address] * Albumin Creatinine Ratio, Urine (07/10/2024 11:24 AM FURNITURE UPHOLSTERER) Albumin Ur 16.5 mg/L Comment: Interpretive Data No reference range established. Current interpretive data was last revised 2018. Creatinine Ur 129.0 mg/dL [facility] Comment: Interpretive Data No reference range established. Current interpretive data was last revised 2018. Albumin Creatinine Ratio, Ur 13 1 - 29 mg/g [facility] Urine 07/10/2024 11:2 4 AM FURNITURE UPHOLSTERER 07/10/2024 2:17 PM FURNITURE UPHOLSTERER Lewis Miranda MD LAB URINE ORDERABLES Fi nal Result Performing Organization Address [facility] Phone Number [facility] [address] [place] [address] * (ABNORMAL) Lipid panel (07/10/2024 11:24 AM FURNITURE UPHOLSTERER) Cholesterol 220(H) 30 - 199 mg/dL Comment: [...] 3. Nithin Peterson et al. THOMAS Cardiol. 2020 October 29;5(5):540-548. [...] [facility] Blood 07/10/2024 11:2 4 AM FURNITURE UPHOLSTERER 07/10/2024 2:17 PM FURNITURE UPHOLSTERER Narrative [facility] - 07/10/2024 3:13 PM FURNITURE UPHOLSTERER Has the patient been fasting for 8 hours or more?->No Lewis Miranda MD LAB BLOOD ORDERABLES nal Result [facility] [address] Department [place] [address] from Last 3 Months or Most Recently Relevant to Health Maintenance Insurance [facility] Care Teams Back Line Cook Relationship Specialty Start Date End Date Lewis Miranda MD [address] [address] PCP - General Family Medicine 12/08/24
== END 2024-12-16 11:22 | disposition home or self-care (01) ==
PROVIDERS: Visit Provider Orthopaedic Surgery
DX: M25.512 Pain in left shoulder (principal); I44.4 Left anterior fascicular block
CPT/HCPCS: 36415; 80048; 93005